=== PATIENT | male | born 1945 | race Caucasian/White ===

== ENCOUNTER 2020-08-28 08:06 | Outpatient (REF) | payer MEDICARE, OTHER, SELFPAY ==
[2020-08-28 09:30] LABS: Prostate Specific Antigen 0.89 ng/mL (<0.05-4.0)
== END 2020-08-28 08:07 | disposition home or self-care (01) ==
LOC: HO.LAB 08:06
PROVIDERS: PCP Family Medicine; Visit Provider Urology
DX: C61 Malignant neoplasm of prostate (principal)
CPT/HCPCS: 36415; 84153

== ENCOUNTER 2021-03-26 08:06 | Outpatient (REF) | payer MEDICARE, OTHER, SELFPAY | END 2021-03-26 08:07 | disposition home or self-care (01) | LOC: HO.LAB 08:06 | PROVIDERS: PCP Family Medicine; Visit Provider Urology | DX: Z12.5 Encounter for screening for malignant neoplasm of prostate (principal); R97.20 Elevated prostate specific antigen [PSA] | CPT/HCPCS: 36415; 84153 ==

== ENCOUNTER → 2021-04-02 14:33 | Outpatient (BNVA) | payer MEDICARE, OTHER, SELFPAY | PROVIDERS: PCP Family Medicine; Visit Provider Urology | DX: C61 Malignant neoplasm of prostate (principal); N40.1 Benign prostatic hyperplasia with lower urinary tract symptoms; N13.8 Other obstructive and reflux uropathy | CPT/HCPCS: 99212 ==

== ENCOUNTER 2022-03-25 09:02 | Outpatient (REF) | payer MEDICARE, OTHER, SELFPAY ==
[2022-03-25 10:40] LABS: Prostate Specific Antigen 0.66 ng/mL (<0.05-4.0)
== END 2022-03-25 09:03 | disposition home or self-care (01) ==
LOC: HO.LAB 09:02
PROVIDERS: PCP Family Medicine; Visit Provider Urology
DX: Z12.5 Encounter for screening for malignant neoplasm of prostate (principal); N40.1 Benign prostatic hyperplasia with lower urinary tract symptoms; N13.8 Other obstructive and reflux uropathy
CPT/HCPCS: 36415; 84153

== ENCOUNTER → 2022-04-03 09:26 | Outpatient (BNVA) | payer MEDICARE, OTHER, SELFPAY | PROVIDERS: PCP Family Medicine; Visit Provider Urology | DX: C61 Malignant neoplasm of prostate (principal); N40.1 Benign prostatic hyperplasia with lower urinary tract symptoms; N13.8 Other obstructive and reflux uropathy | CPT/HCPCS: 99212 ==

== ENCOUNTER 2022-08-13 08:01 | Outpatient (REF) | payer MEDICARE, OTHER, SELFPAY ==
[2022-08-13 08:13] LABS: MANUAL DIFF FLAG NO
[2022-08-13 08:30] LABS: Basophils Absolute Auto 0.1 X10*3/uL (0.0-0.2); Basophils Percent Auto 1.1 % (0-2); Eosinophils Absolute Auto 0.3 X10*3/uL (0.0-0.4); Eosinophils Percent Auto 3.9 % (0-4); Hematocrit 46.4 % (42.0-52.0); Hemoglobin 15.4 g/dl (14.0-18.0); Imm Gran Abs Auto 0.01 X10*3/uL (0.00-0.03); Imm Gran Pct Auto 0.1 % (0.0-0.4); Lymphocytes Absolute Auto 1.8 X10*3/uL (1.2-4.9); Lymphocytes Percent Auto 24.7 % (20-40); Mean Corpuscular HGB Conc 33.2 g/dl (31.0-36.0); Mean Corpuscular Hemoglobin 29.6 pg (27.0-33.0); Mean Corpuscular Volume 89.1 fL (80.0-98.0); Mean Platelet Volume 9.1 fL (9.4-12.4); Monocytes Absolute Auto 0.4 X10*3/uL (0.1-1.2); Monocytes Percent Auto 6.1 % (2-11); Neutrophils Absolute Auto 4.7 x10*3/uL (2.0-8.3); Neutrophils Percent Auto 64.1 % (45-73); Platelet Count 318 X10*3/uL (160-400); Red Blood Count 5.21 X10*6/uL (4.60-5.80); White Blood Count 7.3 X10*3/uL (4.8-10.8)
[2022-08-13 08:34] LABS: Estimated Average Glucose 128 mg/dL; Hemoglobin A1c % 6.1 %
[2022-08-13 09:29] LABS: Alanine Aminotransferase 17 U/L (0-40); Albumin Level 3.9 g/dL (3.5-5.0); Alkaline Phosphatase 66 U/L (39-117); Anion Gap 12 (12-20); Aspartate Amino Transferase 21 U/L (5-37); Bilirubin Total 0.7 mg/dL (0.0-1.0); Blood Urea Nitrogen 9 mg/dL (9-16); Calcium 9.5 mg/dL (8.4-10.2); Carbon Dioxide 32 mmol/L (22-29); Chloride 98 mmol/L (96-108); Cholesterol 178 mg/dL; Estimated Glomerular Filt Rate > 60; Glucose Random 160 mg/dL (60-115); HDL Cholesterol 72 mg/dL; Iron 118 mcg/dL (45-160); LDL Cholesterol Calculated 95 mg/dl; Osmolality, Serum 293 mosm/kg (281-305); Percent Iron Saturation 37 % (15-50); Potassium 3.8 mmol/L (3.3-5.1); Sodium 138 mmol/L (135-145); TSH reflex Free T4 0.64 uIU/mL (0.32-4.0); Total Iron Binding Capacity 323 mcg/dL (228-428); Total Protein 6.9 g/dL (6.5-8.0); Triglycerides 55 mg/dL; Unsaturated Iron Binding 205 ug/dL
[2022-08-13 18:56] LABS: Creatinine Urine 273.11 mg/dL; Microalbum/Creatinine Ratio Ur 36.6 ug/mg cr
[2022-08-13 19:25] LABS: Osmolality Urine 595 mosm/kg (373-1093)
== END 2022-08-13 08:02 | disposition home or self-care (01) ==
LOC: HO.LAB 08:01
PROVIDERS: PCP Family Medicine; Visit Provider Internal Medicine
DX: C61 Malignant neoplasm of prostate (principal); E11.9 Type 2 diabetes mellitus without complications; E78.5 Hyperlipidemia, unspecified; R06.6 Hiccough; E61.1 Iron deficiency
CPT/HCPCS: 36415; 80053; 80061; 82043; 83036; 83540; 83930; 83935; 84443; 85025

== ENCOUNTER 2022-11-10 11:47 | Outpatient (REF) | payer MEDICARE, OTHER, SELFPAY ==
[2022-11-10 14:05] LABS: MANUAL DIFF FLAG NO
[2022-11-10 14:09] LABS: Basophils Absolute Auto 0.1 X10*3/uL (0.0-0.2); Basophils Percent Auto 0.5 % (0-2); Eosinophils Absolute Auto 0.1 X10*3/uL (0.0-0.4); Eosinophils Percent Auto 0.6 % (0-4); Hematocrit 45.6 % (42.0-52.0); Hemoglobin 15.4 g/dl (14.0-18.0); Imm Gran Abs Auto 0.09 X10*3/uL (0.00-0.03); Imm Gran Pct Auto 0.5 % (0.0-0.4); Lymphocytes Absolute Auto 0.9 X10*3/uL (1.2-4.9); Lymphocytes Percent Auto 4.9 % (20-40); Mean Corpuscular HGB Conc 33.8 g/dl (31.0-36.0); Mean Corpuscular Hemoglobin 30.7 pg (27.0-33.0); Monocytes Absolute Auto 0.9 X10*3/uL (0.1-1.2); Neutrophils Absolute Auto 15.8 x10*3/uL (2.0-8.3); Neutrophils Percent Auto 88.5 % (45-73); Platelet Count 273 X10*3/uL (160-400); Red Blood Count 5.01 X10*6/uL (4.60-5.80); Red Cell Distribution Width 13.4 % (11.0-16.0); White Blood Count 17.9 X10*3/uL (4.8-10.8)
[2022-11-10 14:54] LABS: Alanine Aminotransferase 11 U/L (0-40); Albumin Level 4.2 g/dL (3.5-5.0); Alkaline Phosphatase 86 U/L (39-117); Anion Gap 14 (12-20); Aspartate Amino Transferase 21 U/L (5-37); Bilirubin Total 1.2 mg/dL (0.0-1.0); Blood Urea Nitrogen 13 mg/dL (9-16); Calcium 9.4 mg/dL (8.4-10.2); Carbon Dioxide 30 mmol/L (22-29); Chloride 95 mmol/L (96-108); Estimated Glomerular Filt Rate > 60; Glucose Random 181 mg/dL (60-115); Potassium 4.4 mmol/L (3.3-5.1); Sodium 135 mmol/L (135-145); Total Protein 7.4 g/dL (6.5-8.0)
[2022-11-10 15:22] LABS: Folate 8.8 ng/mL (> or = 4.0); TSH reflex Free T4 0.54 uIU/mL (0.32-4.0); Vitamin B12 491 pg/mL (200-900); Vitamin D 25-OH Total 17.7 ng/mL (>30)
== END 2022-11-10 11:48 | disposition home or self-care (01) ==
LOC: HO.HMGCLDS 11:47
PROVIDERS: PCP Internal Medicine; Visit Provider Internal Medicine
DX: E87.1 Hypo-osmolality and hyponatremia (principal); E78.5 Hyperlipidemia, unspecified; I10 Essential (primary) hypertension; R41.3 Other amnesia; E11.9 Type 2 diabetes mellitus without complications
CPT/HCPCS: 36415; 80053; 82306; 82607; 82746; 84443; 85025

== ENCOUNTER 2022-11-24 07:57 | Outpatient (REF) | payer MEDICARE, OTHER, SELFPAY ==
[2022-11-24 08:37] LABS: Estimated Average Glucose 128 mg/dL; Hemoglobin A1c % 6.1 %
[2022-11-24 12:36] LABS: Creatinine Urine 279.34 mg/dL; Microalbum/Creatinine Ratio Ur 119.9 ug/mg cr
== END 2022-11-24 07:58 | disposition home or self-care (01) ==
LOC: HO.LAB 07:57
PROVIDERS: PCP Family Medicine; Visit Provider Internal Medicine
DX: E11.9 Type 2 diabetes mellitus without complications (principal); C61 Malignant neoplasm of prostate; R06.6 Hiccough; E78.5 Hyperlipidemia, unspecified
CPT/HCPCS: 36415; 82043; 83036

== ENCOUNTER 2023-03-23 07:22 | Outpatient (REF) | payer MEDICARE, OTHER, SELFPAY ==
[2023-03-23 08:58] LABS: Prostate Specific Antigen 0.53 ng/mL (<0.05-4.0)
== END 2023-03-23 07:23 | disposition home or self-care (01) ==
LOC: HO.LAB 07:22
PROVIDERS: PCP Internal Medicine; Visit Provider Urology
DX: N40.1 Benign prostatic hyperplasia with lower urinary tract symptoms (principal); N13.8 Other obstructive and reflux uropathy; C61 Malignant neoplasm of prostate; Z12.5 Encounter for screening for malignant neoplasm of prostate
CPT/HCPCS: 36415; 84153

== ENCOUNTER 2023-04-02 09:14 | Outpatient (AMB) | payer MEDICARE, OTHER, SELFPAY ==
--- NOTE | 2023-04-02 09:28 | A.OFFVIS_ITS ---
Intake Intake Visit Reasons: 1Y PSA(set) Intake Note: Patient is present for Follow Up PSA Urology Med: None Antibiotic Allergy: None Blood Thinner: None Pharmacy: [facility] Allergies No Known Allergies [No Known Allergies*] Allergy (Verified 04/02/23 09:29) HPI HPI Comments History of Present Illness Details Aditya is very pleasant male. He is seen for the following urologic issues - prostate cancer - radiation cystitis PSA remains in range 0.53 Continue yearly evaluation Large right inguinal hernia with persistent groin fungal infection Referral general surgery Two month follow-up tele visit solifenacin trial Radiation cystitis Nocturia times 3-4 Does drink more than 6 glasses of water per day. 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 Urgency frequency during the day Trial of solifenacin Prostate cancer intermediate risk, radiation therapy July 2014 Minimal symptoms Effective bladder emptying No hematuria PSA historically ranges 0.4 to 0.9 PSA - 04/13 0.5, 04/14 0.66, 04/15 0.53 Reassurance provided Prior history of renal stones with ESWL Ultrasound 03/11 negative with renal cyst PFSH Medical History Diabetes mellitus, type II High cholesterol Prostate cancer Surgical History History of surgery Family History Mother Diabetes Hypertension Father Smoker Social History Housing: House Patient Tobacco Use Status: Former Tobacco user e-Cigarette/Vaping Use: Never Used Current occupational status: retired Cognitive needs: No Hearing needs: No Vision needs: No Review of Systems Const Denies chills and Denies fever(s) Card Reports no additional complaints and Denies syncope Resp Denies cough GI Denies abdominal pain and Denies heartburn Reports as per HPI and Denies change in libido Neuro Denies syncope Psych Denies change in libido Endo Denies change in libido Physical Exam Const General: cooperative, healthy appearing, comfortable and no acute distress Orientation/consciousness: patient oriented x3 HEENT Face and sinus: Yes normal facial exam Mouth: moist mucous membranes Neck Neck: Yes normal visual inspection, Yes full ROM and Yes trachea midline Chest Chest palpation & inspection: normal inspection of the chest Resp Effort & Inspection: normal respiratory effort, able to speak in complete sentences and no respiratory distress GI Inspection: Yes normal to inspection Back/Spine/Pelvis Cervical Spine: normal cervical lordosis Thoracic/Lumbar Spine: thoracic and lumbar spine normal to inspection Skin General skin exam: no rashes or lesions noted Neuro General: patient oriented x3, gait normal, tone normal and moves all extremities Extrem General: Yes normal to inspection and Yes capillary refill normal Assessment & Plan Assessment & Plan (1) Radiation cystitis: Code(s): N30.40 - Irradiation cystitis without hematuria (2) Urinary urgency: Code(s): R39.15 - Urgency of urination (3) Inguinal hernia: Code(s): K40.90 - Unilateral inguinal hernia, without obstruction or gangrene, not specified as recurrent Plan Two month follow-up tele visit solifenacin trial Orders: Referrals General Surgery Referral K40.90 - Unilateral inguinal hernia, without obstruction or gangrene, not specified as recurrent Medications: New solifenacin 5 mg PO DAILY 30 days 30 tabs 1RF N30.40 - Irradiation cystitis without hematuria Patient Instructions: Imaging studies, laboratory and physical exam results were discussed and reviewed in detail. No major barriers to patient understanding were identified. An opportunity to ask questions regarding the treatment plan was provided. All questions were answered. The patient expressed understanding and agreement with the above treatment plan. The patient is aware they should contact our office by phone for worsening of their current condition or the appearance of new urologic symptoms. Compliance is encouraged with any medications and followup testing that is ordered. It is a privilege to participate in the urologic care of your patient. If you have any questions or concerns regarding treatment for the above conditions, or other urologic issues, please do not hesitate to contact me. The office telephone contact is [phone]. This note is constructed using voice recognition software. While every effort has been made to ensure accuracy dictaphone technician errors may have been included. Yours sincerely, Dr Eddie Frank MD, [facility] - Urology Providers of Expert, Compassionate Care for the Genitourinary System Coding Level of Care Code Est Pt Level 4 (03446) Diagnoses Radiation cystitis N30.40 Urinary urgency R39.15 Inguinal hernia K40.90
== END 2023-04-02 10:06 | disposition home or self-care (01) ==
PROVIDERS: Visit Provider Urology
DX: N30.40 Irradiation cystitis without hematuria (principal); R39.15 Urgency of urination; K40.90 Unilateral inguinal hernia, without obstruction or gangrene, not specified as recurrent
CPT/HCPCS: 99214

== ENCOUNTER → 2023-04-02 09:14 | Outpatient (BNVA) | payer MEDICARE, OTHER, SELFPAY | PROVIDERS: Visit Provider Urology | DX: N30.40 Irradiation cystitis without hematuria (principal); R39.15 Urgency of urination; K40.90 Unilateral inguinal hernia, without obstruction or gangrene, not specified as recurrent | CPT/HCPCS: 99212 ==

== ENCOUNTER 2023-04-15 10:08 | Outpatient (AMB) | payer MEDICARE, OTHER, SELFPAY ==
[2023-04-15 10:12] VITALS: BP 140/70; PULSE 85; BMI 22.2
--- NOTE | 2023-04-15 10:12 | MHC.OFFVIS ---
Intake Vital Signs 04/15/23 10:12 Height 5 ft 9 in Weight 150 lb 8 oz BMI 22.2 BP 140/70 H Blood Pressure Location Lt brachial Position Sitting Pulse 85 Intake Visit Reasons: large left inguinal hernia Intake Note: Patient is seen in office for evaluation and treatment of a large right inguinal hernia. Patient c/o: admits to lump on the right groin for 2 to 3 yrs, discomfort, denies nausea, vomit, diarrhea, constipation, pt states he also has a hiatal hernia Wet Inspector Optical Glass Required: Yes Wet Inspector Optical Glass Language: [place]an Accompanied by: Spouse Allergies No Known Allergies [No Known Allergies*] Allergy (Verified 04/15/23 10:26) Medication List - Last Reconciled 04/15/23 by Roel Tanner MD albuterol sulfate 90 mcg/actuation 0 mcg inhalation amlodipine-benazepril 10-40 mg 1 cap PO DAILY famotidine 40 mg PO QPM ferrous sulfate 325 mg PO DAILY PRN glipizide 5 mg PO BID memantine 5 mg PO BID mirtazapine 15 mg PO BEDTIME omeprazole 40 mg PO QAM pravastatin 10 mg PO BEDTIME sodium chloride 1,000 mg PO DAILY solifenacin 5 mg PO DAILY 30 days thiamine HCl (vitamin B1) (Vitamin B-1) 100 mg PO DAILY HPI HPI Comments History of Present Illness Details 77-year-old male patient presenting for evaluation of a large right inguinal hernia. He is uncertain how long the hernia has been present but feels it has been many years. The hernias gradually increased in size and is now become quite large. He reports chronic hiccups for the past 2 years. He denies nausea, vomiting, fever, chills, diarrhea, or constipation. He does have anorexia with weight loss. Recent colonoscopy was negative. He presents for evaluation of repair of this right inguinal hernia. He denies a previous history of hernia repairs. [facility] Medical History Diabetes mellitus, type II High cholesterol Prostate cancer Surgical History History of surgery Family History Mother Diabetes Hypertension Father Smoker Social History Housing: House Patient Tobacco Use Status: Former Tobacco user e-Cigarette/Vaping Use: Never Used Current occupational status: retired Cognitive needs: No Hearing needs: No Vision needs: No Review of Systems Const All systems reviewed & are unremarkable except as noted in HPI and below Denies chills, Denies fever(s), Denies headache(s), Reports malaise, Reports poor appetite and Denies weakness ENT Denies headache(s) Card Denies chest pain, Denies irregular heart rhythm, Denies palpitations and Denies dyspnea Resp Details: Hiccups Denies cough, Denies excessive phlegm production and Denies dyspnea GI Denies abdominal pain, Denies bloating, Denies change in bowel habits, Denies constipation, Denies heartburn, Denies diarrhea, Denies nausea and Denies vomiting Denies difficulty urinating and Denies urinary frequency Musc Denies back pain, Denies muscle weakness and Denies numbness Skin/Breast Denies changing lesions and Denies unusual bruising Neuro Denies headache(s), Denies numbness, Denies paresthesias and Denies weakness Psych Denies anxiety and Denies depression Endo Denies palpitations Audie/Lymph Denies lymphadenopathy Physical Exam Vital Signs: Last Vital Signs Pulse 85 04/15/23 10:12 BP 140/70 H 04/15/23 10:12 BMI result Body Mass Index 22.2 Const General: cooperative and no acute distress Nutritional Appearance: well nourished Orientation/consciousness: patient oriented x3 Limitations: no limitations HEENT Head: Yes normocephalic and Yes atraumatic Ears: hearing grossly normal bilaterally Resp Effort & Inspection: normal respiratory effort, no audible wheezes, no cough and no respiratory distress Cardio Jugular venous distension: no JVD GI Other: Large right inguinal hernia extending into the scrotal sac. Hernia is not reducible but does increase in size with Valsalva. No hernia noted on the left side. Inspection: Yes normal to inspection Skin Other: Warm, dry, no rash Neuro General: patient oriented x3 Extrem General: Yes no clubbing, cyanosis or edema Assessment & Plan Assessment & Plan (1) Inguinal hernia: Comment: Right Code(s): K40.90 - Unilateral inguinal hernia, without obstruction or gangrene, not specified as recurrent Plan 77-year-old male patient presenting with an incarcerated right inguinal hernia without evidence of obstruction or gangrene. I recommended repair of the right inguinal hernia with mesh we performed as an outpatient surgery. After discussion of the procedure, risks, and alternatives, he consents to the repair of right inguinal hernia with mesh. Coding Level of Care Code New Pt Level 4 (24281) Diagnoses Inguinal hernia K40.90
== END 2023-04-15 10:33 | disposition home or self-care (01) ==
PROVIDERS: PCP Internal Medicine; Visit Provider Surgery
DX: K40.90 Unilateral inguinal hernia, without obstruction or gangrene, not specified as recurrent (principal)
CPT/HCPCS: 99204

== ENCOUNTER → 2023-04-15 10:08 | Outpatient (BNVA) | payer MEDICARE, OTHER, SELFPAY | PROVIDERS: PCP Internal Medicine; Visit Provider Surgery | DX: K40.90 Unilateral inguinal hernia, without obstruction or gangrene, not specified as recurrent (principal) | CPT/HCPCS: 99202 ==

== ENCOUNTER 2023-04-29 07:13 | Day surgery (SDC) | payer MEDICARE, OTHER, SELFPAY ==
[2023-04-24 13:44] VITALS: BMI 22.1
--- NOTE | 2023-04-28 08:46 | HO.ANESPROP2 ---
Documented by User: Barbara Adhikari NP 04/28/23 08:48 HPI - Anesthesia Eval Consult details Narrative: 77yo M for Open Hernia Repair Inguinal w/mesh PMFSH Active Problems Active Problems: All Active Problems (Updated 04/24/23 @ 13:36 by Amy Duncan RN) Hyperlipidemia (Acute) Hiccups (Acute) Iron deficiency (Acute) Hyponatremia (Acute) Memory deficit (Acute) HTN (hypertension) (Acute) Inguinal hernia (Acute) Urinary urgency (Acute) Radiation cystitis (Acute) Diabetes mellitus, type II (Acute) Prostate cancer (Acute) Past Medical History Medical History Dementia Diabetes mellitus, type II Elevated cholesterol GERD (gastroesophageal reflux disease) High cholesterol HTN (hypertension) Memory deficit Prostate cancer Radiation cystitis Family History Family History Mother Diabetes Hypertension Father Smoker Surgical History Surgical History H/O lithotripsy History of surgery Social History Social History Housing: House Patient Tobacco Use Status: Former Tobacco user Quit Date: >20 yrs ago e-Cigarette/Vaping Use: Never Used Use of substances other than those prescribed or required for medical reasons: No Are you DNR?: No Advance Directives: No Advance Directives Information Provided: Yes Current occupational status: retired Cognitive needs: No Hearing needs: No Vision needs: No Meds Allergies Allergy/AdvReac Type Severity Reaction Status Date / Time No Known Allergies Allergy Verified 04/29/23 07:38 [No Known Allergies*] Home Medications Medication Instructions Recorded Confirmed Last Taken Type glipizide 5 mg tablet 5 mg PO BID 04/02/21 04/29/23 Unknown History albuterol sulfate 90 mcg/actuation 0 mcg inhalation 04/02/22 04/15/23 Unknown History aerosol inhaler mirtazapine 15 mg tablet 15 mg PO BEDTIME 04/02/22 04/29/23 Unknown History pravastatin 10 mg tablet 10 mg PO BEDTIME 04/02/22 04/29/23 Unknown History thiamine HCl (vitamin B1) 100 mg 100 mg PO DAILY 04/02/22 04/29/23 Unknown History tablet (Vitamin B-1) amlodipine 10 mg-benazepril 40 mg 1 cap PO DAILY 08/12/22 04/29/23 Unknown History capsule sodium chloride 1,000 mg soluble 1,000 mg PO DAILY 08/12/22 04/29/23 Unknown History tablet famotidine 40 mg tablet 40 mg PO QPM 11/10/22 04/29/23 Unknown History ferrous sulfate 325 mg (65 mg 325 mg PO DAILY 11/10/22 04/29/23 Unknown History iron) tablet omeprazole 40 mg capsule,delayed 40 mg PO QAM 11/10/22 04/29/23 Unknown History release memantine 5 mg tablet 5 mg PO BID 04/02/23 04/29/23 Unknown History Exam Exam Date and Time: April 28, 2023 0846 Height,Weight and Vital Signs: Height 5 ft 9 in Weight 68.039 kg Pertinent Lab Results Pertinent Lab Results: Laboratory Tests 11/10/22 11/10/22 11:56 11:56 WBC 17.9 H Hgb 15.4 Hct 45.6 Plt Count 273 Sodium 135 Potassium 4.4 Chloride 95 L Carbon Dioxide 30 H BUN 13 Creatinine 1.04 Assessment and Plan Assessment Anesthesia Assessment: Chart Reviewed Documented by User: Veronica Villalpando MD 04/29/23 08:29 [facility] Past Medical History Medical History Dementia Diabetes mellitus, type II Elevated cholesterol GERD (gastroesophageal reflux disease) High cholesterol HTN (hypertension) Memory deficit Prostate cancer Radiation cystitis Family History Family History Mother Diabetes Hypertension Father Smoker Surgical History Surgical History H/O lithotripsy History of surgery History of Problems with Anesthesia: No Social History Social History Housing: House Patient Tobacco Use Status: Former Tobacco user Quit Date: >20 yrs ago e-Cigarette/Vaping Use: Never Used Use of substances other than those prescribed or required for medical reasons: No Are you DNR?: No Advance Directives: No Advance Directives Information Provided: Yes Current occupational status: retired Cognitive needs: No Hearing needs: No Vision needs: No Meds Allergies Allergy/AdvReac Type Severity Reaction Status Date / Time No Known Allergies Allergy Verified 04/29/23 07:38 [No Known Allergies*] Home Medications Medication Instructions Recorded Confirmed Last Taken Type glipizide 5 mg tablet 5 mg PO BID 04/02/21 04/29/23 Unknown History albuterol sulfate 90 mcg/actuation 0 mcg inhalation 04/02/22 04/15/23 Unknown History aerosol inhaler mirtazapine 15 mg tablet 15 mg PO BEDTIME 04/02/22 04/29/23 Unknown History pravastatin 10 mg tablet 10 mg PO BEDTIME 04/02/22 04/29/23 Unknown History thiamine HCl (vitamin B1) 100 mg 100 mg PO DAILY 04/02/22 04/29/23 Unknown History tablet (Vitamin B-1) amlodipine 10 mg-benazepril 40 mg 1 cap PO DAILY 08/12/22 04/29/23 Unknown History capsule sodium chloride 1,000 mg soluble 1,000 mg PO DAILY 08/12/22 04/29/23 Unknown History tablet famotidine 40 mg tablet 40 mg PO QPM 11/10/22 04/29/23 Unknown History ferrous sulfate 325 mg (65 mg 325 mg PO DAILY 11/10/22 04/29/23 Unknown History iron) tablet omeprazole 40 mg capsule,delayed 40 mg PO QAM 11/10/22 04/29/23 Unknown History release memantine 5 mg tablet 5 mg PO BID 04/02/23 04/29/23 Unknown History Exam Airway Mallampati Class: II (edentulous) TM Dist: >3cm Neck ROM: Full Loose/Missing/Broken Teeth: Yes Heart: RRR Lungs: CTA Assessment and Plan Assessment Anesthesia Assessment: Anesthesia Plan Discussed Final Anesthetic Review History of Problems with Anesthesia: No NPO: Yes ASA Class: II Final Preanesthetic Review: Meds/Allgs Chart Reviewed, Consent Obtained/Reviewed and Anes Risks/Benef Reviewed Patient Risk: Low Procedure Risk: Low Anesthetic Plan Anesthetic Plan: MAC: Disposition: Standard PACU
[2023-04-29] VITALS (9 sets, daily range): BP systolic 117–170; BP diastolic 60–80; PULSE 55–73; RESP 10–18; TEMP 36.3–36.6; O2SAT 96–100
--- NOTE | 2023-04-29 | ECG_ITS ---
Test Reason : htn, dm, preop Blood Pressure : / mmHG Vent. Rate : 059 BPM Atrial Rate : 059 BPM P-R Int : 182 ms QRS Dur : 096 ms QT Int : 422 ms P-R-T Axes : 071 045 049 degrees QTc Int : 417 ms Sinus bradycardia Minimal voltage criteria for LVH, may be normal variant ( Sokolow-Galvan ) Borderline ECG No previous ECGs available Referred By: Barbara Adhikari Electronically Signed By:LATONIA GARCÍA
[2023-04-29] MEDS: Lactated Ringers 1,000 ML 100 ML IVCONT (08:23)
[2023-04-29 08:24] LABS: Glucose, Whole Blood 152 mg/dL (60-115)
--- NOTE | 2023-04-29 08:46 | MHC.SHP ---
Pre-Procedural Eval Section A Date of Service: 04/29/23 The patient is an INPATIENT: No Changes since office visit: Yes Patient answered all questions; No Cold of Flu in the past 2 weeks, No New Medical Problems and No Changes in Medication The History & Physical has been completed within 30 days and I have reviewed it.: Yes Section B Chief Complaint: Unilateral inguinal hernia, without obstruction Allergies: Allergies Allergy/AdvReac Type Severity Reaction Status Date / Time No Known Allergies Allergy Verified 04/29/23 07:38 [No Known Allergies*] Plan Diagnosis/Plan: Unchanged I have reviewed the history and physical and performed a pertinent physical examination on my patient. No changes have occurred unless specified. Time Spent With Patient Time: Total time managing care of this patient today ____ minutes.
--- NOTE | 2023-04-29 11:12 | P.OP_ITS ---
Operative Note Operative Note Date of Service: 04/29/23 Narrative: Preoperative diagnosis: Right inguinal hernia incarcerated Postoperative diagnosis: Same Procedure: Bassini repair right inguinal hernia Surgeon: Roel Tanner MD Trucking Supervisor: KAYLEN Matamoros; KAYLEN Frias Anesthesia: General LMA Indications for procedure: 77-year-old male patient presenting with a large right inguinal hernia non reducible which is increasing in size and causing discomfort. Operative findings: Large incarcerated right inguinal hernia direct with small perforation in cecum. Specimen: None Estimated blood loss: 10 mL Complications: None Procedure details: Patient was brought to the OR placed in a supine position. After administering general anesthesia patient's abdomen was prepped with ChloraPrep and draped in a sterile fashion. A surgical time-out was called the consent confirmed. Patient received preoperative antibiotics and Venodyne boots were in place. Local anesthesia consisting of 0.5% Sensorcaine with epinephrine was infiltrated over the right inguinal ligament. Incision was then made with a scalpel carried out through subcutaneous tissue, past Yvonne's fascia and up to the external oblique aponeurosis. Local was infiltrated below the aponeurosis and the aponeurosis incised using the scalpel. The spermatic cord was then dissected from the surrounding inguinal canal and retracted using a Severiano drain. Fibers of the cremaster muscle were then opened. Patient was found to have a large direct inguinal hernia extending into the scrotum with incarceration. Patient was found to have is cecum, appendix, and terminal ileum within the hernia sac. Upon mobilization an area of perforation was identified in the proximal lateral cecum. No fecal soilage was identified within the hernia sac. This was repaired using a running 3-0 Polysorb suture followed by interrupted Lembert 3-0 Surgilon sutures. Once the incarcerated segment was fully mobilized this was reduced into the abdominal cavity. Because of the evidence of perforation decision was made to avoid using mesh for the repair. The direct space was reapproximated using interrupted 0 Polysorb sutures to close the posterior sheath. A Bassini repair was then performed using 0 Tycron sutures to approximate conjoined tendon to the shelving edge of the inguinal ligament. The internal ring was fashioned to allow the tip of the index finger to pass through. A relaxing incision was made on the conjoined tendon to allow less tension at the repair. Wounds were then irrigated with saline solution and suctioned dry. External oblique aponeurosis was then closed using a running 2-0 Polysorb suture. Yvonne's fascia was reapproximated using interrupted 3-0 Polysorb sutures as was dermis. Skin was then closed using a running subcuticular 4-0 Polysorb suture. Steri-Strips, 2 x 2 gauze and Tegaderm were then applied. The patient tolerated the procedure well. Sponge, instrument, and needle counts reported as correct. The patient was transferred to PACU in stable condition.
[2023-04-29] MEDS: fentaNYL citrate/PF 100 MCG/2 ML VIAL 25 MCG IVPUSH ×2 (11:34→11:39)
== END 2023-04-29 12:41 | disposition home or self-care (01) ==
PROVIDERS: PCP Internal Medicine; Visit Provider Surgery
PROC: (CPT 49507; principal; 2023-04-29 09:10)
DX: K40.30 Unilateral inguinal hernia, with obstruction, without gangrene, not specified as recurrent (principal); K63.1 Perforation of intestine (nontraumatic); E11.9 Type 2 diabetes mellitus without complications; E78.00 Pure hypercholesterolemia, unspecified; I10 Essential (primary) hypertension; F03.90 Unspecified dementia, unspecified severity, without behavioral disturbance, psychotic disturbance, mood disturbance, and anxiety; N30.40 Irradiation cystitis without hematuria; Z87.442 Personal history of urinary calculi; Z85.46 Personal history of malignant neoplasm of prostate; Z92.3 Personal history of irradiation; Z79.84 Long term (current) use of oral hypoglycemic drugs; Z79.899 Other long term (current) drug therapy; Z87.891 Personal history of nicotine dependence
CPT/HCPCS: 49507; 82947; 93005; J0131; J0690; J1100; J1170; J2405; J3010

== ENCOUNTER → 2023-04-29 07:13 | Outpatient (BNV) | payer MEDICARE, OTHER, SELFPAY | PROVIDERS: PCP Internal Medicine; Visit Provider Surgery | DX: K40.30 Unilateral inguinal hernia, with obstruction, without gangrene, not specified as recurrent (principal) | CPT/HCPCS: 49507 ==

== ENCOUNTER 2023-05-08 10:27 | Outpatient (AMB) | payer MEDICARE, OTHER, SELFPAY ==
--- NOTE | 2023-05-08 10:32 | A.OFFVIS_ITS ---
Intake Vital Signs 05/08/23 10:45 Height 5 ft 9 in Weight 149 lb 14.629 oz BMI 22.1 BP 130/80 Blood Pressure Location Lt brachial Position Sitting Intake Visit Reasons: S/P RIH w/mesh Intake Note: Patient is seen in office for post op assessment post right inguinal hernia repair. Patient c/o: admits to some abdominal pain, denies any other concerns Category Development Analyst Required: No Accompanied by: Family/Other Allergies No Known Allergies [No Known Allergies*] Allergy (Verified 05/08/23 10:45) Medication List - Last Reconciled 05/08/23 by Roel Tanner MD albuterol sulfate 90 mcg/actuation 0 mcg inhalation amlodipine-benazepril 10-40 mg 1 cap PO DAILY famotidine 40 mg PO QPM ferrous sulfate 325 mg PO DAILY glipizide 5 mg PO BID memantine 5 mg PO BID mirtazapine 15 mg PO BEDTIME omeprazole 40 mg PO QAM oxycodone 5 mg PO Q6H PRN pravastatin 10 mg PO BEDTIME sodium chloride 1,000 mg PO DAILY solifenacin 5 mg PO DAILY 30 days thiamine HCl (vitamin B1) (Vitamin B-1) 100 mg PO DAILY HPI HPI Comments History of Present Illness Details 77-year-old male patient status post rep air of and an incarcerated right inguinal hernia without mesh. He returns today for a one-week follow-up examination. He reports minor discomfort and swelling in the incision but generally feels well. He is eating without nausea or vomiting. COUNT INCLUDES THE [facility] Medical History (Updated 05/08/23 @ 10:52 by Roel Tanner MD) Dementia Radiation cystitis Memory deficit GERD (gastroesophageal reflux disease) Elevated cholesterol HTN (hypertension) Prostate cancer High cholesterol Diabetes mellitus, type II Surgical History (Updated 05/07/23 @ 14:36 by MARJORIE Donald) History of right inguinal hernia repair (04/29/23) H/O lithotripsy History of surgery Family History Mother Diabetes Hypertension Father Smoker Social History Housing: House Patient Tobacco Use Status: Former Tobacco user Quit Date: >20 yrs ago e-Cigarette/Vaping Use: Never Used Current occupational status: retired Cognitive needs: No Hearing needs: No Vision needs: No Physical Exam Const General: cooperative Nutritional Appearance: average body habitus Limitations: no limitations Resp Effort & Inspection: normal respiratory effort GI Other: Right inguinal incision is clean, dry and intact. There is healing ridge noted. No scrotal swelling or hematoma is appreciated. Skin Other: Warm, dry, no rash Assessment & Plan Assessment & Plan (1) Inguinal hernia: Comment: Right Code(s): K40.90 - Unilateral inguinal hernia, without obstruction or gangrene, not specified as recurrent Qualifiers: Obstruction and gangrene presence: without obstruction or gangrene Laterality: unilateral Recurrence: non-recurrent Qualified Code(s): K40.90 - Unilateral inguinal hernia, without obstruction or gangrene, not specified as recurrent Plan Patient returns following repair of an incarcerated right inguinal hernia without mesh. He tolerated the procedure well the wounds are healing nicely. He should continue to avoid lifting greater than 10 lb and should return 1 month for follow-up examination. Coding Level of Care Code Global (95426) Diagnoses Non-recurrent unilateral inguinal hernia without obstruction or gangrene K40.90 Obstruction and gangrene presence: without obstruction or gangrene Laterality: unilateral Recurrence: non-recurrent
[2023-05-08 10:45] VITALS: BP 130/80; BMI 22.1
== END 2023-05-08 10:55 | disposition home or self-care (01) ==
PROVIDERS: PCP Internal Medicine; Visit Provider Surgery
DX: K40.90 Unilateral inguinal hernia, without obstruction or gangrene, not specified as recurrent (principal)
CPT/HCPCS: 99024

== ENCOUNTER → 2023-05-08 10:27 | Outpatient (BNVA) | payer MEDICARE, OTHER, SELFPAY | PROVIDERS: PCP Internal Medicine; Visit Provider Surgery ==

== ENCOUNTER 2023-06-11 08:20 | Outpatient (AMB) | payer MEDICARE, OTHER, SELFPAY ==
--- NOTE | 2023-06-11 11:29 | MHC.OFFVIS ---
Intake Intake Visit Reasons: 2m follow up Intake Note: Patient is Present for Telephone Follow Up Urology Med: [facility] Antibiotic Allergy: None Blood Thinner: None Pharamcy: [facility] Allergies No Known Allergies [No Known Allergies*] Allergy (Verified 05/08/23 10:45) HPI HPI Comments History of Present Illness Details Aditya is very pleasant male. He is seen for the following urologic issues - prostate cancer - radiation cystitis Telemedicine Evaluation 15 min Consultation Unsocial Cha Video attempted Two month follow-up for solifenacin trial. Had improvement with 5 mg Will increase to 10 mg Follow-up in 6 months Did have lateral right inguinal hernia repaired Dr. Tanner PSA remains in range 0.53 Continue yearly evaluation Radiation cystitis Nocturia times 3-4 Does drink more than 6 glasses of water per day. 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 Urgency frequency during the day Good response to solifenacin Prostate cancer intermediate risk, radiation therapy July 2014 Minimal symptoms Effective bladder emptying No hematuria PSA historically ranges 0.4 to 0.9 PSA - 04/13 0.5, 04/14 0.66, 04/15 0.53 Reassurance provided Prior history of renal stones with ESWL Ultrasound 03/[address] [facility] Medical History (Updated 05/08/23 @ 10:52 by Roel Tanner MD) Dementia Radiation cystitis Memory deficit GERD (gastroesophageal reflux disease) Elevated cholesterol HTN (hypertension) Prostate cancer High cholesterol Diabetes mellitus, type II Surgical History History of right inguinal hernia repair (04/29/23) H/O lithotripsy History of surgery Family History Mother Diabetes Hypertension Father Smoker Social History Housing: House Patient Tobacco Use Status: Former Tobacco user Quit Date: >20 yrs ago e-Cigarette/Vaping Use: Never Used Current occupational status: retired Cognitive needs: No Hearing needs: No Vision needs: No Review of Systems Const All systems reviewed & are unremarkable except as noted in HPI and below Reports no additional complaints Resp Reports no additional complaints GI Reports no additional complaints Reports as per HPI Musc Reports no additional complaints Physical Exam Telemedicine evaluation Appropriate responses Regular breathing rate and rhythm HEENT Head: Yes normal to inspection Ears: hearing grossly normal bilaterally Eyes General: appearance normal, both eyes and all related structures Neck Neck: Yes normal visual inspection Chest Chest palpation & inspection: normal inspection of the chest Resp Effort & Inspection: normal respiratory effort and able to speak in complete sentences Assessment & Plan Assessment & Plan (1) Radiation cystitis: Code(s): N30.40 - Irradiation cystitis without hematuria (2) Urinary urgency: Code(s): R39.15 - Urgency of urination Plan Six month follow-up Medications: Changed From solifenacin 5 mg PO DAILY 30 days 30 tabs 1RF N30.40 - Irradiation cystitis without hematuria To solifenacin 10 mg PO DAILY 90 days 90 tabs 1RF N30.40 - Irradiation cystitis without hematuria Patient Instructions: Imaging studies, laboratory and physical exam results were discussed and reviewed in detail. No major barriers to patient understanding were identified. An opportunity to ask questions regarding the treatment plan was provided. All questions were answered. The patient expressed understanding and agreement with the above treatment plan. The patient is aware they should contact our office by phone for worsening of their current condition or the appearance of new urologic symptoms. Compliance is encouraged with any medications and followup testing that is ordered. It is a privilege to participate in the urologic care of your patient. If you have any questions or concerns regarding treatment for the above conditions, or other urologic issues, please do not hesitate to contact me. The office telephone contact is [phone]. This note is constructed using voice recognition software. While every effort has been made to ensure accuracy explosive operator bomb errors may have been included. Yours sincerely, Dr Eddie Frank MD, [facility] - Urology Providers of Expert, Compassionate Care for the Genitourinary System Telehealth Telehealth Location of provider rendering services: practice address Location of patient: address on file Patient Identification confirmed using: Name, : Yes Telehealth method: video Patient verbally consented to treatment: Yes Patient verbally consented to billing insurance company: Yes Patient informed of any privacy concerns related to visit: Yes Coding Level of Care Code Tele Est Pt Level 3 (48755) Diagnoses Radiation cystitis N30.40 Urinary urgency R39.15
== END 2023-06-11 12:09 | disposition home or self-care (01) ==
LOC: HO.HUSH 08:20
PROVIDERS: PCP Family Medicine; Visit Provider Urology
DX: N30.40 Irradiation cystitis without hematuria (principal); R39.15 Urgency of urination
CPT/HCPCS: 99213

== ENCOUNTER → 2023-06-11 08:20 | Outpatient (BNVA) | payer MEDICARE, OTHER, SELFPAY | PROVIDERS: PCP Family Medicine; Visit Provider Urology ==

== ENCOUNTER 2023-06-23 14:27 | Outpatient (AMB) | payer MEDICARE, OTHER, SELFPAY ==
--- NOTE | 2023-06-23 14:28 | A.OFFVIS_ITS ---
Intake Vital Signs 06/23/23 14:35 Height 5 ft 9 in Weight 152 lb BMI 22.4 BP 140/80 H Blood Pressure Location Lt brachial Position Sitting Intake Visit Reasons: 1m f/u RIH w/mesh Intake Note: Patient is seen in office for one month follow up visit, post RIH repair. Patient c/o:denies any concern at the time of visit Securities Compliance Examiner Required: No Accompanied by: Family/Other Allergies No Known Allergies [No Known Allergies*] Allergy (Verified 06/23/23 14:36) Medication List - Last Reconciled 06/23/23 by Roel Tanner MD albuterol sulfate 90 mcg/actuation 0 mcg inhalation amlodipine-benazepril 10-40 mg 1 cap PO DAILY famotidine 40 mg PO QPM ferrous sulfate 325 mg PO DAILY glipizide 5 mg PO BID memantine 5 mg PO BID mirtazapine 15 mg PO BEDTIME omeprazole 40 mg PO QAM oxycodone 5 mg PO Q6H PRN pravastatin 10 mg PO BEDTIME sodium chloride 1,000 mg PO DAILY solifenacin 10 mg PO DAILY 90 days thiamine HCl (vitamin B1) (Vitamin B-1) 100 mg PO DAILY HPI HPI Comments History of Present Illness Details 77-year-old male patient status post rep air of and an incarcerated right inguinal hernia without mesh. He returns today for a one-month follow-up examination. He reports minor discomfort and swelling in the incision but generally feels well. He is eating without nausea or vomiting. [facility] Medical History (Updated 05/08/23 @ 10:52 by Roel Tanner MD) Dementia Radiation cystitis Memory deficit GERD (gastroesophageal reflux disease) Elevated cholesterol HTN (hypertension) Prostate cancer High cholesterol Diabetes mellitus, type II Surgical History History of right inguinal hernia repair (04/29/23) H/O lithotripsy History of surgery Family History Mother Diabetes Hypertension Father Smoker Social History Housing: House Patient Tobacco Use Status: Former Tobacco user Quit Date: >20 yrs ago e-Cigarette/Vaping Use: Never Used Current occupational status: retired Cognitive needs: No Hearing needs: No Vision needs: No Physical Exam Const General: cooperative Nutritional Appearance: average body habitus Limitations: no limitations Resp Effort & Inspection: normal respiratory effort GI Other: Right inguinal incision is clean, dry and intact. There is healing ridge noted. No scrotal swelling or hematoma is appreciated. No hernia noted with Valsalva maneuvers. Skin Other: Warm, dry, no rash Assessment & Plan Assessment & Plan (1) Inguinal hernia: Comment: Right Code(s): K40.90 - Unilateral inguinal hernia, without obstruction or gangrene, not specified as recurrent Qualifiers: Obstruction and gangrene presence: without obstruction or gangrene Laterality: unilateral Recurrence: non-recurrent Qualified Code(s): K40.90 - Unilateral inguinal hernia, without obstruction or gangrene, not specified as recurrent Plan Patient returns following repair of an incarcerated right inguinal hernia without mesh. He tolerated the procedure well the wounds are healing nicely. There is no evidence of hernia recurrence at this time. He may resume normal activity without restriction and should follow up as needed. Coding Level of Care Code Global (52148) Diagnoses Non-recurrent unilateral inguinal hernia without obstruction or gangrene K40.90 Obstruction and gangrene presence: without obstruction or gangrene Laterality: unilateral Recurrence: non-recurrent
[2023-06-23 14:35] VITALS: BP 140/80; BMI 22.4
== END 2023-06-23 14:54 | disposition home or self-care (01) ==
PROVIDERS: PCP Family Medicine; Visit Provider Surgery
DX: K40.90 Unilateral inguinal hernia, without obstruction or gangrene, not specified as recurrent (principal)
CPT/HCPCS: 99024

== ENCOUNTER → 2023-06-23 14:27 | Outpatient (BNVA) | payer MEDICARE, OTHER, SELFPAY | PROVIDERS: PCP Family Medicine; Visit Provider Surgery ==

== ENCOUNTER 2023-12-15 10:25 | Outpatient (AMB) | payer MEDICARE, OTHER, SELFPAY ==
--- NOTE | 2023-12-15 10:35 | A.OFFVIS_ITS ---
Intake Visit Reasons: 6M Med Review(Solifenacin) Intake Note: Patient is Present for Follow Up Urology Medication: Solifenacin Antibiotic Allergies: None Blood Thinners: None Patient states that he is doing very well on the Solifenacin Allergies No Known Allergies [No Known Allergies*] Allergy (Verified 12/15/23 10:39) HPI Comments Details: Aditya is very pleasant male. He is seen for the following urologic issues - prostate cancer - radiation cystitis Continue good improvement with 10 mg daily solifenacin Discussed with who is translating Six-month follow-up PVR Radiation cystitis Nocturia times 3-4 Does drink more than 6 glasses of water per day. 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 Urgency frequency during the day Good response to solifenacin 10 mg Prostate cancer intermediate risk, radiation therapy July 2014 Minimal symptoms Effective bladder emptying No hematuria PSA historically ranges 0.4 to 0.9 PSA - 04/13 0.5, 04/14 0.66, 04/15 0.53 Reassurance provided Prior history of renal stones with ESWL Ultrasound 03/11 negative with renal cyst PFSH Medical History Dementia Radiation cystitis Memory deficit GERD (gastroesophageal reflux disease) Elevated cholesterol HTN (hypertension) Prostate cancer High cholesterol Diabetes mellitus, type II Surgical History History of right inguinal hernia repair (04/29/23) H/O lithotripsy History of surgery Family History Mother Diabetes Hypertension Father Smoker Social History Housing: House Patient Tobacco Use Status: Former Tobacco user Quit Date: >20 yrs ago e-Cigarette/Vaping Use: Never Used Current occupational status: retired Cognitive needs: No Hearing needs: No Vision needs: No Review of Systems Const Denies chills and Denies fever(s) Card Reports no additional complaints and Denies syncope Resp Denies cough GI Denies abdominal pain and Denies heartburn Reports as per HPI and Denies change in libido Neuro Denies syncope Psych Denies change in libido Endo Denies change in libido Physical Exam Const General: cooperative, healthy appearing, comfortable and no acute distress Orientation/consciousness: patient oriented x3 HEENT Face and sinus: Yes normal facial exam Mouth: moist mucous membranes Neck Neck: Yes normal visual inspection, Yes full ROM and Yes trachea midline Chest Chest palpation & inspection: normal inspection of the chest Resp Effort & Inspection: normal respiratory effort, able to speak in complete sentences and no respiratory distress GI Inspection: Yes normal to inspection Back/Spine/Pelvis Cervical Spine: normal cervical lordosis Thoracic/Lumbar Spine: thoracic and lumbar spine normal to inspection Skin General skin exam: no rashes or lesions noted Neuro General: patient oriented x3, gait normal, tone normal and moves all extremities Extrem General: Yes normal to inspection and Yes capillary refill normal Assessment & Plan Assessment & Plan (1) Radiation cystitis: Code(s): N30.40 - Irradiation cystitis without hematuria Category: Medical (2) Urinary urgency: Code(s): R39.15 - Urgency of urination Category: Medical (3) Prostate cancer: Comment: s/p RTx 2013, f/u urology Dr. Frank 04/14 annual Code(s): C61 - Malignant neoplasm of prostate Category: Medical Plan Six month follow-up PVR Patient Instructions: Imaging studies, laboratory and physical exam results were discussed and review ed in detail. No major barriers to patient understanding were identified. An opportunity to ask questions regarding the treatment plan was provided. All questions were answered. The patient expressed understanding and agreement with the above treatment plan. The patient is aware they should contact our office by phone for worsening of their current condition or the appearance of new urologic symptoms. Compliance is encouraged with any medications and followup testing that is ordered. It is a privilege to participate in the urologic care of your patient. If you have any questions or concerns regarding treatment for the above conditions, or other urologic issues, please do not hesitate to contact me. The office telephone contact is [phone]. This note is constructed using voice recognition software. While every effort has been made to ensure accuracy sewing supervisor errors may have been included. Yours sincerely, Dr Eddie Frank MD, [facility] - Urology Providers of Expert, Compassionate Care for the Genitourinary System
== END 2023-12-15 11:01 | disposition home or self-care (01) ==
PROVIDERS: PCP Family Medicine; Visit Provider Urology
DX: N30.40 Irradiation cystitis without hematuria (principal); R39.15 Urgency of urination; C61 Malignant neoplasm of prostate
CPT/HCPCS: 99213

== ENCOUNTER → 2023-12-15 10:25 | Outpatient (BNVA) | payer MEDICARE, OTHER, SELFPAY | PROVIDERS: PCP Family Medicine; Visit Provider Urology | DX: N30.40 Irradiation cystitis without hematuria (principal); R39.15 Urgency of urination; C61 Malignant neoplasm of prostate | CPT/HCPCS: 99212 ==

== ENCOUNTER 2024-06-15 10:19 | Outpatient (AMB) | payer OTHER, SELFPAY ==
--- NOTE | 2024-06-15 10:30 | A.OFFVIS_ITS ---
Intake Visit Reasons: 6m/PVR Intake Note: Patient is present for PVR Follow Up Urology Med: Solifenacin Antibiotic Allergy: None Blood Thinner: None Last PSA: 02/2023 0.53 PVR:20ml [employer] Librarian Required: No Granite Cutter Apprentice: Granite Cutter Apprentice Present Accompanied by: Spouse Allergies No Known Allergies [No Known Allergies*] Allergy (Verified 06/15/24 10:40) HPI Comments Details: Aditya is very pleasant male. He is seen for the following urologic issues - prostate cancer - radiation cystitis Six-month follow-up PVR 20 cc Will get PSA at next visit Recent diagnosed with dementia Will switch from solifenacin to trospium Radiation cystitis Nocturia times 3-4 Does drink more than 6 glasses of water per day. 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 Urgency frequency during the day Prior medications include solifenacin Prostate cancer intermediate risk, radiation therapy July 2014 Minimal symptoms Effective bladder emptying No hematuria PSA historically ranges 0.4 to 0.9 PSA - 04/13 0.5, 04/14 0.66, 04/15 0.53 Reassurance provided Prior history of renal stones with ESWL Ultrasound 03/11 negative with renal cyst PFSH Medical History Dementia Radiation cystitis Memory deficit GERD (gastroesophageal reflux disease) Elevated cholesterol HTN (hypertension) Prostate cancer High cholesterol Diabetes mellitus, type II Surgical History History of right inguinal hernia repair (04/29/23) H/O lithotripsy History of surgery Family History Mother Diabetes Hypertension Father Smoker Social History Housing: House Patient Tobacco Use Status: Former Tobacco user e-Cigarette/Vaping Use: Never Used Current occupational status: retired Cognitive needs: No Hearing needs: No Vision needs: No Review of Systems Const Denies chills and Denies fever(s) Card Reports no additional complaints and Denies syncope Resp Denies cough GI Denies abdominal pain and Denies heartburn Reports as per HPI and Denies change in libido Neuro Denies syncope Psych Denies change in libido Endo Denies change in libido Physical Exam Const General: cooperative, healthy appearing, comfortable and no acute distress Orientation/consciousness: patient oriented x3 HEENT Face and sinus: Yes normal facial exam Mouth: moist mucous membranes Neck Neck: Yes normal visual inspection, Yes full ROM and Yes trachea midline Chest Chest palpation & inspection: normal inspection of the chest Resp Effort & Inspection: normal respiratory effort, able to speak in complete sentences and no respiratory distress GI Inspection: Yes normal to inspection Back/Spine/Pelvis Cervical Spine: normal cervical lordosis Thoracic/Lumbar Spine: thoracic and lumbar spine normal to inspection Skin General skin exam: no rashes or lesions noted Neuro General: patient oriented x3, gait normal, tone normal and moves all extremities Extrem General: Yes normal to inspection and Yes capillary refill normal Office Procedures Post Void Residual Post Residual Void Post Void Residual (PVR): 20 02641-Lito Void Residual by ultrasound Assessment & Plan Assessment & Plan (1) Radiation cystitis: Code(s): N30.40 - Irradiation cystitis without hematuria Category: Medical (2) Urinary urgency: Code(s): R39.15 - Urgency of urination Category: Medical Plan Six-month follow-up PSA tele Initiate trospium Orders: Orders AMB Post Void Residual by ultrasound Today R39.15 - Urgency of urination Prostate Specific Antigen 6 Months C61 - Malignant neoplasm of prostate Medications: New trospium ER must be taken on empty stomach at least 1 hour before a meal/food with water only 60 mg PO DAILY 90 days 90 caps 1RF N30.40 - Irradiation cystitis without hematuria Discontinued solifenacin Discontinued Reason: Doctor's Order 10 mg PO DAILY 90 days 90 tabs 1RF N30.40 - Irradiation cystitis without hematuria Patient Instructions: Imaging studies, laboratory and physical exam results were discussed and reviewed in detail. No major barriers to patient understanding were identified. An opportunity to ask questions regarding the treatment plan was provided. All questions were answered. The patient expressed understanding and agreement with the above treatment plan. The patient is aware they should contact our office by phone for worsening of their current condition or the appearance of new urologic symptoms. Compliance is encouraged with any medications and followup testing that is ordered. It is a privilege to participate in the urologic care of your patient. If you have any questions or concerns regarding treatment for the above conditions, or other urologic issues, please do not hesitate to contact me. The office telephone contact is [phone]. This note is constructed using voice recognition software. While every effort has been made to ensure accuracy obstetrics gynecology md errors may have been included. Yours sincerely, Dr Eddie Frank MD, [facility] - Urology Providers of Expert, Compassionate Care for the Genitourinary System Coding Level of Care Code Est Pt Level 4 (64303) Diagnoses Radiation cystitis N30.40 Urinary urgency R39.15 CPT Codes Post Residual Void - PVR CPT Code: 00820-Nsze Void Residual by ultrasound ([id number])
== END 2024-06-15 10:49 | disposition home or self-care (01) ==
PROVIDERS: PCP Family Medicine; Visit Provider Urology
DX: N30.40 Irradiation cystitis without hematuria (principal); R39.15 Urgency of urination
CPT/HCPCS: 99214

== ENCOUNTER → 2024-06-15 10:19 | Outpatient (BNVA) | payer MEDICARE, OTHER, SELFPAY | PROVIDERS: PCP Family Medicine; Visit Provider Urology | DX: N30.40 Irradiation cystitis without hematuria (principal); R39.15 Urgency of urination | CPT/HCPCS: 51798; 99212 ==

== ENCOUNTER 2024-12-06 08:24 | Outpatient (REF) | payer OTHER, SELFPAY ==
--- OUTSIDE RECORDS SUMMARY | 2024-12-06 08:34 | XMS_ITS | Clinical Summary ---
Author Organization [facility], Address [address] [address] Phone Care Team Providers Care Production Quality Manager Name Role Phone Enrico Monzon MD Primary Care Prov ider Allergies No known active allergies Medications amLODIPine-bev zepril (LOTREL) 10-40 MG per capsule Take 1 capsule by mouth daily 04/16/2020 Active escitalopram (LEXAPRO) 5 MG tablet Take 5 mg by mouth daily 07/17/2020 Active glipiZIDE (GLUCOTROL) 5 MG tablet Take 5 mg by mouth twice a day 05/21/2020 Active pantoprazole (PROTONIX) 40 MG EC tablet Take 40 mg by mouth daily 06/29/2020 Active pravastatin (PRAVACHOL) 10 MG tablet Take 10 mg by mouth daily Active QUEtiapine (SEROquel) 25 MG tablet Take 1 tablet in the morning and 2 tablets before bedtime. 08/07/2020 Active gabapentin (NEURONTIN) 100 MG capsule Take 100 mg by mouth 10/16/2020 Active Active Problems Problem Noted Date Diagnosed Date Essential (primary) hypertension 09/05/2020 Type 2 diabetes mellitus without complication Overview (08/28/2020): Last Assessment & Plan: Patient taking glipizide 5 mg twice daily and documented to be taking metformin prior to admission. The dose of Metformin was not identified Hemoglobin A1c of 6.4% on admission Blood sugars improved to 130s today Continue with Lantus 5 units nightly and sliding scale insulin, continue glipizide Hyponatremia 07/30/2020 Overview (08/28/2020): Last Assessment & Plan: Sodium has improved only slightly today to 130, we will continue with the 1 L fluid restriction. Trend BMP We will also continue the patient on recommended urea packet twice daily We will send the area to the pharmacy for processing to determine if it is covered by insurance Social History Tobacco Use Types Packs/Day Years Used Date Smoking Tobacco: Former Smokeless Tobacco: Never Alcohol Use Standard Drinks/Week Comments Never 0 (1 standard drink = 0.6 oz pur e alcohol) AUDIT-C Answer Date Recorded Q1: How often do you have a drink containing alc ohol? Never 08/28/2020 Average Number of Drinks Not on file 021 Frequency of Binge Drinking Not on file 12/2020 Sex and Gender Information Value Date Recorded Sex Assigned at Not on file Legal Sex Male 3:10 PM EST Gender Identity Not on file Sexual Orientation Not on file Plan of Treatment Health Maintenance Due Date Last Done Comments Pneumococcal Vaccine: 50+ Ye ars (1 of 1 - PCV) 1996 Diabetes: Hemoglobin A1C 08/09/2020 Diabetes: Ophthalmology Exam 08/09/2020 Diabetes: Pedal Pulse Checked 08/09/2020 Diabetes: Sensory Foot Exam 08/09/2020 Diabetes: Visual Foot Exam 08/09/2020 Influenza Vaccine (Season Ended) 2025 Hepatitis B Vaccine Aged Out No longe r eligible based on patient's age to complete this topic Insurance Medicare [facility] Medicaid [place] Care Teams Production Quality Manager Relationship Specialty Start Date End Date Enrico Monzon MD [address] [place] [id number] PCP - General Family Medicine 08/28/20
--- OUTSIDE RECORDS SUMMARY | 2024-12-06 08:34 | XMS_ITS ---
Author Organization [address] [facility] Address [address] [place] [address] Phone Care Team Providers Care Home Visitor Name Role Phone Wandy Rivera AIR CONDITIONING MECHANIC Primary Care Provider [phone] [facility] Status:Enrolled (Active) Start date:10/22/2024 Related program episode:Program of All-Inclusive Care for the Elderly (Active) Case Team Name Relationship Phone Wandy Rivera AIR CONDITIONING MECHANIC Nurse Practitioner(Responsibl e Staff) [phone] Continued Care and Services Coordination
--- OUTSIDE RECORDS SUMMARY | 2024-12-06 08:34 | XMS_ITS | Clinical Summary ---
Author Organization 175 [facility] Address [address] [place] [address] Phone Care Team Providers Care Supervising Law Enforcement Analyst Name Role Phone Wandy Rivera SECTION CREWS ACTIVITIES CLERK Primary Care Provider [phone] Allergies No known active allergies Medications acetaminophen (TYLENOL) 325 mg tablet Take 2 Tablets by mouth every 6 hours as needed. Active albuterol HFA (PROAIR HFA ; PROVENTIL HFA ; VENTOLIN HFA) 90 mcg/actuation inhaler Inhale 2 Puffs into the lungs every 4 hours as needed. Active amLODIPine-atorva statin (CADUET) 10-40 mg per tablet Take 1 Tablet by mouth daily. Active famotidine (PEPCID) 40 mg tablet Take 1 Tablet by mouth daily. Active ferrous sulfate 325 mg (65 mg elemental iron) tablet 1 tab by mouth every other day Active glipiZIDE (GLUCOTROL) 5 mg tablet Take 1 Tablet by mouth 2 times daily (before meals). Active glucose blood test strip 1 Strip by In Vitro route as needed. Active memantine (NAMENDA) 5 mg tablet Take 1 Tablet by mouth 2 times daily. Active mirtazapine (REMERON) 15 mg tablet Take 1 Tablet by mouth at bedtime. Active multivit-min/iron /folic acid/K (ADULTS MULTIVITAMIN ORAL) Take 1 Tablet by mouth daily. Active lactose-reduced food (ENSURE ACTIVE HEART HEALTH ORAL) Take 1 Bottle by mouth 3 times daily. Active omeprazole (PriLOSEC) [address] capsule Take 1 Capsule by mouth daily. Active pravastatin (PRAVACHOL) 40 mg tablet Take 1 Tablet by mouth daily. Active sodium chloride 1 gram tablet 1 tab by mouth 1 to 2 times per day prn electrolyte replenishment Active solifenacin (VESICARE) 5 mg tablet Take 2 tablets (10 mg total) by mouth 1 (one) time each day. Active cyanocobalamin (VITAMIN B-12) 100 mcg tablet Take 0.5 Tablets by mouth daily. Active OLANZapine (ZyPREXA ZYDIS) 5 mg disintegrating tablet Dissolve 1 tablet (5 mg total) on top of the tongue at bedtime. Active baclofen (LIORESAL) 10 mg tablet Take by mouth 3 (three) times a day. Active thiamine 100 mg tablet 1 tab by mouth daily 10/06/19 24 Active solifenacin (VESICARE) 10 mg tablet 1 tablet DAILY (route: oral) 06/24/20 23 Active memantine (NAMENDA) 10 mg tablet Take 1 tablet (10 mg total) by mouth 2 (two) times a day. Active umeclidinium-anai nteroL (Anoro Ellipta) 62.5-25 mcg/actuation inhalerIndication s:Chronic obstructive pulmonary disease, unspecified COPD type (CMS/HCC V24, CMS/HCC V28) Inhale 1 puff by mouth 1 (one) time each day. 1 each 11/19/19 25 025 Active umeclidinium-anai nteroL (Anoro Ellipta) 62.5-25 mcg/actuation inhaler Inhale 1 Puff into the lungs daily for 90 days. 3 inhalers and 3 refills 05/05/20 24 025 Discontin ued(Reord er) Active Problems Problem Noted Date Diagnosed Date Anemia, iron deficiency 09/02/2024 Anorexia 09/02/2024 Thoracic aorta atherosclerosis (CMS/HCC V24) 05/2025 Tortuous aorta ([facility]/HCC V24) 09/02/2024 Overview (09/02/2024): Thoracic Aorta Tortuous Squamous cell carcinoma in situ 09/02/2024 Lung disease, interstitial ([facility] V24, [facility] V28) 09/02/2024 Overview (09/02/2024): Right Upper Lung Constipation 09/02/2024 COPD (chronic obstructive pu lmonary disease) ([facility] V24, [facility] V28) 09/02/2024 Centrilobular emphysema ([facility] V24, [facility] V2 8) 09/02/2024 Coronary artery disease 09/02/2024 Dementia ([facility] V24, [facility] V28) 09/02/2024 Overview (09/02/2024): Dementia, Moderate without Behavior Changes DM (diabetes mellitus), type 2 ([facility] V24, [facility] V28) 09/02/2024 GERD with esophagitis 09/02/2024 Hiatal hernia 09/02/2024 Dysphagia 09/02/2024 Incontinence of urine 09/02/2024 Nocturia 09/02/2024 Hiccoughs 09/02/2024 Overview (09/02/2024): Hiccoughs, Recurrent Hyperlipidemia 09/02/2024 Hypertension 09/02/2024 Left thyroid nodule 09/02/2024 Onychauxis 09/02/2024 Callus 09/02/2024 Hammer toes of both feet 09/02/2024 Overview (09/02/2024): 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 09/02/2024 Other specified disorders of bone density and structure, multiple sites 09/02/2024 Overview (09/02/2024): DEXA: Z13.820, M85.89 Encounters Date Type Department Care Team Description 12/05/2024 12:00 PM EDT PACE Home Care / PACE Home Visit [facility] [address] [place] [phone] NurseCollette 12/01/2024 10:30 AM EDT [facility] [address] [place] [phone] Azul Cohen MD Chronic obstructive pulmonary disease, unspecified COPD type (CMS/HCC V24, CMS/HCC V28) (Primary Dx); Smoking history; Hx of solitary pulmonary nodule; Malignant neoplasm of right lung, unspecified part of lung (CMS/HCC V24, CMS/HCC V28); Primary hypertension 11/28/2024 12:00 PM EDT PACE Home Care / PACE Home [place] [facility] [place] [facility] [address] [place] [phone] Nurse, Collette 11/24/2024 12:00 PM EDT PACE Home Care / [facility] Home [place] [facility] [place] [facility] [address] [place] [phone] Nurse, Collette 11/14/2024 12:00 PM EDT PACE Home Care / PACE Home Visit [facility] [place] [facility] [address] [place] [phone] Nurse, Collette 11/10/2024 12:00 PM EDT PACE Home Care / PACE Home Visit [facility] [place] [facility] [address] [place] [phone] Nurse, Collette 11/07/2024 12:00 PM EDT PACE Home Care / P[facility] Home Visit [facility] [place] [facility] [address] [place] [phone] Nurse, Collette 11/03/2024 12:00 PM EDT PACE Home Care / [facility] Home Visit [facility] [place] [facility] [address] [place] [phone] Nurse, Collette 10/31/2024 12:00 PM EDT PACE Home Care / PACE Home Visit [facility] [place] [facility] [address] [place] [phone] Nurse, Collette 10/27/2024 12:00 PM EST PACE Home Care / PACE Home [place] [facility] [place] [facility] [address] [place] [address] NurseCollette 10/10/2024 [place] [facility] [place] [facility] [address] [place] [address] Wandy Rivera, SECTION CREWS ACTIVITIES CLERK Hammer toe, unspecified laterality from Last 3 Months Immunizations Name Administration Dates Next Due Influenza, Unspecified 07/29/2024 Moderna SARS-CoV-2 COVID-19, mRNA, LNP-S, preservative free 07/29/2024 Pneumococcal conjugate 13 va lent (Prevnar 13, PCV13) 2mo and older 01/29/2016 Pneumococcal polysaccharide 23 valent (Pneumovax 23) 2yo and older 11/04/2011 Surgical History Surgery Date Site/Laterality Comments KIDNEY STONE SURGERY Medical History Medical History Date Comments Diabetes mellitus ([facility] V24, [facility] V28) Hypertension Anemia Dementia ([facility] V24, [facility] V28) H/O recurrent pneumonia H/O prostate cancer Hyponatremia History of smoking Wears dentures Social History Tobacco Use Types Packs/Day Years Used Date Smoking Tobacco: Former Cigarettes Smokeless Tobacco: Never Tobacco Cessation:Counseling Given: Not Answered Comments:Stopped smoking in 1999. Used alcohol socially until Jun Alcohol Use Standard Drinks/Week Comments Not Currently 0 (1 standard drink = 0.6 oz pur e alcohol) Sex and Gender Information Value Date Recorded Sex Assigned at Male 07/05/2024 8:54 AM EST Legal Sex Male 3:41 PM EDT Gender Identity Male 07/05/2024 8:54 AM EST Sexual Orientation Straight 07/05/2024 8: 54 AM EST Obstetrics History Last Filed Vital Signs Vital Sign Reading Time Taken Comments Blood Pressure 165/73 12/01/2024 10:38 AM EDT Pulse 70 12/01/2024 10:38 AM EDT Temperature 36.1 ??C (97 ??F) 12/01/2024 10:38 AM EDT Respiratory Rate 16 12/01/2024 10:38 AM EDT Oxygen Saturation 97% 12/01/2024 10:38 AM EDT Inhaled Oxygen Concentration - - Weight 75.8 kg (167 lb 3.4 oz) 12/01/2024 10:38 AM EDT Height 170.2 cm (5' 7 ) 12/01/2024 10:38 AM EDT Body Mass Index 26.19 12/01/2024 10:38 AM EDT Plan of Treatment Upcoming Encounters Date Type Department Care Team (Latest Contact Info) Description 12/07/2024 9:00 AM EDT [facility] [place] [facility] [place] [facility] [address] [place] [address] 12/08/2024 12:00 PM EDT PACE Home Care / [place] [facility] [place] [facility] [address] [place] [phone] Nurse, Collette 12/09/2024 9:00 AM EDT [facility] [place] [facility] [place] [facility] [address] [place] [phone] 12/12/2024 12:00 PM EDT PACE Home Care / [facility] Home [place] [facility] [place] [facility] [address] [place] [phone] Nurse, Collette 12/14/2024 9:00 AM EDT [place] [facility] [place] [facility] [address] [place] [phone] 12/15/2024 12:00 PM EDT PACE Home Care / PACE Home Visit [facility] [place] [facility] [address] [place] [phone] Nurse, Collette 12/16/2024 9:00 AM EDT PACE Attendance/Day Center [facility] [address] [place] [phone] 12/16/2024 10:30 AM EDT Appointment [facility] Scan [address] [place] [address] 12/19/2024 12:00 PM EDT PACE Home Care / PACE Home Visit [facility] [address] [place] [phone] Nurse, Collette 12/21/2024 9:00 AM EDT [place] [facility] [place] [facility] [address] [place] [address] 12/22/2024 12:00 PM EDT PACE Home Care / P[facility] Home [place] [facility] [place] [facility] [address] [place] [phone] Nurse, Collette 12/23/2024 9:00 AM EDT [place] [facility] [place] [facility] [address] [place] [phone] 12/26/2024 12:00 PM EDT PACE Home Care / [place] Home [place] [facility] [place] [facility] [address] [place] [phone] Nurse, Collette 12/28/2024 9:00 AM EDT [place] [facility] [place] [facility] [address] [place] [phone] 12/29/2024 12:00 PM EDT PACE Home Care / [place] [facility] [place] [facility] [address] [place] [phone] Nurse, Collette 12/30/2024 [place] [facility] [place] [facility] [address] [place] [phone] Wandy Rivera, OTIS [address] [address] Hammer toe, unspecified laterality 12/30/2024 9:00 AM EDT [facility] [place] [facility] [place] [facility] [address] [place] [phone] 01/02/2025 12:00 PM EDT PACE Home Care / [facility] Home [place] [facility] [place] [facility] [address] [place] [phone] Nurse, Collette 01/04/2025 9:00 AM EDT [facility] [place] [facility] [place] [facility] [address] [place] [address] 01/05/2025 12:00 PM EDT PACE Home Care / [facility] Home [place] [facility] [place] [facility] [address] [place] [phone] Nurse, Collette 01/06/2025 9:00 AM EDT [facility] [place] [facility] [place] [facility] [address] [place] [address] 01/09/2025 12:00 PM EDT PACE Home Care / [facility] Home [place] [facility] [place] [facility] [address] [place] [phone] Nurse, Collette 01/11/2025 9:00 AM EDT [place] [facility] [place] [facility] [address] [place] [phone] 01/12/2025 12:00 PM EDT PACE Home Care / [place] Home [place] [facility] [place] [facility] [address] [place] [phone] Nurse, Collette 01/13/2025 9:00 AM EDT [place] [facility] [place] [facility] [address] [place] [phone] 01/16/2025 12:00 PM EDT PACE Home Care / [facility] Home [place] [facility] [place] [facility] [address] [place] [phone] Nurse, Collette 01/18/2025 9:00 AM EDT [place] [facility] [place] [facility] [address] [place] [phone] 01/19/2025 12:00 PM EDT PACE Home Care / [facility] Home Visit [facility] [place] [facility] [address] [place] [phone] Nurse, Collette 01/20/2025 9:00 AM EDT [facility] [facility] [place] [facility] [address] [place] [address] 01/23/2025 12:00 PM EDT PACE Home Care / [facility] Home [place] [facility] [place] [facility] [address] [place] [address] Nurse, Collette 01/23/2025 1:15 PM EDT Office Visit [facility] Hematology Oncology [address] [place] [address] Rene Kurtz MD [address] [place] [address] 01/25/2025 9:00 AM EDT [facility] Att[facility] [facility] [place] [facility] [address] [place] [address] 01/26/2025 12:00 PM EDT PACE Home Care / [facility] Home Visit [facility] [place] [facility] [address] [place] [address] Nurse, Collette 01/27/2025 9:00 AM EDT [facility] [place] [facility] [place] [facility] [address] [place] [phone] 02/01/2025 9:00 AM EDT [facility] Att[facility] [facility] [place] [facility] [address] [place] [address] 02/03/2025 9:00 AM EDT [place] [facility] [place] [facility] [address] [place] [phone] 02/08/2025 9:00 AM EDT [facility] [facility] [place] [facility] [address] [place] [address] 02/10/2025 9:00 AM EDT [facility] [facility] [place] [facility] [address] [place] [phone] 02/15/2025 9:00 AM EDT [facility] [facility] [place] [facility] [address] [place] [address] 02/17/2025 9:00 AM EDT [place] [facility] [place] [facility] [address] [place] [address] 02/22/2025 9:00 AM EDT [place] [facility] [place] [facility] [address] [place] [address] 02/24/2025 9:00 AM EDT [place] [facility] [place] [facility] [address] [place] [phone] 03/01/2025 9:00 AM EDT [place] [facility] [place] [facility] [address] [place] [phone] 03/03/2025 9:00 AM EDT [facility] [facility] [place] [facility] [address] [place] [phone] 03/08/2025 9:00 AM EDT [facility] [facility] [place] [facility] [address] [place] [phone] 03/10/2025 9:00 AM EDT [facility] [facility] [place] [facility] [address] [place] [phone] 03/15/2025 9:00 AM EDT [facility] [facility] [place] [facility] [address] [place] [address] 03/17/2025 9:00 AM EDT [facility] [facility] [place] [facility] [address] [place] [address] 03/22/2025 9:00 AM EDT [facility] [facility] [place] [facility] [address] [place] [phone] 03/24/2025 9:00 AM EDT [facility] [facility] [place] [facility] [address] [place] [address] 03/29/2025 9:00 AM EDT [facility] [facility] [place] [facility] [address] [place] [address] 03/31/2025 9:00 AM EDT [facility] [facility] [place] [facility] [address] [place] [address] 04/05/2025 9:00 AM EDT [facility] [facility] [place] [facility] [address] [place] [phone] 04/07/2025 9:00 AM EDT [facility] [facility] [place] [facility] [address] [place] [phone] 04/12/2025 9:00 AM EDT [facility] [facility] [place] [facility] [address] [place] [phone] 04/14/2025 9:00 AM EDT [facility] [facility] [place] [facility] [address] [place] [phone] 04/19/2025 9:00 AM EDT [facility] [place] [facility] [address] [place] [phone] 04/21/2025 9:00 AM EDT [facility] [place] [facility] [address] [place] [address] 04/26/2025 9:00 AM EDT [facility] [place] [facility] [address] [place] [address] 04/28/2025 9:00 AM EDT [facility] [facility] [place] [facility] [address] [place] [phone] 05/03/2025 9:00 AM EDT [facility] [place] [facility] [place] [facility] [address] [place] [address] 05/05/2025 9:00 AM EDT [facility] [facility] [place] [facility] [address] [place] [address] 05/10/2025 9:00 AM EDT [facility] [facility] [place] [facility] [address] [place] [address] 2025 9:00 AM EDT [facility] [facility] [place] [facility] [address] [place] [phone] 05/17/2025 9:00 AM EDT [facility] [facility] [place] [facility] [address] [place] [phone] 05/19/2025 9:00 AM EDT [facility] [facility] [place] [facility] [address] [place] [phone] 05/24/2025 9:00 AM EDT [facility] [facility] [place] [facility] [address] [place] [phone] 05/26/2025 9:00 AM EDT [facility] [facility] [place] [facility] [address] [place] [phone] 05/31/2025 9:00 AM EDT [facility] [facility] [place] [facility] [address] [place] [address] 06/02/2025 9:00 AM EDT [facility] [facility] [place] [facility] [address] [place] [address] 06/07/2025 9:00 AM EDT [facility] [facility] [place] [facility] [address] [place] [phone] 06/09/2025 9:00 AM EDT [facility] [facility] [place] [facility] [address] [place] [address] 06/14/2025 9:00 AM EDT P[facility] [place] [facility] [address] [place] [phone] 06/16/2025 9:00 AM EDT P[facility] [place] [facility] [address] [place] [phone] 06/21/2025 9:00 AM EDT PACE Att[facility] [place] [facility] [address] [place] [phone] 06/23/2025 9:00 AM EDT PACE Attendance[facility] [place] [facility] [address] [address] 06/27/2025 10:30 AM EST Office Visit [facility] [address] [facility] [address] [place] [phone] Azul Cohen MD [address] [address] 06/28/2025 9:00 AM EST P[facility] [facility] [address] [phone] 06/30/2025 9:00 AM EST [facility] [place] [facility] [address] [place] [phone] 07/05/2025 9:00 AM EST [facility] [place] [facility] [address] [place] [phone] 07/07/2025 9:00 AM EST [facility] [place] [facility] [address] [place] [phone] 07/12/2025 9:00 AM EST P[facility] [place] [facility] [address] [place] [phone] 07/14/2025 9:00 AM EST [facility] [place] [facility] [address] [place] [phone] 07/19/2025 9:00 AM EST [facility] [place] [facility] [address] [place] [phone] 07/21/2025 9:00 AM EST [facility] [place] [facility] [address] [place] [phone] 07/26/2025 9:00 AM EST [facility] [place] [facility] [address] [place] [phone] 07/28/2025 9:00 AM EST [facility] [place] [facility] [address] [place] [phone] 08/02/2025 9:00 AM EST [facility] [place] [facility] [address] [place] [phone] 08/04/2025 9:00 AM EST [facility] [place] [facility] [address] [place] [phone] 08/09/2025 9:00 AM EST [facility] [place] [facility] [address] [place] [phone] 08/11/2025 9:00 AM EST [facility] [facility] [place] [facility] [address] [place] [phone] 08/16/2025 9:00 AM EST [facility] [facility] [place] [facility] [address] [place] [phone] 08/18/2025 9:00 AM EST [facility] [facility] [place] [facility] [address] [place] [phone] 08/23/2025 9:00 AM EST [facility] [place] [facility] [address] [place] [address] 08/25/2025 9:00 AM EST [facility] [place] [facility] [address] [place] [address] 08/30/2025 9:00 AM EST [facility] [facility] [place] [facility] [address] [place] [address] 09/01/2025 9:00 AM EST [facility] [facility] [place] [facility] [address] [place] [phone] 09/06/2025 9:00 AM EST [facility] [place] [facility] [address] [place] [phone] 09/08/2025 9:00 AM EST [facility] [place] [facility] [address] [place] [phone] 09/13/2025 9:00 AM EST [facility] [facility] [place] [facility] [address] [place] [phone] 09/15/2025 9:00 AM EST [facility] [facility] [place] [facility] [address] [place] [phone] 09/20/2025 9:00 AM EST [facility] [place] [facility] [address] [place] [phone] 09/22/2025 9:00 AM EST [facility] [facility] [place] [facility] [address] [place] [phone] 09/27/2025 9:00 AM EST [facility] [facility] [place] [facility] [address] [place] [phone] 09/29/2025 9:00 AM EST PACE Attendance/Day Center [facility] [address] [place] [address] 10/04/2025 9:00 AM EST [facility] [place] [facility] [place] [address] [place] [address] Health Maintenance Due Date Last Done Comments Diabetes: Annual Foot Exam 1956 Diabetes: Annual Retina Eye Exam 1956 Zoster Vaccines (1 of 2) 1965 RSV Immunization Adult Patients (1 - 1-dose 75+ series) 2021 Depression Screening 06/01/2024 Falls Risk Assessment 06/01/2024 Hepatitis C Screening 06/01/2024 Social Influencers of Health Screening 06/01/2024 Diabetes: Annual Urine Albumin-Creatinine Ratio (uACR) 06/27/2024 Diabetes: Blood Sugar Control Test (HGBA1C) 07/30/2024 01/29/2024 COVID-19 Vaccine ( season) 2024 07/29/2024, 07/02/2022, 08/02/2021, Additional history exists Diabetes: Annual GFR (Glomerular Filtration Rate) 05/18/2025 05/18/2024, 05/05/2024, 05/05/2024, Additional history exists Hypertension/CHF/CAD Annual BMP Blood Test 05/18/2025 05/18/2024, 05/05/2024, 05/05/2024, Additional history exists Cholesterol Screening (Lipid Panel) 01/28/2029 01/29/2024 DTaP,Tdap,and Td Vaccines (3 - Td or Tdap) 09/26/2031 09/26/2021, 11/04/2011 Pneumococcal Vaccine: 50+ Years Completed 01/29/2016, 11/04/2011 Influenza Vaccine Completed 07/29/2024, , 08/27/2023 HIB Vaccines Aged Out No longer eligi ble based on patient's age to complete this topic HPV Vaccines Aged Out No longer eligi ble based on patient's age to complete this topic Hepatitis A Vaccines Aged Out No long er eligible based on patient's age to complete this topic Hepatitis B Vaccines Aged Out No long er eligible based on patient's age to complete this topic IPV Vaccines Aged Out No longer eligi ble based on patient's age to complete this topic MMR Vaccines Aged Out No longer eligi ble based on patient's age to complete this topic Meningococcal ACWY Vaccine Aged Out N o longer eligible based on patient's age to complete this topic Meningococcal B Vaccine Aged Out No l onger eligible based on patient's age to complete this topic RSV Immunization Patients Under 20 months Aged Out No longer eligible based on patient's age to complete this topic Varicella Vaccines Aged Out No longer eligible based on patient's age to complete this topic Procedures Procedure Name Priority Date/Time Associated Diagnosis Comments ANNUAL BMP BLOOD TEST Routine 05/18/2024 HEMOGLOBIN A1C Routine 01/29/2024 LIPID PANEL Routine 01/29/2024 from Last 3 Months or Most Recently Relevant to Health Maintenance Results * Annual BMP Blood Test (05/18/2024) Pathologist [facility] Annual BMP Blood Test Abstracted Result [facility] Provider HEALTH MAINTENANCE Final Result * (ABNORMAL) Hemoglobin A1c (01/29/2024) Pathologist [facility] Hemoglobin A1C 7.1(A) <=5.7 % Blood Venous blood specimen / Unknown Result [facility] Provider LAB BLOOD ORDERABLES Ana l Result * Lipid panel (01/29/2024) Pathologist [facility] LDL/HDL Ratio 3 <=5 Triglycerides 86 <=150 mg/dL Cholesterol 157 <=200 mg/dL HDL 55 >=40 mg/dL LDL Cholesterol 84 <=100 mg/dL Blood Venous blood specimen / Unknown Result [facility] Provider LAB BLOOD ORDERABLES Ana l Result from Last 3 Months or Most Recently Relevant to Health Maintenance Insurance [employer] * Guarantor: [employer] Account Type Relation to Patient Date of Phone Billing Address YENNIFER DE OLIVEIRA [phone] [place] [address] [employer] Advance Directives Documents on File Type Date Recorded 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 Do not modify or discontinue any currently active code status orders. Care Teams Supervising Law Enforcement Analyst Relationship Specialty Start Date End Date Wandy Rivera NP [address] [place] [id number] PCP - General Family Medicine 06/14/24
--- OUTSIDE RECORDS SUMMARY | 2024-12-06 08:34 | XMS_ITS | Encounter Summary ---
Author Organization [facility] Address [address] [place] [address] Care Team Providers Care Lamps Tester And Inspector Name Role Phone Wandy Rivera NP Primary Care Provider [phone] Reason for Referral * Consultation (Routine) - Pending Review Specialty Diagnoses / Procedures Referred By Graciela song Referred To Contact Internal Medicine Diagnoses Primary hypertension Azul Cohen MD [address] [address] Phone: tel: fax: Referral ID Status Reason Start Date Expiration Date Visits Requested Visits Authorized [id number] Pending Review Specialty Services Required 12/01/2024 12/01/2025 1 1 Reason for Visit * Reason Comments Follow-up * Consultation (Routine) - Closed Specialty Diagnoses / Procedures Referred By Graciela song Referred To Contact Pulmonary Disease Diagnoses Smoking history Hx of solitary pulmonary nodule Wandy Rivera NP [address] [address] Phone: tel: fax: [facility] - Pulmonology [address] Phone: tel: Referral ID Status Reason Start Date Expiration Date V isits Requested Visits Authorized [id number] Closed Consult and Treat 10/07/2024 10/07/2025 1 1 Encounter Details Date Type Department Care Team ([facility] st Contact Info) Description 12/01/2024 10:30 AM EDT Office Visit Pulmonolgy - [place] 175 [facility] 200 [place] [phone] Azul Cohen MD [address] [address] Chronic obstructive pulmonary disease, unspecified COPD type (CMS/HCC V24, CMS/HCC V28) (Primary Dx); Smoking history; Hx of solitary pulmonary nodule; Malignant neoplasm of right lung, unspecified part of lung (CMS/HCC V24, CMS/HCC V28); Primary hypertension Social History Tobacco Use Types Packs/Day Years [...] Orientation Straight 07/05/2024 8: 54 AM EST documented as of this encounter Last Filed Vital Signs Vital Sign Reading [...] Mass Index 26.19 12/01/2024 10:38 AM EDT documented in this encounter Progress Notes * Azul Cohen MD - 12/01/2024 10:30 AM EDT ADULT PULMONARY Followup CHIEF COMPLAINT or REASON FOR CONSULTATION: Follow-up Last seen 07/14/2024 HISTORY OF PRESENT ILLNESS: Accompanied by & niece Mckenna Marroquin is a 79 y.o. old, ex smoker @ 56 ppy, Male h/o mild dementia, COPD, latent TB (w/o treatment-details unknown), recurrent pneumonias, lung nodule, CT chest abnormality, hyponatremia HTN(off med now diet control), HLD, diabetes mellitus, GERD, anemia, prostate cancer. In the past patient was followed by Dr. Eliud Sloan, major donor coordinator at [facility]. No available record from [facility]. Per family, June 2023, hospitalized at [facility] due to syncope related to pneumonia. Patient was d/c to SNF after 1 to 2 weeksafter return to hospital in acute respiratory failure and shock due to pneumonia and gastroenteritits, requiring pressor and intubation. At discharge was told chest Abnormality need followup chest CTand possible bronchoscopy. Patient went to urgent care recently, CXR and told abnormality persisted. Family does not know the details, but due to change in insurance and unilateral shelter, patient had not seen by major donor coordinator for over a year. Currently care been transfer to [facility]. Record from previous provider is still not available. His Dementia requiring certified dental assistant w/ ADLs. Patient has been noticing increasing shortness of breath and dyspnea on exertion. Chest CT, 06/06/2024 [facility], show RUL irregular solid nodule 1.5 cm, emphysema, calcified periphery/plaque, and no pleural effusion or infiltrate or pneumothorax. Mediastinal area show left thyroid 3.8 x 2.1 thyroid nodule. QuantiFERON TB serology positive on 05/05/2024 COVID vaccinations: Pfizer & Moderna Ex Smoker: age teens to 54, 1.5 pack a day, @ 56 ppy. 2nd hand smoke exposure. 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 Moderate chemical and fume exposure. No TB exposure or abestosis exposure. Born [place] age 33. Pets: None. FH: No known FH of lung disease or cancer Since last seen: -PET scan 07/26/2024 RUL SUV max 7.3, RLL SUV max 7, right hilar SUV max 3, right perihilar 1.9 SUV max, left paratracheal 1.8 SUV max, and paraesophageal 2.6 SUV max. -Patient was seen by oncologist Dr. Kurtz 08/09/2024, per dictated note, it appears that family and patient decided to continue with observation and no aggressive diagnostic intervention while away from December 2024 CT chest. - Not been hospitalized: REVIEW OF SYSTEMS: Review of Systems Constitutional: Negative for chills, decreased appetite, diaphoresis, fever, malaise/fatigue and night sweats. HENT: Negative for congestion. Cardiovascular: Negative for chest pain, dyspnea on exertion, irregular heartbeat and leg swelling. Respiratory: Negative for cough, hemoptysis, shortness of breath, snoring, sputum production and wheezing. Endocrine: Negative for cold intolerance and heat intolerance. Skin: Negative for rash. Gastrointestinal: Negative for abdominal pain, constipation, diarrhea and dysphagia. Genitourinary: Negative for dysuria. ALLERGIES: No Known Allergies ACTIVE MEDICATIONS: Outpatient Medications Marked as Taking for the 12/01/24 encounter (Office Visit) with Azul Cohen MD Medication Sig Dispense Refill acetaminophen (TYLENOL) 325 mg tablet Take 2 Tablets by mouth every 6 hours as needed. albuterol HFA (PROAIR HFA ; PROVENTIL HFA ; VENTOLIN HFA) 90 mcg/actuation inhaler Inhale 2 Puffs into the lungs every 4 hours as needed. amLODIPine-atorvastatin (CADUET) 10-40 mg per tablet Take 1 Tablet by mouth daily. baclofen (LIORESAL) 10 mg tablet Take by mouth 3 (three) times a day. cyanocobalamin (VITAMIN B-12) 100 mcg tablet Take 0.5 Tablets by mouth daily. famotidine (PEPCID) 40 mg tablet Take 1 Tablet by mouth daily. ferrous sulfate 325 mg (65 mg elemental iron) tablet 1 tab by mouth every other day glipiZIDE (GLUCOTROL) 5 mg tablet Take 1 Tablet by mouth 2 times daily (before meals). glucose blood test strip 1 Strip by In Vitro route as needed. lactose-reduced food (ENSURE [employer] ORAL) Take 1 Bottle by mouth 3 times daily. memantine (NAMENDA) 10 mg tablet Take 1 tablet (10 mg total) by mouth 2 (two) times a day. memantine (NAMENDA) 5 mg tablet Take 1 Tablet by mouth 2 times daily. multivit-min/iron/folic acid/K (ADULTS MULTIVITAMIN ORAL) Take 1 Tablet by mouth daily. omeprazole (PriLOSEC) [address] capsule Take 1 Capsule by mouth daily. sodium chloride 1 gram tablet 1 tab by mouth 1 to 2 times per day prn electrolyte replenishment solifenacin (VESICARE) 5 mg tablet Take 2 tablets (10 mg total) by mouth 1 (one) time each day. umeclidinium-vilanteroL (Anoro Ellipta) 62.5-25 mcg/actuation inhaler Inhale 1 puff by mouth 1 (one) time each day. 1 each 11 PROVIDER ATTESTS THAT THE MEDICATION LIST WAS OBTAINED, REVIEWED AND UPDATED. PAST MEDICAL HISTORY: Patient Active Problem List Diagnosis Date Noted Anemia, iron deficiency 09/02/2024 Anorexia 09/02/2024 Thoracic aorta atherosclerosis ([facility] V24) 09/02/2024 Tortuous aorta ([facility] V24) 09/02/2024 Squamous cell carcinoma in situ 09/02/2024 Lung disease, interstitial ([facility] V24, [facility] V28) 09/02/2024 Constipation 09/02/2024 COPD (chronic obstructive pulmonary disease) ([facility] V24, [facility] V28) 09/02/2024 Centrilobular emphysema ([facility] V24, [facility] V28) 09/02/2024 Coronary artery disease 09/02/2024 Dementia ([facility] V24, [facility] V28) 09/02/2024 DM (diabetes mellitus), type 2 ([facility] V24, [facility] V28) 09/02/2024 GERD with esophagitis 09/02/2024 Hiatal hernia 09/02/2024 Dysphagia 09/02/2024 Incontinence of urine 09/02/2024 Nocturia 09/02/2024 Hiccoughs 09/02/2024 Hyperlipidemia 09/02/2024 Hypertension 09/02/2024 Left thyroid nodule 09/02/2024 Onychauxis 09/02/2024 Callus 09/02/2024 Hammer toes of both feet 09/02/2024 Positive QuantiFERON-TB Gold test 09/02/2024 Other specified disorders of bone density and structure, multiple sites 09/02/2024 Past Surgical History: Procedure Laterality Date KIDNEY STONE SURGERY Past Surgical History: Procedure Laterality Date KIDNEY STONE SURGERY FAMILY HISTORY: No family history on file. SOCIAL HISTORY Social History Socioeconomic History Marital status: Spouse name: Not on file Number of children: Not on file Years of education: Not on file Highest education level: Not on file Occupational History Not on file Tobacco Use Smoking status: Former Types: Cigarettes Smokeless tobacco: Never Tobacco comments: Stopped smoking in 1999. Used alcohol socially until Jun Substance and Sexual Activity Alcohol use: Not Currently Drug use: Not on file Sexual activity: Not on file Other Topics Concern Not on file Social History Narrative Not on file IMMUNIZATION: Immunization History Administered Date(s) Administered Influenza, Unspecified 07/29/2024 Moderna (age 6mo & older) Bivalent, COVID-19, 0.5 mL or 0.25 mL dosage 07/02/2022 Moderna SARS-CoV-2 COVID-19, mRNA, LNP-S, preservative free 08/02/2021, 07/29/2024 Pfizer SARS-CoV-2 COVID-19, mRNA, LNP-S, preservative free 11/08/2020, 12/01/2020 Pneumococcal conjugate 13 valent (Prevnar 13, PCV13) 2mo and older 01/29/2016 Pneumococcal polysaccharide 23 valent (Pneumovax 23) 2yo and older 11/04/2011 PHYSICAL EXAM: Visit Vitals BP (!) 165/73 Pulse 70 Temp 36.1 ??C (97 ??F) (Temporal) Resp 16 Ht 1.702 m (67 ) Wt 75.8 kg (167 lb 3.4 oz) SpO2 97% BMI 26.19 kg/m?? Smoking Status Former BSA 1.87 m?? Physical Exam Constitutional: Comments: Frail, attentive but does not engage HENT: Head: Normocephalic and atraumatic. Nose: No congestion. Eyes: Pupils: Pupils are equal, round, and reactive to light. Cardiovascular: Rate and Rhythm: Normal rate and regular rhythm. Heart sounds: No murmur heard. Pulmonary: Effort: No respiratory distress. Breath sounds: No stridor. No wheezing, rhonchi or rales. Comments: Diminished BS Abdominal: General: Bowel sounds are normal. There is no distension. Palpations: Abdomen is soft. Tenderness: There is no abdominal tenderness. Musculoskeletal: Right lower leg: No edema. Left lower leg: No edema. Neurological: Mental Status: He is alert. Diagnostic: CURRENTS ICD-10 PULMONARY DIAGNOSIS 1. Chronic obstructive pulmonary disease, unspecified COPD type (CMS/HCC V24, CMS/HCC V28) 2. Smoking history 3. Hx of solitary pulmonary nodule 4. Malignant neoplasm of right lung, unspecified part of lung (CMS/HCC V24, CMS/HCC V28) 5. Primary hypertension ASSESSMENT/PLAN: 1. Chest CT abnormality, - Patient has been seen by oncology. Patient, , and niece accompanying patient does not wish toproceed with aggressive intervention nondiagnostic. Await for CT chest in December 2024. 2. H/o latent TB, confirmed by recent blood work of positive QuantiFERON-TB serology on 05/05/2024. 3. Incidental mediastinal thyroid abnormality found. - Awaiting for thyroid ultrasound biopsy. 4. COPD & ILD. -As above chest CT images were discussed with patient, , and niece. -Pathophysiology of COPD and ILD discussed. Treatment options of the various inhalers, along with techniques of use, and side effects were discussed. Maintenace of care of obstructive lung disease health such as various vaccinations, smoking cessation & avoidance of chemicals/fumes/inhalants were discussed. All questions were answered. -Continue current Anoro, 1 puff daily. -Continue current albuterol MDI every 6 as needed as needed. 5. Elevated BP. - Referral back to PCP. -Follow up with Wandy Rivera NP for the other co-morbilities. RETURN TO THE NEXT VISIT: Based on physical exam, symptomatology, tests requested and baseline pulmonary evaluation/disease, I instructed the patient to come back to see me in 6 months for reevaluation after the test has beendone or earlier if the patient needed. Thanks Wandy Rivera NP for allowing me to have the opportunity to assist in the care of this patient. This chart was generated by the [employer] system and [employer] speech recognition software and may contain inherent errors or omissions not intended by the user. Grammatical errors, random word insertions, deletions, pronoun errors and incomplete sentences are occasional consequences of this technologydue to software limitations. Not all errors are caught or corrected. If there are questions or concerns about the content of this note or information contained within the body of this dictation they should be addressed directly with the author for clarification. @ELECSIG@ documented in this encounter Plan of Treatment Upcoming Encounters Date Type Department Care Team (Latest Contact Info) Description 12/07/2024 9:00 AM EDT PACE Attendance/Day Center [facility] [place] [facility] [address] [place] [phone] 12/08/2024 12:00 PM EDT PACE Home Care / [facility] [place] [facility] [place] [facility] [address] [place] [phone] Nurse, [place] 12/09/2024 9:00 AM EDT [facility] [place] [facility] [address] [address] 12/12/2024 12:00 PM EDT PACE Home Care / PACE Home Visit [facility] [employer] [employer] [place] [facility] [address] [place] [phone] Nurse, Collette 12/14/2024 9:00 AM EDT [facility] [place] [employer] [facility] [address] [address] 12/15/2024 12:00 PM EDT PACE Home Care / PACE Home Visit [facility] [employer] [place] [facility] [address] [place] [phone] Nurse, Collette 12/16/2024 9:00 AM EDT PACE Attendance/Day Center [facility] [place] [facility] Day [address] [address] 12/16/2024 10:30 AM EDT Appointment [facility] CT Scan [address] [place] [address] 12/19/2024 12:00 PM EDT PACE Home Care / [place] [facility] [place] [facility] [address] [place] [address] Nurse, Collette 12/21/2024 9:00 AM EDT [facility] Attendance/[place] [facility] [place] [facility] [address] [place] [address] 12/22/2024 12:00 PM EDT PACE Home Care / [facility] Home [place] [facility] [place] [facility] [address] [place] [phone] Nurse, Collette 12/23/2024 9:00 AM EDT [facility] Attendance[facility] [facility] [place] [facility] [facility] [address] [place] [phone] 12/26/2024 12:00 PM EDT PACE Home Care / [place] [facility] [place] [facility] [address] [place] [phone] Nurse, Collette 12/28/2024 9:00 AM EDT [facility] Attendance[facility] [facility] [place] [facility] [address] [place] [phone] 12/29/2024 12:00 PM EDT PACE Home Care / [facility] [facility] [place] [facility] [address] [place] [phone] Nurse, Col[place] 12/30/2024 Lab [facility] [place] [facility] [address] [place] [address] Wandy Rivera NP [address] [address] [place], unspecified laterality 12/30/2024 9:00 AM EDT [facility] Attendance[facility] [facility] [place] [facility] [address] [place] [address] 01/02/2025 12:00 PM EDT PACE Home Care / [facility] [facility] [place] [facility] [address] [place] [address] Nurse, Collette 01/04/2025 9:00 AM EDT [facility] Attendance[facility] [facility] [place] [facility] [address] [place] [address] 01/05/2025 12:00 PM EDT PACE Home Care / [facility] [facility] [place] [facility] [address] [place] [address] Nurse, Col[place] 01/06/2025 9:00 AM EDT [place] Att[place] [facility] [place] [facility] [address] [place] [address] 01/09/2025 12:00 PM EDT PACE Home Care / [place] [facility] [place] [facility] [address] [place] [phone] Nurse, Collette 01/11/2025 9:00 AM EDT [facility] Attendance[facility] [facility] [place] [facility] [address] [place] [address] 01/12/2025 12:00 PM EDT PACE Home Care / [place] [facility] [place] [facility] [address] [place] [address] Nurse, Collette 01/13/2025 9:00 AM EDT [place] Att[place]ance[facility] [facility] [place] [facility] [address] [place] [address] 01/16/2025 12:00 PM EDT PACE Home Care / [place] [facility] [place] [facility] [address] [place] [phone] Nurse, Collette 01/18/2025 9:00 AM EDT [place] Attendance[facility] [facility] [place] [facility] [address] [place] [address] 01/19/2025 12:00 PM EDT PACE Home Care / PACE Home Visit [facility] [place] [facility] [address] [place] [address] Nurse, Collette 01/20/2025 9:00 AM EDT [place] Att[place] [facility] [place] [facility] [address] [place] [address] 01/23/2025 12:00 PM EDT PACE Home Care / [place] [facility] [place] [facility] [address] [place] [address] Nurse, Collette 01/23/2025 1:15 PM EDT Office Visit [facility] Hematology Oncology [address] [place] [address] Rene Kurtz MD [address] [place] [address] 01/25/2025 9:00 AM EDT [facility] Attendance[facility] [facility] [place] [facility] [address] [place] [phone] 01/26/2025 12:00 PM EDT PACE Home Care / [place] [facility] [place] [facility] [address] [place] [phone] Nurse, Collette 01/27/2025 9:00 AM EDT [facility] Att[place]ance[facility] [facility] [place] [facility] [address] [place] [phone] 02/01/2025 9:00 AM EDT [place] Att[place]ance[facility] [facility] [place] [facility] [address] [place] [phone] 02/03/2025 9:00 AM EDT [place] Att[place]ance[place] [facility] [place] [facility] [facility] [address] [place] [phone] 02/08/2025 9:00 AM EDT [place] Attendance[facility] [facility] [place] [facility] [facility] [address] [place] [phone] 02/10/2025 9:00 AM EDT [facility] [facility] [place] [facility] [address] [place] [address] 02/15/2025 9:00 AM EDT [facility] Attendance[facility] [facility] [place] [facility] [address] [place] [address] 02/17/2025 9:00 AM EDT [facility] [facility] [place] [facility] [address] [place] [address] 02/22/2025 9:00 AM EDT [facility] [facility] [place] [facility] [address] [place] [phone] 02/24/2025 9:00 AM EDT [facility] Attendance[facility] [facility] [place] [facility] [address] [place] [address] 03/01/2025 9:00 AM EDT [facility] [facility] [place] [facility] [address] [place] [phone] 03/03/2025 9:00 AM EDT [facility] [facility] [place] [facility] [address] [place] [phone] 03/08/2025 9:00 AM EDT [facility] [facility] [place] [facility] [address] [place] [phone] 03/10/2025 9:00 AM EDT [facility] [facility] [place] [facility] [address] [place] [phone] 03/15/2025 9:00 AM EDT [facility] [facility] [place] [facility] [address] [place] [phone] 03/17/2025 9:00 AM EDT [facility] [facility] [place] [facility] [address] [place] [phone] 03/22/2025 9:00 AM EDT [facility] [facility] [place] [facility] [address] [place] [address] 03/24/2025 9:00 AM EDT [facility] Att[facility] [facility] [place] [facility] [address] [place] [address] 03/29/2025 9:00 AM EDT [facility] Att[facility] [facility] [place] [facility] [address] [place] [address] 03/31/2025 9:00 AM EDT [facility] Attend[facility] [facility] [place] [facility] [address] [place] [address] 04/05/2025 9:00 AM EDT [facility] Att[facility] [facility] [place] [facility] [address] [place] [address] 04/07/2025 9:00 AM EDT [facility] Att[facility] [facility] [place] [facility] [address] [place] [phone] 04/12/2025 9:00 AM EDT [facility] [facility] [place] [facility] [address] [place] [phone] 04/14/2025 9:00 AM EDT [facility] [facility] [place] [facility] [address] [place] [phone] 04/19/2025 9:00 AM EDT [facility] [facility] [place] [facility] [address] [place] [address] 04/21/2025 9:00 AM EDT [facility] [facility] [place] [facility] [address] [place] [address] 04/26/2025 9:00 AM EDT [facility] [facility] [place] [facility] [address] [place] [address] 04/28/2025 9:00 AM EDT [facility] [facility] [place] [facility] [address] [place] [address] 05/03/2025 9:00 AM EDT P[facility] Attendance[facility] [facility] [place] [facility] [address] [place] [address] 05/05/2025 9:00 AM EDT [facility] Attendance[facility] [facility] [place] [facility] [address] [place] [address] 05/10/2025 9:00 AM EDT P[facility] Attendance/[place] [facility] [place] [facility] [address] [place] [address] 2025 9:00 AM EDT [facility] Attendance[facility] [facility] [place] [facility] [address] [place] [address] 05/17/2025 9:00 AM EDT P[facility] Attendance[facility] [facility] [place] [facility] [address] [place] [phone] 05/19/2025 9:00 AM EDT P[facility] Attendance[facility] [facility] [place] [facility] [address] [place] [phone] 05/24/2025 9:00 AM EDT P[facility] Attendance[facility] [facility] [place] [facility] [address] [place] [phone] 05/26/2025 9:00 AM EDT [facility] Attendance[facility] [facility] [place] [facility] [address] [place] [address] 05/31/2025 9:00 AM EDT [facility] [place] [facility] [address] [place] [address] 06/02/2025 9:00 AM EDT [facility] [facility] [place] [facility] [address] [place] [address] 06/07/2025 9:00 AM EDT [facility] [facility] [place] [facility] [address] [place] [phone] 06/09/2025 9:00 AM EDT [facility] [place] [facility] [address] [place] [phone] 06/14/2025 9:00 AM EDT [facility] [place] [facility] [address] [place] [phone] 06/16/2025 9:00 AM EDT [facility] [place] [facility] [address] [place] [phone] 06/21/2025 9:00 AM EDT [facility] [place] [facility] [address] [place] [phone] 06/23/2025 9:00 AM EDT [facility] [place] [address] [address] 06/27/2025 10:30 AM EST Office Visit [facility] [address] [phone] Azul Cohen MD [address] [address] 06/28/2025 9:00 AM EST [facility] [place] [facility] [address] [address] 06/30/2025 9:00 AM EST [facility] [place] [facility] [address] [place] [phone] 07/05/2025 9:00 AM EST [facility] Attend[facility] [place] [facility] [address] [place] [phone] 07/07/2025 9:00 AM EST P[facility] Attendance[facility] [place] [facility] [address] [place] [phone] 07/12/2025 9:00 AM EST PACE Attendance/[place] [facility] [place] [facility] [address] [place] [address] 07/14/2025 9:00 AM EST P[facility] Attendance/[place] [facility] [place] [facility] [address] [place] [address] 07/19/2025 9:00 AM EST P[facility] Attendance[facility] [facility] [place] [facility] [address] [place] [address] 07/21/2025 9:00 AM EST P[facility] Attendance[facility] [facility] [place] [facility] [address] [place] [phone] 07/26/2025 9:00 AM EST P[facility] Attend[facility] [place] [facility] [address] [place] [phone] 07/28/2025 9:00 AM EST P[facility] Attendance[facility] [facility] [place] [facility] [address] [place] [phone] 08/02/2025 9:00 AM EST P[facility] Attendance[place] [facility] [place] [facility] [address] [place] [phone] 08/04/2025 9:00 AM EST P[facility] Attendance[facility] [facility] [place] [facility] [address] [place] [phone] 08/09/2025 9:00 AM EST P[facility] Attend[facility] [facility] [place] [facility] [address] [place] [phone] 08/11/2025 9:00 AM EST P[facility] Attend[facility] [facility] [place] [facility] [address] [place] [phone] 08/16/2025 9:00 AM EST [facility] Att[facility] [facility] [place] [facility] [address] [place] [phone] 08/18/2025 9:00 AM EST [facility] [place] [facility] [address] [place] [address] 08/23/2025 9:00 AM EST P[facility] Attendance[facility] [facility] [place] [facility] [address] [place] [address] 08/25/2025 9:00 AM EST [facility] Attendance[facility] [facility] [place] [facility] [address] [place] [address] 08/30/2025 9:00 AM EST [facility] Attend[facility] [facility] [place] [facility] [address] [place] [phone] 09/01/2025 9:00 AM EST [facility] Attend[facility] [facility] [place] [facility] [address] [place] [phone] 09/06/2025 9:00 AM EST [facility] Attend[facility] [facility] [place] [facility] [address] [place] [phone] 09/08/2025 9:00 AM EST P[facility] Attendance[facility] [place] [facility] [place] [facility] [address] [place] [phone] 09/13/2025 9:00 AM EST P[facility] Attend[facility] [facility] [place] [facility] [address] [place] [phone] 09/15/2025 9:00 AM EST P[facility] Attend[facility] [facility] [place] [facility] [address] [place] [phone] 09/20/2025 9:00 AM EST P[facility] Attend[facility] [facility] [place] [facility] [address] [place] [phone] 09/22/2025 9:00 AM EST [facility] Att[facility] [facility] [place] [facility] [address] [place] [address] 09/27/2025 9:00 AM EST P[facility] Attendance[facility] [facility] [place] [facility] [address] [place] [address] 09/29/2025 9:00 AM EST PACE Attendance/Day Center [facility] [facility] [address] [place] [address] 10/04/2025 9:00 AM EST [facility] Att[facility] [facility] [address] [place] [phone] Scheduled Referrals Name Type Priority Associated Diagnoses Orde r Schedule Ambulatory referral to Internal Medicine Outpatient Referral Routine Primary hypertension 1 Occurrences starting 12/01/2024 until 12/01/2025 documented as of this encounter Visit Diagnoses Diagnosis Chronic obstructive pulmonary disease, unspecified COPD type (CMS/FORMERLY [facility] V24, CMS/HCC V28)- Primary Smoking history Hx of solitary pulmonary nodule Malignant neoplasm of right lung, unspecified part of lung (CMS/HCC V24, CMS/FORMERLY [facility] V28) Primary hypertension Unspecified essential hypertension Hammer toe, unspecified laterality documented in this encounter Orders Outpatient Referral Count Last Ordered Date Fir st Ordered Date AMB REFERRAL TO PULMONOLOGY 1 12/01/2024 documented in this encounter Care Teams Lamps Tester And Inspector Relationship Specialty Start Date End Date Wandy Rivera NP [address] [place] [id number] PCP - General Family Medicine 06/14/24 documented as of this encounter
--- OUTSIDE RECORDS SUMMARY | 2024-12-06 08:34 | XMS_ITS ---
Author Organization [facility] on Care Team Providers Care Data Processing Equipment Repairer Name Role Phone Ebony, November Unavailable Unavailabl Kadie Camacho Unavailable Unavailable Forest Fuentes Unavailable Unavailable Hernan Moss Unavailable Unavailable Michelle Estrella Unavailable Unavailable Allergies and adverse reactions No Known Allergies Care Team Name Role Address Phone Organization Dates Hernan Moss PCP [address] [place] [address] [address], [address], [place] (Office): : [facility] 08/11/2023 - 08/28/2023November Ebony Attending Physician [address] [place] [address], [address], [place] (Office): : [facility] 08/11/2023 - 08/28/2023 Kadie Prakash Attending Physician [address] [place] [address], [id number], [place] (Office): [facility] 08/11/2023 - 08/28/2023 Forest Fuentes Attending Physician [address] [place] [address], [address], [place] (Office): [facility] 08/11/2023 - 08/28/2023 Michelle Estrella Attending Physician [address] [facility] [address], [place], [address], [place] (Office): : [facility] 08/11/2023 - 08/28/2023 Immunizations Immunization Status Vaccine Details Vaccine Code CodeSystem Date Notes Influenza completed Influenza, split virus, trivalent, injectable, contains preservative lotNumber: [id number] expiry: 02/21/2024 Mfg: seqinus Given 0.1 ml Left Deltoid intramuscularly 141 CVX created date: 3 consent date: 4 administe red date: 4 Educated by Rosie Chow RN on 08/26/2023 Tetanus completed tetanus and diphtheria toxoids, adsorbed, preservative free, for adult use, Lf unspecified 196 CVX created date: 3 administe red date: 2 Verified in MIIS. Pneumococcal Conjugate Vaccine (PCV13) completed pneumococcal conjugate vaccine, 13 valent 133 CVX created date: 3 administe red date: 6 Verified in MIIS. Pneumococcal Polysaccharide Vaccine (PPSV23) completed pneumococcal polysaccharide vaccine, 23 valent 33 CVX created date: 3 administe red date: 2 Verified in MIIS. SARS-COV-2 (COVID-19) completed SARS-COV-2 (COVID-19) vaccine, mRNA, spike protein, LNP, preservative free, 30 mcg/0.3mL dose Mfg: pfizer Step 2 of Multi-step with next step required 208 CVX created date: 3 administe red date: 1 Verified in MIIS. SARS-COV-2 (COVID-19) completed SARS-COV-2 (COVID-19) vaccine, mRNA, spike protein, LNP, preservative free, 30 mcg/0.3mL dose Mfg: pfizer Step 1 of Multi-step with next step required 208 CVX created date: 3 administe red date: 1 Verified in MIIS. Prevnar 20 Pneumococcal conjugate (PCV20) cancelled Pneumococcal conjugate vaccine 20-valent (PCV20), polysaccharide [id number] conjugate, adjuvant, preservative free 216 CVX created date: 3 consent date: 3 SARS-COV-2 (COVID-19 BOOSTER) cancelled SARS-COV-2 (COVID-19) vaccine, mRNA, spike protein, LNP, preservative free, 50 mcg/0.5 mL dose 312 CVX created date: 3 consent date: 3 Educated by Rosie Chow RN on 08/14/2023 SARS-COV-2 (COVID-19 BOOSTER) completed SARS-COV-2 (COVID-19) vaccine, mRNA, spike protein, LNP, bivalent, preservative free, 50 mcg/0.5 mL or 25 mcg/0.25 mL dose Mfg: Moderna Bivalent Booster 229 CVX created date: 3 administe red date: 2 Verified in MIIS. SARS-COV-2 (COVID-19 BOOSTER) completed SARS-COV-2 (COVID-19) vaccine, mRNA, spike protein, LNP, preservative free, 100 mcg/0.5mL dose or 50 mcg/0.25mL dose Mfg: Moderna Booster #2 207 CVX created date: 3 administe red date: 1 Verified in MIIS. SARS-COV-2 (COVID-19 BOOSTER) completed SARS-COV-2 (COVID-19) vaccine, mRNA, spike protein, LNP, preservative free, 100 mcg/0.5mL dose or 50 mcg/0.25mL dose Mfg: Moderna Booster # 1 207 CVX created date: 3 administe red date: 1 Verified in MIIS. 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 BIMS 01 severe cognitiv e impairment CAM 2 Delirium indica sandra Problems Problem # Description Date of onset Resolved Date Code CodeSystem Concern Status 1 ENTEROCOLITIS DUE TO CLOSTRIDIUM DIFFICILE, NOT SPECIFIED RECURRENT 08/11/[address] active 2 RHABDOMYOLYSIS 08/11/[address] ac tive 3 SEVERE SEPSIS WITH SEPTIC SHOCK 08/11/[address] active 4 DELIRIUM DUE TO KNOWN PHYSIOLOGICAL CONDITION 07/24/[address] active 5 DYSPHAGIA, UNSPECIFIED 07/24/[address] active 6 ESOPHAGITIS, UNSPECIFIED WITHOUT BLEEDING 07/24/[address] active 7 ESSENTIAL (PRIMARY) HYPERTENSION 07/24/[address] active 8 HYPERLIPIDEMIA, UNSPECIFIED 07/24/[address] active 9 HYPO-OSMOLALITY AND HYPONATREMIA 07/24/[address] active 10 INTERSTITIAL PULMONARY DISEASE, UNSPECIFIED 07/24/[address] active 11 PERSONAL HISTORY OF MALIGNANT NEOPLASM OF PROSTATE 07/24/[address] active 12 PNEUMONIA, UNSPECIFIED ORGANISM 07/24/2023 08/11/[address] completed 13 RHABDOMYOLYSIS 07/24/2023 08/11/[address] completed 14 TYPE 2 DIABETES MELLITUS WITHOUT COMPLICATIONS 07/24/[address] active 15 UNSPECIFIED DEMENTIA, UNSPECIFIED SEVERITY, WITHOUT BEHAVIORAL DISTURBANCE, PSYCHOTIC DISTURBANCE, MOOD DISTURBANCE, AND ANXIETY 07/24/[address] active Reason for Referral No Reasons for Referral Entered Social History Social History Observation Description Start Date End Date Code Code System Current Smoking Status Tobacco smoking consumption unknown 024189977 SNOMED CT Sex Assigned At Male 1945 47686-6 [facility] Vital Signs Code Code System Vitals Name Values and Units Timing Information 2339-0 [facility] Blood Sugar Cfcxe=025.0 Units=mg/dL 08/28/2023 9279-1 [facility] Respiratory Rate Value=17.0 Units=/m in 08/28/2023 8462-4 [facility] Blood Pressure-Diastolic Value=53 Un its=mmHg 08/28/2023 8480-6 [facility] Blood Pressure-Systolic Eoacq=312 Un its=mmHg 08/28/2023 8310-5 [facility] Body Temperature Value=97.7 Units=?? F 08/28/2023 8867-4 [facility] Heart rate Value=72.0 Units=/min 12/2023 41985-4 [facility] O2 % BldC Oximetry Value=97.0 Units= % 08/28/2023 46224-3 [facility] Pain Level Value=0.0 08/28/2023 84680-6 [facility] Weight Qmkam=378.0 Units=Lbs 10/2023 8302-2 [facility] Height Value=72.0 Units=Inches 07/25/2023
--- OUTSIDE RECORDS SUMMARY | 2024-12-06 08:34 | XMS_ITS ---
Author Organization [address] [facility] Address [address] [place] [address] Phone Care Team Providers Care Software Quality Assurance Analyst Name Role Phone Wandy Rivera HEDGE FUND TRADER Primary Care Provider [phone] Program [facility] Status:Enrolled (Active) Start date:01/23/2024 Enrollment date:01/23/2024 Related social drivers of health:Housing Instability, Financial Risk, Transportation, Social Isolation, Food Risk Related service episodes:[facility] (Active) Overview This episode will track PACE documentation. Case Team Name Relationship Phone Wandy Rivera HEDGE FUND TRADER Nurse Practitioner [phone] Matilde Miranda Recreational Therapist Marybeth El RN Fisheries Biologist Huong Hammonds TRACTOR MECHANIC Body Technician/Painter Andres Muniz RD Dietitian Fang Salgado PT Physical Therapist Vineet Harding [facility] Storm Anaya LCSW Acute Care Clinical Nurse Specialist Nila Craig Acute Care Clinical Nurse Specialist Shyam Dorman Spiritual Care Cadence Moore OT Occupational Therapist Estephania Coleman RN Registered Nurse Tonya Ratliff MD Primary Care Provider [phone] Continued Care and Services Coordination
--- OUTSIDE RECORDS SUMMARY | 2024-12-06 08:34 | XMS_ITS | Encounter Summary ---
Author Organization [facility] Address [address] [place] [address] Care Team Providers Care Lens Generator Name Role Phone Wandy Rivera SHIELD INSTALLER Primary Care Provider [phone] Encounter Details Date Type Department Care Team (Late st Contact Info) Description 12/05/2024 12:00 PM EDT PACE Home Care / PACE Home Visit Kenyetta GUIDRY [place] [facility] [address] [place] [address] NurseCollette Social History Tobacco Use Types Packs/Day Years Used Date Smoking Tobacco: Former Cigarettes Smokeless Tobacco: Never Comments:Stopped smoking in 1999. Used alcohol socially [...] AM EST documented as of this encounter Plan of Treatment Upcoming Encounters Date Type Department Care Team (Latest Contact Info) Description 12/07/2024 9:00 AM EDT P[facility] Attendance[facility] [facility] [place] [facility] [address] [place] [address] 12/08/2024 12:00 PM EDT PACE Home Care / PACE Home Visit Kenyetta GUIDRY [place] [facility] [address] [place] [phone] Nurse, Collette 12/09/2024 9:00 AM EDT P[facility] Attendance[facility] [facility] [place] [facility] [address] [place] [phone] 12/12/2024 12:00 PM EDT PACE Home Care / PACE Home Visit Kenyetta GUIDRY [place] [facility] [address] [place] [phone] Nurse, Collette 12/14/2024 9:00 AM EDT [facility] Attendance[facility] [facility] [place] [facility] [address] [place] [phone] 12/15/2024 12:00 PM EDT PACE Home Care / PACE Home Visit Kenyetta GUIDRY [place] [facility] [address] [place] [phone] Nurse, Collette 12/16/2024 9:00 AM EDT P[facility] Attendance[facility] [facility] [place] [facility] [facility] [address] [place] [phone] 12/16/2024 10:30 AM EDT Appointment [facility] Scan [address] [place] [address] 12/19/2024 12:00 PM EDT PACE Home Care / PACE Home Visit Kenyetta GUIDRY [place] [facility] [address] [place] [phone] Nurse, Collette 12/21/2024 9:00 AM EDT PACE Attendance[facility] [facility] [place] [facility] [address] [place] [phone] 12/22/2024 12:00 PM EDT PACE Home Care / PACE Home Visit Kenyetta GUIDRY [place] [facility] [address] [place] [phone] Nurse, Collette 12/23/2024 9:00 AM EDT P[facility] Attendance[facility] [facility] [place] [facility] [address] [place] [address] 12/26/2024 12:00 PM EDT PACE Home Care / PACE Home Visit Kenyetta GUIDRY [place] [facility] [address] [place] [phone] Nurse, Collette 12/28/2024 9:00 AM EDT PACE Attendance[facility] [facility] [place] [facility] [address] [place] [phone] 12/29/2024 12:00 PM EDT PACE Home Care / PACE Home Visit Kenyetta GUIDRY [place] [facility] [address] [place] [phone] Nurse, Collette 12/30/2024 Lab [facility]UID[facility] [place] [facility] [address] [place] [phone] Wandy Rivera, OTIS [address] [place] [address] Liliaer toe, unspecified laterality 12/30/2024 9:00 AM EDT PACE Attendance[facility] [facility] [place] [facility] [address] [place] [phone] 01/02/2025 12:00 PM EDT PACE Home Care / PACE Home Visit Kenyetta GUIDRY [place] [facility] [address] [place] [phone] Nurse, Collette 01/04/2025 9:00 AM EDT PACE Attendance[facility] [facility] [place] [facility] [address] [place] [phone] 01/05/2025 12:00 PM EDT PACE Home Care / PACE Home Visit Kenyetta GUIDRY [place] [facility] [address] [place] [phone] Nurse, Collette 01/06/2025 9:00 AM EDT P[facility] Attendance[facility] [facility] [place] [facility] [facility] [address] [place] [address] 01/09/2025 12:00 PM EDT PACE Home Care / PACE Home Visit Kenyetta GUIDRY [place] [facility] [address] [place] [address] Nurse, Collette 01/11/2025 9:00 AM EDT P[facility] Attendance[facility] [facility] [place] [facility] [address] [place] [phone] 01/12/2025 12:00 PM EDT PACE Home Care / PACE Home Visit Kenyetta GUIDRY [place] [facility] [address] [place] [phone] Nurse, Collette 01/13/2025 9:00 AM EDT PACE Attendance/[place] [facility]UID[facility] [place] [facility] [address] [place] [phone] 01/16/2025 12:00 PM EDT PACE Home Care / PACE Home Visit Kenyetta GUIDRY [place] [facility] [address] [place] [phone] Nurse, Collette 01/18/2025 9:00 AM EDT PACE Attendance/Day [place] [facility] [place] [facility] [address] [place] [phone] 01/19/2025 12:00 PM EDT PACE Home Care / PACE Home Visit Kenyetta GUIDRY [place] [facility] [address] [place] [phone] Nurse, Collette 01/20/2025 9:00 AM EDT PACE Attendance[facility] [facility] [place] [facility] [address] [place] [phone] 01/23/2025 12:00 PM EDT PACE Home Care / PACE Home Visit Kenyetta GUIDRY [place] [facility] [address] [place] [phone] Nurse, Collette 01/23/2025 1:15 PM EDT Office Visit [facility] Hematology Oncology [address] [place] [address] Rene Kurtz MD [address] [place] [address] 01/25/2025 9:00 AM EDT [facility] [place] [facility] [address] [place] [address] 01/26/2025 12:00 PM EDT [facility] and A[facility] [address] [place] [address] NurseCollette 01/27/2025 9:00 AM EDT [facility] [place] [facility] [address] [place] [address] 02/01/2025 9:00 AM EDT [facility] [place] [facility] [address] [place] [phone] 02/03/2025 9:00 AM EDT [facility] [place] [facility] [address] [place] [phone] 02/08/2025 9:00 AM EDT [facility] [place] [facility] [address] [place] [address] 02/10/2025 9:00 AM EDT [facility] [place] [facility] [address] [place] [address] 02/15/2025 9:00 AM EDT [facility] [place] [facility] [address] [place] [address] 02/17/2025 9:00 AM EDT P[facility] Attendance/Day [place] [facility] [place] [facility] [facility] [address] [place] [address] 02/22/2025 9:00 AM EDT [facility] Attendance[facility] [place] [facility] [address] [place] [address] 02/24/2025 9:00 AM EDT PACE Attendance/[place] [facility] [place] [address] [place] [address] 03/01/2025 9:00 AM EDT P[facility] Attendance[facility] [facility] [place] [facility] [facility] [address] [place] [address] 03/03/2025 9:00 AM EDT P[facility] Attendance[facility] [facility] [place] [facility] [facility] [address] [place] [address] 03/08/2025 9:00 AM EDT P[facility] Attendance[facility] [facility] [place] [facility] [facility] [address] [place] [address] 03/10/2025 9:00 AM EDT P[facility] Attendance[facility] [facility] [place] [facility] [facility] [address] [place] [address] 03/15/2025 9:00 AM EDT P[facility] Attendance[facility] [facility] [place] [facility] [address] [place] [phone] 03/17/2025 9:00 AM EDT PACE Attendance[facility] [facility] [place] [facility] [address] [place] [phone] 03/22/2025 9:00 AM EDT P[facility] Attendance[facility] [facility] [place] [facility] [facility] [address] [place] [address] 03/24/2025 9:00 AM EDT [facility] [place] [facility] [address] [place] [address] 03/29/2025 9:00 AM EDT [facility] [place] [facility] [address] [place] [address] 03/31/2025 9:00 AM EDT [facility] Att[facility] [place] [facility] [address] [place] [address] 04/05/2025 9:00 AM EDT P[facility] Attendance[facility] [facility] [place] [facility] [facility] [address] [place] [address] 04/07/2025 9:00 AM EDT P[facility] Attendance[facility] [facility] [place] [facility] [facility] [address] [place] [address] 04/12/2025 9:00 AM EDT PACE Attendance[facility] [facility] [place] [facility] [address] [place] [phone] 04/14/2025 9:00 AM EDT P[facility] Attendance[facility] [facility] [place] [facility] [address] [place] [phone] 04/19/2025 9:00 AM EDT P[facility] Attendance[facility] [facility] [place] [facility] [address] [place] [address] 04/21/2025 9:00 AM EDT P[facility] Attendance[facility] [facility] [place] [facility] [address] [place] [phone] 04/26/2025 9:00 AM EDT P[facility] Attendance[facility] [facility] [place] [facility] [address] [place] [phone] 04/28/2025 9:00 AM EDT P[facility] Attendance/[place] [facility] [place] [facility] [address] [place] [phone] 05/03/2025 9:00 AM EDT PACE Attendance[facility] [facility] [place] [facility] [address] [place] [phone] 05/05/2025 9:00 AM EDT PACE Attendance/[place] [facility] [place] [facility] [address] [place] [phone] 05/10/2025 9:00 AM EDT [facility] Attendance[facility] [facility] [place] [facility] [address] [place] [address] 2025 9:00 AM EDT P[facility] Attendance[facility] [facility] [place] [facility] [address] [place] [phone] 05/17/2025 9:00 AM EDT P[facility] Attendance[facility] [facility] [place] [facility] [address] [place] [address] 05/19/2025 9:00 AM EDT P[facility] Attendance[facility] [place] [facility] [address] [place] [phone] 05/24/2025 9:00 AM EDT P[facility] Attendance[facility] [place] [facility] [address] [place] [phone] 05/26/2025 9:00 AM EDT PACE Attendance/[place] [facility] [place] [facility] [address] [place] [phone] 05/31/2025 9:00 AM EDT PACE Attendance/[place] [facility] [place] [facility] [address] [place] [address] 06/02/2025 9:00 AM EDT PACE Attendance[facility] [place] [facility] [address] [place] [phone] 06/07/2025 9:00 AM EDT PACE Attendance/Day [facility] [place] [facility] [address] [place] [phone] 06/09/2025 9:00 AM EDT [facility] [place] [facility] [address] [place] [phone] 06/14/2025 9:00 AM EDT [facility] [place] [facility] [address] [place] [phone] 06/16/2025 9:00 AM EDT [facility] [place] [facility] [address] [place] [address] 06/21/2025 9:00 AM EDT [facility] [place] [facility] [address] [place] [phone] 06/23/2025 9:00 AM EDT [facility] [place] [facility] [address] [place] [phone] 06/27/2025 10:30 AM EST Office Visit [facility] [address] [facility] [address] [place] [phone] Azul Cohen MD [address] [address] 06/28/2025 9:00 AM EST [facility] [place] [facility] [address] [place] [phone] 06/30/2025 9:00 AM EST [facility] [place] [facility] [address] [place] [address] 07/05/2025 9:00 AM EST [facility] [place] [facility] [address] [place] [phone] 07/07/2025 9:00 AM EST [facility] [place] [facility] [address] [place] [phone] 07/12/2025 9:00 AM EST [facility] [place] [facility] [address] [place] [address] 07/14/2025 9:00 AM EST [facility] [place] [facility] [address] [place] [phone] 07/19/2025 9:00 AM EST [facility] [place] [facility] [address] [place] [phone] 07/21/2025 9:00 AM EST [facility] Attend[facility] [place] [facility] [address] [place] [address] 07/26/2025 9:00 AM EST [facility] Att[facility] [place] [facility] [address] [place] [address] 07/28/2025 9:00 AM EST [facility] Att[facility] [place] [facility] [address] [place] [address] 08/02/2025 9:00 AM EST [facility] [place] [facility] [address] [place] [address] 08/04/2025 9:00 AM EST [facility] [place] [facility] [address] [place] [address] 08/09/2025 9:00 AM EST [facility] [place] [facility] [address] [place] [address] 08/11/2025 9:00 AM EST [facility] [place] [facility] [address] [place] [phone] 08/16/2025 9:00 AM EST [facility] [place] [facility] [address] [place] [phone] 08/18/2025 9:00 AM EST [facility] [place] [facility] [address] [place] [address] 08/23/2025 9:00 AM EST [facility] [place] [facility] [address] [place] [address] 08/25/2025 9:00 AM EST [facility] [place] [facility] [address] [place] [address] 08/30/2025 9:00 AM EST [facility] [place] [facility] [address] [place] [address] 09/01/2025 9:00 AM EST [facility] [place] [facility] [address] [place] [address] 09/06/2025 9:00 AM EST [facility] [place] [facility] [address] [place] [address] 09/08/2025 9:00 AM EST [facility] [place] [facility] [address] [place] [address] 09/13/2025 9:00 AM EST [facility] [place] [facility] [address] [place] [phone] 09/15/2025 9:00 AM EST [facility] [place] [facility] [address] [place] [phone] 09/20/2025 9:00 AM EST [facility] [place] [facility] [address] [place] [phone] 09/22/2025 9:00 AM EST [facility] [place] [facility] [address] [place] [phone] 09/27/2025 9:00 AM EST [facility] [place] [facility] [address] [place] [phone] 09/29/2025 9:00 AM EST [facility] [place] [facility] [address] [place] [phone] 10/04/2025 9:00 AM EST [facility] [place] [facility] [address] [place] [phone] documented as of this encounter Visit Diagnoses Not on filedocumented in this encounter Care Teams Lens Generator Relationship Specialty Start Date End Date Wandy Rivera NP [address] [address] PCP - General Family Medicine 06/14/24 documented as of this encounter
[2024-12-06 10:42] LABS: Prostate Specific Antigen 0.29 ng/mL (<0.05-4.0)
== END 2024-12-06 08:25 | disposition home or self-care (01) ==
LOC: HO.LAB 08:24
PROVIDERS: PCP Family Medicine; Visit Provider Urology
DX: C61 Malignant neoplasm of prostate (principal); Z12.5 Encounter for screening for malignant neoplasm of prostate
CPT/HCPCS: 36415; 84153

== ENCOUNTER 2024-12-15 09:49 | Outpatient (AMB) | payer OTHER, SELFPAY ==
--- NOTE | 2024-12-15 10:00 | MHC.OFFVIS ---
Intake Visit Reasons: 6m/PSA Intake Note: Patient is present for a 6month follow up/PSA Urology Med: Solifenacin Antibiotic Allergy: None Blood Thinner: None Project Engineering Manager Required: No Primary Mill Roller: Primary Mill Roller Present Accompanied by: Spouse Allergies No Known Allergies [No Known Allergies*] Allergy (Verified 12/15/24 10:11) HPI Comments Details: Aditya is very pleasant male. He is seen for the following urologic issues - prostate cancer - radiation cystitis Six-month follow-up PVR 20 cc PSA 0.29 Has dementia diagnosis accompanied by his On tropsium for bladder stability Discussion regarding results Continue current medication Radiation cystitis with urgency and frequency and background of diabetes Nocturia times 3-4 Does drink more than 6 glasses of water per day. 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 Urgency frequency during the day Prior medications include solifenacin Prostate cancer intermediate risk, radiation therapy July 2014 Minimal symptoms Effective bladder emptying No hematuria PSA historically ranges 0.4 to 0.9 PSA - 04/13 0.5, 04/14 0.66, 04/15 0.53 Reassurance provided Prior history of renal stones with ESWL Ultrasound 03/11 negative with renal cyst PFSH Medical History Dementia Radiation cystitis Memory deficit GERD (gastroesophageal reflux disease) Elevated cholesterol HTN (hypertension) Prostate cancer High cholesterol Diabetes mellitus, type II Surgical History History of right inguinal hernia repair (04/29/23) H/O lithotripsy History of surgery Family History Mother Diabetes Hypertension Father Smoker Social History Housing: House Patient Tobacco Use Status: Former Tobacco user e-Cigarette/Vaping Use: Never Used Current occupational status: retired Cognitive needs: No Hearing needs: No Vision needs: No Review of Systems Const Denies chills and Denies fever(s) Card Reports no additional complaints and Denies syncope Resp Denies cough GI Denies abdominal pain and Denies heartburn Reports as per HPI and Denies change in libido Neuro Denies syncope Psych Denies change in libido Endo Denies change in libido Physical Exam Const General: cooperative, healthy appearing, comfortable and no acute distress Orientation/consciousness: patient oriented x3 HEENT Face and sinus: Yes normal facial exam Mouth: moist mucous membranes Neck Neck: Yes normal visual inspection, Yes full ROM and Yes trachea midline Chest Chest palpation & inspection: normal inspection of the chest Resp Effort & Inspection: normal respiratory effort, able to speak in complete sentences and no respiratory distress GI Inspection: Yes normal to inspection Back/Spine/Pelvis Cervical Spine: normal cervical lordosis Thoracic/Lumbar Spine: thoracic and lumbar spine normal to inspection Skin General skin exam: no rashes or lesions noted Neuro General: patient oriented x3, gait normal, tone normal and moves all extremities Extrem General: Yes normal to inspection and Yes capillary refill normal Assessment & Plan Assessment & Plan (1) Radiation cystitis: Code(s): N30.40 - Irradiation cystitis without hematuria Category: Medical (2) Prostate cancer: Comment: s/p RTx 2013, f/u urology Dr. Frank 04/14 annual Code(s): C61 - Malignant neoplasm of prostate Category: Medical Plan Six-month follow-up tele Patient Instructions: This note is constructed using voice recognition software. While every effort has been made to ensure accuracy aircraft instrument tester errors may have been included. Imaging studies, laboratory and physical exam results were discussed and reviewed in detail. No major barriers to patient understanding were identified. An opportunity to ask questions regarding the treatment plan was provided. All questions were answered. The patient expressed understanding and agreement with the above treatment plan. The patient is aware they should contact our office by phone for worsening of their current condition or the appearance of new urologic symptoms. Compliance is encouraged with any medications and followup testing that is ordered. It is a privilege to participate in the urologic care of your patient. If you have any questions or concerns regarding treatment for the above conditions, or other urologic issues, please do not hesitate to contact me. The office telephone contact is [phone]. Sincerely, Dr Eddie Frank MD, [facility] - Urology Compassionate Specialist Care for the Genitourinary System Coding Level of Care Code Est Pt Level 3 (83616) Complex EM visit Add On G2211 Diagnoses Radiation cystitis N30.40 Prostate cancer C61
--- OUTSIDE RECORDS SUMMARY | 2024-12-15 10:59 | XMS_ITS ---
Author Organization 175 [facility] Address [address] [place] [address] Phone Care Team Providers Care Sales Appointment Coordinator Name Role Phone Wandy Rivera SUPERVISOR [address] Primary Care Provider [phone] Program of [facility]-In[facility] Care [facility] the Elderly Status:Enrolled (Active) Start date:01/23/2024 Enrollment date:01/23/2024 Related social drivers of health:Housing Instability, Financial Risk, Transportation, Social Isolation, Food Risk Related service episodes:[facility] Home Health Aide Services (Active) Overview This episode will track PACE documentation. Case Team Name Relationship Phone Wandy Rivera SUPERVIS[address] Nurse Practitioner [phone] Matilde Miranda Recreational Therapist Marybeth El RN Headline Writer Huong Hammonds [employer] PROFESSOR Baster Hand Andres Muniz RD Dietitian Fang Salgado PT Physical Therapist [facility] Ad Taker Storm Anaya LCSW Duck Bill Operator Nila Craig Duck Bill Operator Shyam Dorman Spiritual Care Cadence Moore OT Occupational Therapist Estephania Coleman RN Registered Nurse Tonya Ratliff MD Primary Care Provider [phone] Continued Care and Services Coordination
--- OUTSIDE RECORDS SUMMARY | 2024-12-15 10:59 | XMS_ITS ---
Author Organization 175 [facility] Address [address] [place] [address] Phone Care Team Providers Care Printed Circuit Board Assembler Name Role Phone Wandy Rivera SENIOR ANDROID SOFTWARE ENGINEER Primary Care Provider [phone] [facility] Status:Enrolled (Active) Start date:10/22/2024 Related program episode:Program of [facility]-Inclusive Care for the Elderly (Active) Case Team Name Relationship Phone Wandy Rivera SENIOR ANDROID SOFTWARE ENGINEER Nurse Practitioner(Responsibl e Staff) [phone] Continued Care and Services Coordination
--- OUTSIDE RECORDS SUMMARY | 2024-12-15 10:59 | XMS_ITS | Clinical Summary ---
Author Organization [facility], Address [address], [place] [address] Phone Care Team Providers Care Clipper Machine Operator Name Role Phone Enrico Monzon MD Primary [...] age to complete this topic Insurance Medicare [facility] Medicaid [place] Care Teams Clipper Machine Operator Relationship Specialty Start Date End Date Enrico Monzon MD [address] [place] [phone] PCP - General Family Medicine 08/28/20
--- OUTSIDE RECORDS SUMMARY | 2024-12-15 10:59 | XMS_ITS | Encounter Summary ---
Author Organization [facility] [place] [address] Care Team Providers Care Machine Wood Sander Name Role Phone Wandy Rivera DATA PROGRAMMER Primary Care Provider [phone] Encounter Details Date Type Department Care Team (Late st Contact Info) Description 12/12/2024 12:15 PM EDT PACE Home Care / PACE Home Visit [facility] [address] [place] [address] [phone] NurseCollette Social History Tobacco Use Types Packs/Day [...] Department Care Team (Latest Contact Info) Description 12/15/2024 12:00 PM EDT PACE Home Care / PACE Home Visit [facility] [address] [place] [address] Nurse, Collette 12/16/2024 9:00 AM EDT [facility] Attend[facility] [facility] [place] [facility] [address] [place] [address] 12/16/2024 10:30 AM EDT Appointment [facility] CT Scan [address] [place] [address] 12/19/2024 12:00 PM EDT PACE Home Care / PACE Home Visit [facility] [address] [place] [phone] Nurse, Collette 12/21/2024 9:00 AM EDT [facility] Attend[facility] [facility] [place] [facility] [address] [place] [phone] 12/22/2024 12:00 PM EDT PACE Home Care / P[facility] Home Visit [facility] [address] [place] [phone] Nurse, Collette 12/23/2024 9:00 AM EDT [facility] [facility] [place] [facility] [address] [place] [phone] 12/26/2024 12:00 PM EDT PACE Home Care / PACE Home Visit [facility] [address] [place] [phone] Nurse, Collette 12/28/2024 9:00 AM EDT [facility] [facility] [place] [facility] [address] [place] [address] 12/29/2024 12:00 PM EDT PACE Home Care / PACE Home Visit [facility] [address] [place] [phone] Nurse, Collette 12/30/2024 Lab [facility] [place] [facility] [address] [place] [address] Wandy Rivera NP [address] [address] Wilber toe, unspecified laterality 12/30/2024 9:00 AM EDT [facility] [facility] [place] [facility] [address] [place] [address] 01/02/2025 12:00 PM EDT PACE Home Care / [facility] Home Visit [facility] [address] [place] [phone] Nurse, Collette 01/04/2025 9:00 AM EDT [facility] [facility] [place] [facility] [address] [place] [phone] 01/05/2025 12:00 PM EDT PACE Home Care / [facility] Home Visit [facility] [address] [place] [phone] Nurse, Collette 01/06/2025 9:00 AM EDT [facility] Att[facility] [address] [place] [phone] 01/09/2025 12:00 PM EDT PACE Home Care / PACE Home Visit [facility] [address] [place] [phone] Nurse, Collette 01/11/2025 9:00 AM EDT [facility] Attend[facility] [address] [place] [phone] 01/12/2025 12:00 PM EDT PACE Home Care / [facility] Home [facility] [address] [place] [phone] Nurse, Collette 01/13/2025 9:00 AM EDT [facility] [facility] [place] [facility] [address] [place] [phone] 01/16/2025 12:00 PM EDT PACE Home Care / PACE Home Visit [facility] [address] [place] [address] Nurse, Collette 01/18/2025 9:00 AM EDT [facility] [facility] [place] [facility] [address] [place] [address] 01/19/2025 12:00 PM EDT PACE Home Care / [facility] Home Visit [facility] [address] [place] [phone] Nurse, Collette 01/20/2025 9:00 AM EDT [facility] [facility] [place] [facility] [address] [place] [phone] 01/23/2025 12:00 PM EDT PACE Home Care / P[facility] Home Visit [facility] [address] [place] [phone] Nurse, Collette 01/23/2025 1:15 PM EDT Office Visit [facility] Hematology Oncology [address] [place] [phone] Rene Kurtz MD [address] [place] [address] 01/25/2025 9:00 AM EDT [facility] [facility] [place] [facility] [address] [place] [phone] 01/26/2025 12:00 PM EDT PACE Home Care / PACE Home Visit [facility] [address] [place] [phone] NurseCollette 01/27/2025 9:00 AM EDT [facility] [facility] [place] [facility] [facility] [address] [place] [address] 02/01/2025 9:00 AM EDT [facility] [facility] [place] [facility] [address] [place] [phone] 02/03/2025 9:00 AM EDT [facility] [place] [facility] [address] [place] [address] 02/08/2025 9:00 AM EDT [facility] [facility] [place] [facility] [address] [place] [phone] 02/10/2025 9:00 AM EDT [facility] [place] [facility] [address] [place] [phone] 02/15/2025 9:00 AM EDT [facility] [facility] [place] [facility] [address] [place] [phone] 02/17/2025 9:00 AM EDT [facility] [place] [facility] [address] [place] [phone] 02/22/2025 9:00 AM EDT [facility] [place] [facility] [address] [place] [phone] 02/24/2025 9:00 AM EDT [facility] [place] [facility] [address] [place] [phone] 03/01/2025 9:00 AM EDT [facility] [place] [facility] [address] [place] [phone] 03/03/2025 9:00 AM EDT [facility] [place] [facility] [address] [place] [phone] 03/08/2025 9:00 AM EDT [facility] [place] [facility] [address] [place] [phone] 03/10/2025 9:00 AM EDT [facility] [place] [facility] [address] [place] [phone] 03/15/2025 9:00 AM EDT [facility] [place] [facility] [address] [place] [address] 03/17/2025 9:00 AM EDT [facility] [place] [facility] [address] [place] [address] 03/22/2025 9:00 AM EDT [facility] [place] [facility] [address] [place] [address] 03/24/2025 9:00 AM EDT [facility] [place] [facility] [address] [place] [phone] 03/29/2025 9:00 AM EDT [facility] [place] [facility] [address] [place] [phone] 03/31/2025 9:00 AM EDT [facility] [place] [facility] [address] [place] [phone] 04/05/2025 9:00 AM EDT [facility] [place] [facility] [address] [place] [phone] 04/07/2025 9:00 AM EDT [facility] [place] [facility] [address] [place] [phone] 04/12/2025 9:00 AM EDT [facility] [place] [facility] [address] [place] [address] 04/14/2025 9:00 AM EDT [facility] [place] [facility] [address] [place] [address] 04/19/2025 9:00 AM EDT [facility] [place] [facility] [address] [place] [phone] 04/21/2025 9:00 AM EDT [facility] [place] [facility] [address] [place] [address] 04/26/2025 9:00 AM EDT [facility] [place] [facility] [address] [place] [address] 04/28/2025 9:00 AM EDT [facility] [place] [facility] [address] [place] [address] 05/03/2025 9:00 AM EDT [facility] [place] [facility] [address] [place] [phone] 05/05/2025 9:00 AM EDT [facility] Att[facility] [facility] [place] [facility] [address] [place] [phone] 05/10/2025 9:00 AM EDT [facility] [place] [facility] [address] [place] [phone] 2025 9:00 AM EDT [facility] [place] [facility] [address] [place] [phone] 05/17/2025 9:00 AM EDT [facility] [place] [facility] [address] [place] [phone] 05/19/2025 9:00 AM EDT [facility] [place] [facility] [address] [place] [phone] 05/24/2025 9:00 AM EDT [facility] [place] [facility] [address] [place] [phone] 05/26/2025 9:00 AM EDT [facility] [place] [facility] [address] [place] [phone] 05/31/2025 9:00 AM EDT [facility] [place] [facility] [address] [place] [address] 06/02/2025 9:00 AM EDT [facility] [place] [facility] [address] [place] [phone] 06/07/2025 9:00 AM EDT [facility] [place] [facility] [address] [place] [phone] 06/09/2025 9:00 AM EDT [facility] [place] [facility] [address] [place] [phone] 06/14/2025 9:00 AM EDT [facility] [place] [facility] [address] [place] [phone] 06/16/2025 9:00 AM EDT [facility] [place] [facility] [address] [place] [phone] 06/21/2025 9:00 AM EDT [facility] [place] [facility] [address] [phone] 06/23/2025 9:00 AM EDT [facility] [place] [facility] [address] [phone] 06/27/2025 10:30 AM EST Office Visit [address] [phone] Azul Cohen MD [address] [address] 06/28/2025 9:00 AM EST [facility] [place] [facility] [address] [phone] 06/30/2025 9:00 AM EST [facility] [place] [facility] [address] [place] [address] 07/05/2025 9:00 AM EST [facility] [place] [facility] [address] [place] [address] 07/07/2025 9:00 AM EST [facility] [place] [facility] [address] [place] [phone] 07/12/2025 9:00 AM EST [facility] [place] [facility] [address] [place] [phone] 07/14/2025 9:00 AM EST [facility] [place] [facility] [address] [place] [phone] 07/19/2025 9:00 AM EST [facility] [place] [facility] [address] [place] [phone] 07/21/2025 9:00 AM EST [facility] Attend[facility] [place] [facility] [address] [place] [phone] 07/26/2025 9:00 AM EST [facility] [place] [facility] [address] [place] [phone] 07/28/2025 9:00 AM EST [facility] [place] [facility] [address] [place] [phone] 08/02/2025 9:00 AM EST [facility] [place] [facility] [address] [place] [phone] 08/04/2025 9:00 AM EST [facility] [place] [facility] [address] [place] [phone] 08/09/2025 9:00 AM EST [facility] [place] [facility] [address] [place] [phone] 08/11/2025 9:00 AM EST [facility] [place] [facility] [address] [place] [address] 08/16/2025 9:00 AM EST [facility] [place] [facility] [address] [place] [address] 08/18/2025 9:00 AM EST [facility] [place] [facility] [address] [place] [address] 08/23/2025 9:00 AM EST [facility] [place] [facility] [address] [place] [phone] 08/25/2025 9:00 AM EST [facility] [place] [facility] [address] [place] [phone] 08/30/2025 9:00 AM EST [facility] [place] [facility] [address] [place] [phone] 09/01/2025 9:00 AM EST [facility] [place] [facility] [address] [place] [phone] 09/06/2025 9:00 AM EST [facility] [place] [facility] [address] [place] [phone] 09/08/2025 9:00 AM EST [facility] [place] [facility] [address] [place] [address] 09/13/2025 9:00 AM EST [facility] [place] [facility] [address] [place] [address] 09/15/2025 9:00 AM EST [facility] [place] [facility] [address] [place] [address] 09/20/2025 9:00 AM EST [facility] Att[facility] [address] [place] [phone] 09/22/2025 9:00 AM EST [facility] [place] [facility] [address] [place] [phone] 09/27/2025 9:00 AM EST [facility] [place] [facility] [address] [place] [phone] 09/29/2025 9:00 AM EST [facility] [place] [facility] [address] [place] [phone] 10/04/2025 9:00 AM EST [facility] [place] [facility] [address] [place] [phone] documented as of this encounter Visit Diagnoses Not on filedocumented in this encounter Care Teams Machine Wood Sander Relationship Specialty Start Date End Date Wandy Rivera NP [address] [place] [id number] PCP - General Family Medicine 06/14/24 documented as of this encounter
--- OUTSIDE RECORDS SUMMARY | 2024-12-15 10:59 | XMS_ITS | Clinical Summary ---
Author Organization 175 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 09/02/2024 Lung disease, interstitial ([facility] V24, [facility] V28) 09/02/2024 Overview (09/02/2024): Right Upper Lung Constipation 09/02/2024 COPD (chronic obstructive pu lmonary disease) ([facility] V24, [facility] V28) 09/02/2024 Centrilobular emphysema ([facility] V24, [facility] V2 8) 09/02/2024 Coronary artery disease 09/02/2024 Dementia ([facility] V24, [facility] V28) 09/02/2024 Overview (09/02/2024): Dementia, Moderate without Behavior Changes DM (diabetes mellitus), type 2 ([facility] V24, [facility] V28) 09/02/2024 GERD with esophagitis 09/02/2024 Hiatal [...] Encounters Date Type Department Care Team Description 12/12/2024 12:15 PM EDT P[facility] Home Care / PACE Home Visit [facility] [address] [place] [phone] NurseCollette 12/08/2024 12:00 PM EDT P[facility] Home Care / [facility] Home Visit [facility] [place] [facility] [address] [place] [address] Nurse, Collette 12/05/2024 12:00 PM EDT P[facility] Home Care / [facility] Home Visit [facility] [place] [facility] [address] [place] [phone] Nurse, Collette 12/01/2024 10:30 AM EDT Office Visit Pulmonolgy - [address] [place] [phone] Azul Cohen MD Chronic obstructive pulmonary disease, unspecified COPD type (CMS/HCC V24, CMS/HCC V28) (Primary Dx); Smoking history; Hx of solitary pulmonary nodule; Malignant neoplasm of right lung, unspecified part of lung (CMS/HCC V24, CMS/HCC V28); Primary hypertension 11/28/2024 12:00 PM EDT P[facility] Home Care / [facility] Home Visit [facility] [address] [place] [phone] Nurse, Collette 11/24/2024 12:00 PM EDT P[facility] Home Care / P[facility] Home Visit [facility] [place] [facility] [address] [place] [phone] Nurse, Collette 11/14/2024 12:00 PM EDT P[facility] Home Care / P[facility] Home Visit [facility] [place] [facility] [address] [place] [phone] Nurse, Collette 11/10/2024 12:00 PM EDT P[facility] Home Care / [facility] Home Visit [facility] [address] [place] [phone] Nurse, Collette 11/07/2024 12:00 PM EDT P[facility] Home Care / [facility] Home Visit [facility] [place] [facility] [address] [place] [phone] Nurse, Collette 11/03/2024 12:00 PM EDT PACE Home Care / [facility] Home Visit [facility] [place] [facility] [address] [place] [address] Nurse, Collette 10/31/2024 12:00 PM EDT P[facility] Home Care / [facility] Home Visit [facility] [place] [facility] [address] [place] [address] Nurse, Collette 10/27/2024 12:00 PM EST P[facility] Home Care / P[facility] Home Visit [facility] [place] [facility] [address] [place] [address] Nurse, Col[place] 10/10/2024 [facility] [place] [facility] [address] [place] [address] Wandy Rivera, OUTSIDE FOOD SERVER Hammer toe, unspecified laterality from Last 3 [...] History Medical History Date Comments Diabetes mellitus ([facility] V24, [facility] V28) Hypertension Anemia Dementia ([facility] V24, [facility] V28) H/O recurrent pneumonia H/O prostate cancer [...] [facility] [address] [place] [phone] Nurse, Collette 12/16/2024 9:00 AM EDT [facility] Att[facility] [facility] [place] [facility] [address] [place] [address] 12/16/2024 10:30 AM EDT Appointment [facility] Scan [address] [place] [address] 12/19/2024 12:00 PM EDT P[facility] Home Care / PACE Home Visit [facility] [address] [place] [phone] Nurse, Collette 12/21/2024 9:00 AM EDT [facility] Attend[facility] [facility] [place] [address] [place] [address] 12/22/2024 12:00 PM EDT PACE Home Care / PACE Home Visit [facility] [address] [place] [phone] Nurse, [place] 12/23/2024 9:00 AM EDT [facility] [facility] [place] [facility] [address] [place] [address] 12/26/2024 12:00 PM EDT P[facility] Home Care / [facility] Home Visit [facility] [place] [facility] [address] [place] [phone] Nurse, Collette 12/28/2024 9:00 AM EDT [facility] [facility] [place] [facility] [address] [place] [phone] 12/29/2024 12:00 PM EDT P[facility] Home Care / [facility] Home Visit [facility] [place] [facility] [address] [place] [phone] Nurse, Collette 12/30/2024 [facility] [place] [facility] [address] [place] [phone] Wandy Rivera NP [address] [place] [address] Hammer toe, unspecified laterality 12/30/2024 9:00 AM EDT [facility] [facility] [place] [facility] [address] [place] [phone] 01/02/2025 12:00 PM EDT P[facility] Home Care / [facility] Home Visit [facility] [place] [facility] [address] [place] [phone] Nurse, Collette 01/04/2025 9:00 AM EDT [facility] [facility] [place] [facility] [address] [place] [phone] 01/05/2025 12:00 PM EDT P[facility] Home Care / [facility] Home [facility] [place] [facility] [address] [place] [phone] Nurse, Collette 01/06/2025 9:00 AM EDT [facility] [facility] [place] [facility] [address] [place] [phone] 01/09/2025 12:00 PM EDT P[facility] Home Care / [facility] Home Visit [facility] [address] [place] [phone] Nurse, Collette 01/11/2025 9:00 AM EDT [facility] [facility] [place] [facility] [address] [place] [address] 01/12/2025 12:00 PM EDT [facility] Home Care / [facility] Home [facility] [place] [facility] [address] [place] [phone] Nurse, Collette 01/13/2025 9:00 AM EDT [facility] [facility] [place] [facility] [address] [place] [phone] 01/16/2025 12:00 PM EDT P[facility] Home Care / [facility] Home Visit [facility] [place] [facility] [address] [place] [phone] Nurse, Collette 01/18/2025 9:00 AM EDT [facility] [facility] [place] [facility] [address] [place] [phone] 01/19/2025 12:00 PM EDT P[facility] Home Care / [facility] Home Visit [facility] [place] [facility] [address] [place] [phone] Nurse, Collette 01/20/2025 9:00 AM EDT [facility] [facility] [place] [facility] [address] [place] [phone] 01/23/2025 12:00 PM EDT P[facility] Home Care / [facility] Home Visit [facility] [place] [facility] [address] [place] [phone] Nurse, Collette 01/23/2025 1:15 PM EDT Office Visit [facility] Hematology Oncology [address] [place] [phone] Rene Kurtz MD [address] [place] [address] 01/25/2025 9:00 AM EDT [facility] [facility] [place] [facility] [address] [place] [phone] 01/26/2025 12:00 PM EDT P[facility] Home Care / [facility] Home Visit [facility] [place] [facility] [address] [place] [phone] Nurse, Col[place] 01/27/2025 9:00 AM EDT [facility] Att[facility] [facility] [place] [facility] [address] [place] [phone] 02/01/2025 9:00 AM EDT [facility] Att[facility] [address] [place] [phone] 02/03/2025 9:00 AM EDT [facility] [place] [facility] [address] [place] [phone] 02/08/2025 9:00 AM EDT [facility] [place] [facility] [address] [place] [phone] 02/10/2025 9:00 AM EDT [facility] [place] [facility] [address] [place] [phone] 02/15/2025 9:00 AM EDT [facility] [place] [facility] [address] [place] [phone] 02/17/2025 9:00 AM EDT [facility] [place] [facility] [address] [place] [phone] 02/22/2025 9:00 AM EDT [facility] [place] [facility] [address] [place] [phone] 02/24/2025 9:00 AM EDT [facility] [facility] [place] [facility] [address] [place] [address] 03/01/2025 9:00 AM EDT [facility] [place] [facility] [address] [place] [address] 03/03/2025 9:00 AM EDT [facility] [facility] [place] [facility] [address] [place] [address] 03/08/2025 9:00 AM EDT [facility] [place] [facility] [address] [place] [phone] 03/10/2025 9:00 AM EDT [facility] [place] [facility] [address] [place] [phone] 03/15/2025 9:00 AM EDT [facility] [place] [facility] [address] [place] [phone] 03/17/2025 9:00 AM EDT [facility] [place] [facility] [address] [place] [phone] 03/22/2025 9:00 AM EDT [facility] [place] [facility] [address] [place] [phone] 03/24/2025 9:00 AM EDT [facility] [place] [facility] [address] [place] [address] 03/29/2025 9:00 AM EDT [facility] [place] [facility] [address] [place] [address] 03/31/2025 9:00 AM EDT [facility] [place] [facility] [address] [place] [phone] 04/05/2025 9:00 AM EDT [facility] [place] [facility] [address] [place] [address] 04/07/2025 9:00 AM EDT [facility] [place] [facility] [address] [place] [address] 04/12/2025 9:00 AM EDT [facility] [place] [facility] [address] [place] [address] 04/14/2025 9:00 AM EDT [facility] [place] [facility] [address] [place] [address] 04/19/2025 9:00 AM EDT [facility] [place] [facility] [address] [place] [address] 04/21/2025 9:00 AM EDT [facility] [place] [facility] [address] [place] [phone] 04/26/2025 9:00 AM EDT [facility] [place] [facility] [address] [place] [phone] 04/28/2025 9:00 AM EDT [facility] [place] [facility] [address] [place] [phone] 05/03/2025 9:00 AM EDT [facility] [place] [facility] [address] [place] [address] 05/05/2025 9:00 AM EDT [facility] [place] [facility] [address] [place] [address] 05/10/2025 9:00 AM EDT [facility] [place] [facility] [address] [place] [phone] 2025 9:00 AM EDT [facility] [place] [facility] [address] [place] [address] 05/17/2025 9:00 AM EDT [facility] [facility] [place] [facility] [address] [place] [address] 05/19/2025 9:00 AM EDT [facility] [place] [facility] [address] [place] [address] 05/24/2025 9:00 AM EDT [facility] [place] [facility] [address] [place] [phone] 05/26/2025 9:00 AM EDT [facility] [place] [facility] [address] [place] [phone] 05/31/2025 9:00 AM EDT [facility] [place] [facility] [address] [place] [phone] 06/02/2025 9:00 AM EDT [facility] [place] [facility] [address] [place] [phone] 06/07/2025 9:00 AM EDT [facility] [place] [facility] [address] [place] [phone] 06/09/2025 9:00 AM EDT [facility] [place] [facility] [address] [place] [address] 06/14/2025 9:00 AM EDT [facility] [place] [facility] [address] [place] [address] 06/16/2025 9:00 AM EDT [facility] [place] [facility] [address] [place] [phone] 06/21/2025 9:00 AM EDT [facility] [place] [facility] [address] [place] [phone] 06/23/2025 9:00 AM EDT [facility] [place] [facility] [address] [place] [phone] 06/27/2025 10:30 AM EST Office Visit [facility] [address] [place] [phone] Azul Cohen MD [address] [address] 06/28/2025 9:00 AM EST [facility] [place] [facility] [address] [place] [phone] 06/30/2025 9:00 AM EST [facility] [place] [facility] [address] [place] [address] 07/05/2025 9:00 AM EST [facility] [place] [facility] [address] [place] [phone] 07/07/2025 9:00 AM EST [facility] [place] [facility] [address] [place] [phone] 07/12/2025 9:00 AM EST [facility] [place] [facility] [address] [place] [phone] 07/14/2025 9:00 AM EST [facility] [place] [facility] [address] [place] [phone] 07/19/2025 9:00 AM EST [facility] [place] [facility] [address] [place] [phone] 07/21/2025 9:00 AM EST [facility] [place] [facility] [address] [place] [phone] 07/26/2025 9:00 AM EST [facility] [place] [facility] [address] [place] [address] 07/28/2025 9:00 AM EST [facility] [place] [facility] [address] [place] [address] 08/02/2025 9:00 AM EST [facility] [place] [facility] [address] [place] [address] 08/04/2025 9:00 AM EST [facility] [place] [facility] [address] [place] [address] 08/09/2025 9:00 AM EST [facility] [place] [facility] [address] [place] [phone] 08/11/2025 9:00 AM EST [facility] [place] [facility] [address] [place] [phone] 08/16/2025 9:00 AM EST [facility] [place] [facility] [address] [place] [phone] 08/18/2025 9:00 AM EST [facility] [place] [facility] [address] [place] [address] 08/23/2025 9:00 AM EST [facility] [place] [facility] [address] [place] [address] 08/25/2025 9:00 AM EST [facility] [place] [facility] [address] [place] [address] 08/30/2025 9:00 AM EST [facility] [place] [facility] [address] [place] [phone] 09/01/2025 9:00 AM EST [facility] [place] [facility] [address] [place] [address] 09/06/2025 9:00 AM EST [facility] [place] [facility] [address] [place] [phone] 09/08/2025 9:00 AM EST [facility] [place] [facility] [address] [place] [address] 09/13/2025 9:00 AM EST [facility] [place] [facility] [address] [place] [address] 09/15/2025 9:00 AM EST [facility] [place] [facility] [address] [place] [address] 09/20/2025 9:00 AM EST [facility] [place] [facility] [address] [place] [address] 09/22/2025 9:00 AM EST [facility] [place] [facility] [address] [place] [address] 09/27/2025 9:00 AM EST [facility] [place] [facility] [address] [place] [phone] 09/29/2025 9:00 AM EST [facility] [place] [facility] [address] [place] [phone] 10/04/2025 9:00 AM EST [facility] [place] [facility] [address] [place] [phone] Health Maintenance Due Date Last Done Comments [...] Procedure Name Priority Date/Time Associated Diagnosis Comments HM ANNUAL BMP BLOOD TEST Routine 05/18/2024 HEMOGLOBIN A1C Routine 01/29/2024 LIPID PANEL Routine 01/29/2024 from Last 3 Months or Most Recently Relevant to Health Maintenance Results * Annual BMP Blood Test (05/18/2024) Annual BMP Blood Test Abstracted [facility] Provider MD HEALTH MAINTENANCE Final Result * (ABNORMAL) Hemoglobin A1c (01/29/2024) Pathologist [facility] Hemoglobin A1C 7.1(A) <=5.7 % Blood Venous blood specimen / Unknown [facility] Provider LAB BLOOD ORDERABLES Ana l Result * Lipid panel (01/29/2024) Pathologist [facility] LDL/HDL Ratio 3 <=5 Triglycerides 86 <=150 mg/dL Cholesterol 157 <=200 mg/dL HDL 55 >=40 mg/dL LDL Cholesterol 84 <=100 mg/dL Blood Venous blood specimen / Unknown [facility] Provider LAB BLOOD ORDERABLES Ana l Result from Last 3 Months or Most Recently Relevant to Health Maintenance Insurance [address] [address] CLAIMS ADJUDICATION [facility] [id number] * Guarantor: [facility] Account Type Relation to Patient Date of Phone Billing Address [place] [id number] [facility] Advance Directives Documents on File Type Date Recorded Patient Freight Coordinator Expl anation Advance Directives and Living Will 09/02/2024 1:10 PM ADV DIR: Power of Bottle Feeder, dual - health care and financial * [...] currently active code status orders. Care Teams Special Deputy Sheriff Relationship Specialty Start Date End Date Wandy Rivera NP [address] [place] [id number] PCP - General Family Medicine 06/14/24
== END 2024-12-15 10:21 | disposition home or self-care (01) ==
PROVIDERS: PCP Family Medicine; Visit Provider Urology
DX: N30.40 Irradiation cystitis without hematuria (principal); C61 Malignant neoplasm of prostate
CPT/HCPCS: 99213; G2211

== ENCOUNTER → 2024-12-15 09:49 | Outpatient (BNVA) | payer OTHER, SELFPAY | PROVIDERS: PCP Family Medicine; Visit Provider Urology | DX: C61 Malignant neoplasm of prostate (principal); N30.40 Irradiation cystitis without hematuria | CPT/HCPCS: 99212 ==

== ENCOUNTER 2025-07-19 10:05 | Outpatient (AMB) | payer OTHER, SELFPAY ==
--- OUTSIDE RECORDS SUMMARY | 2025-07-13 09:00 | XMS_ITS | Encounter Summary ---
Author Organization [facility] Address [address] [place] [address] Care Team Providers Care Product Management Intern Name Role Phone Wandy Rivera SAND CUTTING MACHINE OPERATOR Primary Care Provider [phone] Encounter Details Date Type Department Care Team (Late Contact Info) Description 07/13/2025 9:00 AM EST PACE Home Care / PACE Home Visit [facility] [address] [place] [address] NurseCollette Social History Tobacco Use [...] Upcoming Encounters Date Type Department Care Team (Late st Contact Info) Description 07/21/2025 9:00 AM EST PACE Attendance[place] [facility] [place] [facility] [address] [place] [address] 07/24/2025 9:00 AM EST PACE Attendance/[facility] [place] [facility] [address] [place] [address] 07/25/2025 10:30 AM EST P[facility] Clinic [address] [place] [address] Wandy Rivera NP [address] [address] 07/25/2025 1:15 PM EST Office Visit [facility] Hematology Oncology [address] [place] [address] Rene Kurtz MD [address] [place] [address] 07/26/2025 9:00 AM EST PACE Att[place] [facility] [place] [address] [place] [address] 07/27/2025 12:00 PM EST PACE Home Care / [place] [facility] [place] [facility] [address] [place] [address] Collette Villarreal 07/28/2025 9:00 AM EST PACE Att[place] [facility] [place] [address] [place] [address] 07/31/2025 9:00 AM EST P[facility] [place] [facility] [address] [place] [address] 08/01/2025 12:30 PM EST PACE Home Care / [facility] [place] [facility] [address] [place] [address] Collette Villarreal 08/02/2025 9:00 AM EST [place] Att[place] [facility] [place] [facility] [address] [place] [address] 08/03/2025 12:00 PM EST PACE Home Care / [place] [facility] [place] [facility] [address] [place] [address] NurseCollette 08/04/2025 9:00 AM EST [place] Att[place] [facility] [place] [facility] [address] [place] [address] 08/07/2025 9:00 AM EST [place] [facility] [place] [address] [place] [phone] 08/08/2025 12:30 PM EST PACE Home Care / [place] [facility] [place] [facility] [address] [place] [phone] Nurse, Collette 08/09/2025 9:00 AM EST [place] [facility] [place] [address] [place] [address] 08/10/2025 12:00 PM EST PACE Home Care / [place] [facility] [place] [facility] [address] [place] [phone] NurseCollette 08/11/2025 9:00 AM EST PACE [place] [facility] [place] [facility] [address] [place] [phone] 08/14/2025 9:00 AM EST [place] [facility] [place] [facility] [address] [place] [address] 08/15/2025 12:30 PM EST PACE Home Care / [place] [facility] [place] [facility] [address] [place] [phone] NurseCollette 08/16/2025 9:00 AM EST [place] [facility] [place] [address] [place] [phone] 08/17/2025 12:00 PM EST PACE Home Care / [place] [facility] [place] [facility] [address] [place] [address] Nurse, Collette 08/18/2025 9:00 AM EST [place] [facility] [place] [address] [place] [address] 08/21/2025 9:00 AM EST [place] [facility] [place] [address] [place] [address] 08/22/2025 12:30 PM EST PACE Home Care / [place] [facility] [place] [facility] [address] [place] [phone] Nurse, Collette 08/23/2025 9:00 AM EST P[place] [facility] [place] [address] [place] [phone] 08/24/2025 12:00 PM EST PACE Home Care / [place] [facility] [place] [facility] [address] [place] [phone] Nurse, Collette 08/25/2025 9:00 AM EST [place] [facility] [place] [address] [place] [address] 08/28/2025 9:00 AM EST [place] [facility] [place] [address] [place] [address] 08/29/2025 12:30 PM EST PACE Home Care / [place] [facility] [place] [facility] [address] [place] [phone] Nurse, Collette 08/30/2025 9:00 AM EST [place] [facility] [place] [address] [place] [address] 08/31/2025 12:00 PM EST PACE Home Care / [place] [facility] [place] [facility] [address] [place] [address] Nurse, Collette 09/01/2025 9:00 AM EST [place] [facility] [place] [address] [place] [address] 09/04/2025 9:00 AM EST [place] [facility] [place] [address] [place] [address] 09/05/2025 12:30 PM EST PACE Home Care / [place] [facility] [place] [facility] [address] [place] [address] Nurse, Collette 09/06/2025 9:00 AM EST [place] [facility] [place] [address] [place] [address] 09/07/2025 12:00 PM EST PACE Home Care / [place] [facility] [place] [facility] [address] [place] [address] Nurse, Collette 09/08/2025 9:00 AM EST [place] [facility] [place] [address] [place] [address] 09/11/2025 9:00 AM EST [place] [facility] [place] [address] [place] [address] 09/12/2025 12:30 PM EST PACE Home Care / [place] [facility] [place] [facility] [address] [place] [address] Nurse, Collette 09/13/2025 9:00 AM EST [place] [facility] [place] [address] [place] [address] 09/14/2025 12:00 PM EST PACE Home Care / [place] [facility] [place] [facility] [address] [place] [address] NurseCollette 09/15/2025 9:00 AM EST PACE Attendance/[facility] [place] [facility] [address] [place] [address] 09/18/2025 9:00 AM EST [place] Att[place] [facility] [place] [facility] [address] [place] [address] 09/20/2025 9:00 AM EST P[place] [facility] [place] [facility] [address] [place] [address] 09/22/2025 9:00 AM EST [place] [facility] [place] [address] [place] [address] 09/25/2025 9:00 AM EST [place] [facility] [place] [address] [place] [phone] 09/27/2025 9:00 AM EST [place] [facility] [place] [address] [place] [phone] 09/29/2025 9:00 AM EST [place] [facility] [place] [address] [place] [phone] 10/02/2025 9:00 AM EST PACE Att[place] [facility] [place] [facility] [address] [place] [phone] 10/04/2025 9:00 AM EST P[place] [facility] [place] [facility] [address] [place] [address] 10/09/2025 9:00 AM EST [place] [facility] [place] [facility] [address] [place] [address] 10/16/2025 9:00 AM EST [place] Att[place] [facility] [place] [facility] [address] [place] [address] 10/23/2025 9:00 AM EST P[place] [facility] [place] [facility] [place] [address] [place] [address] 10/30/2025 9:00 AM EDT PACE Attendance[place] [facility] [place] [facility] [address] [place] [address] 11/06/2025 9:00 AM EDT P[place] Attend[place] [facility] [place] [facility] [address] [place] [address] 11/13/2025 9:00 AM EDT P[place] Att[place] [facility] [place] [address] [place] [phone] 11/20/2025 9:00 AM EDT P[place] Att[place]ance[place] [facility] [place] [address] [place] [address] 11/27/2025 9:00 AM EDT P[place] Att[place] [facility] [place] [address] [place] [address] 12/04/2025 9:00 AM EDT P[place] Att[place] [facility] [place] [facility] [address] [place] [address] 12/11/2025 9:00 AM EDT P[place] Att[place] [facility] [place] [facility] [address] [place] [phone] 12/18/2025 9:00 AM EDT P[place] Att[place] [facility] [place] [facility] [address] [place] [address] 12/25/2025 9:00 AM EDT P[place] Att[place] [facility] [place] [facility] [address] [place] [address] 01/01/2026 9:00 AM EDT P[place] Att[place] [facility] [place] [facility] [address] [place] [address] 01/08/2026 9:00 AM EDT P[place] Att[place] [facility] [place] [address] [place] [address] 01/15/2026 9:00 AM EDT P[place] Att[place] [facility] [place] [address] [place] [address] 01/22/2026 9:00 AM EDT P[place] Att[place] [facility] [place] [address] [place] [address] 01/29/2026 9:00 AM EDT P[place] Att[place] [facility] [place] [address] [place] [address] 02/05/2026 9:00 AM EDT P[place] Att[place] [facility] [place] [address] [place] [address] 02/12/2026 9:00 AM EDT P[place] [facility] [place] [facility] [address] [place] [address] 02/19/2026 9:00 AM EDT P[place] Att[place] [facility] [place] [facility] [address] [place] [address] 02/26/2026 9:00 AM EDT P[place] Att[facility] [facility] [place] [address] [place] [address] 03/05/2026 9:00 AM EDT P[place] Att[place] [facility] [place] [facility] [address] [place] [address] 03/12/2026 9:00 AM EDT [place] Att[place] [facility] [place] [address] [place] [address] 03/19/2026 9:00 AM EDT P[place] Att[place] [facility] [place] [facility] [address] [place] [address] 03/26/2026 9:00 AM EDT PACE [facility] [address] [place] [phone] 04/02/2026 9:00 AM EDT PACE Attendance/[facility] P[facility] Day Center [address] [place] [phone] 04/09/2026 9:00 AM EDT PACE Attendance/[facility] P[facility] Day Center [address] [place] [phone] 04/16/2026 9:00 AM EDT PACE Attendance/Day Center [facility] Day [address] [address] 04/23/2026 9:00 AM EDT PACE Attendance/Day Center [facility] Day [address] [address] 06/26/2026 11:15 AM EST Office Visit Pulmonology - [address] [place] [phone] Azul Cohen MD [address] [place] [phone] documented as of this encounter Visit Diagnoses Not on filedocumented in this encounter Care Teams Product Management Intern Relationship Specialty Start Date End Date Wandy Rivera NP [address] [place] [phone] PCP - General Family Medicine 06/14/24 documented as of this encounter
--- NOTE | 2025-07-19 10:05 | A.OFFVIS_ITS ---
Intake Visit Reasons: 6M Med Review/Follow Up(set) Intake Note: Reason for Visit: Telehealth Med Review Urology Meds: Trospium Blood Thinners: None Labs: Last PSA: 0.29 (12/06/2024) Imaging: None Last PVR: None Machine Group Leader Required: No Breakfast Manager: Breakfast Manager Present Accompanied by: Spouse Allergies No Known Allergies (No Known Allergies*) Allergy (Verified 07/19/25 10:05) HPI Comments Details: Aditya is very pleasant male. He is seen for the following urologic issues - prostate cancer - radiation cystitis Telemedicine Evaluation 15 min Consultation [employer] Cha Video Six-month follow-up Has dementia diagnosis cared for by his Has been on tropsium for bladder stability Continue good response Follow-up 12 month PSA Radiation cystitis with urgency and frequency and background of diabetes Nocturia times 3-4 Does drink more than 6 glasses of water per day. 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 Urgency frequency during the day Prior medications include solifenacin Prostate cancer intermediate risk, radiation therapy July 2014 Minimal symptoms Effective bladder emptying No hematuria PSA historically ranges 0.4 to 0.9 PSA - 04/13 0.5, 04/14 0.66, 04/15 0.53, 12/16 0.3 Reassurance provided Prior history of renal stones with ESWL Ultrasound 03/11 negative with renal cyst PFSH Medical History Coronary artery disease Dementia Radiation cystitis Memory deficit GERD (gastroesophageal reflux disease) Elevated cholesterol HTN (hypertension) Prostate cancer High cholesterol Diabetes mellitus, type II Surgical History History of right inguinal hernia repair (04/29/23) H/O lithotripsy History of surgery Family History Mother Diabetes Hypertension Father Smoker Social History Housing: House Patient Tobacco Use Status: Former Tobacco user e-Cigarette/Vaping Use: Never Used Current occupational status: retired Cognitive needs: No Hearing needs: No Vision needs: No Review of Systems Const All systems reviewed & are unremarkable except as noted in HPI and below Reports no additional complaints Resp Reports no additional complaints GI Reports no additional complaints Reports as per HPI Musc Reports no additional complaints Physical Exam Telemedicine evaluation Appropriate responses Regular breathing rate and rhythm HEENT Head: Yes normal to inspection Ears: hearing grossly normal bilaterally Eyes General: appearance normal, both eyes and all related structures Neck Neck: Yes normal visual inspection Chest Chest palpation & inspection: normal inspection of the chest Resp Effort & Inspection: normal respiratory effort and able to speak in complete sentences Telehealth Telehealth Telehealth Platform: [employer] Location of provider rendering services: practice address Location of patient: address on file Patient Identification confirmed using: Name, : Yes Telehealth method: video Patient verbally consented to treatment: Yes Patient verbally consented to billing insurance company: Yes Patient informed of any privacy concerns related to visit: Yes Minutes spent on Phone/Video with Pt.: 15 Assessment & Plan Assessment & Plan (1) Prostate cancer: Comment: s/p RTx 2013, f/u urology Dr. Frank 04/14 annual Code(s): C61 - Malignant neoplasm of prostate Category: Medical (2) Radiation cystitis: Code(s): N30.40 - Irradiation cystitis without hematuria Category: Medical Plan Twelve month follow-up PSA office PVR Orders: Orders Prostate Specific Antigen 12 Months C61 - Malignant neoplasm of prostate Medications: Refilled trospium ER must be taken on empty stomach at least 1 hour before a meal/food with water only 60 mg PO DAILY 90 caps 3RF 90 days N30.40 - Irradiation cystitis without hematuria Patient Instructions: This note is constructed using voice recognition software. While every effort has been made to ensure accuracy adzing and boring machine operator errors may have been included. Imaging studies, laboratory and physical exam results were discussed and reviewed in detail. No major barriers to patient understanding were identified. An opportunity to ask questions regarding the treatment plan was provided. All questions were answered. The patient expressed understanding and agreement with the above treatment plan. The patient is aware they should contact our office by phone for worsening of their current condition or the appearance of new urologic symptoms. Compliance is encouraged with any medications and followup testing that is ordered. It is a privilege to participate in the urologic care of your patient. If you have any questions or concerns regarding treatment for the above conditions, or other urologic issues, please do not hesitate to contact me. The office t elephone contact is [phone]. Sincerely, Dr Eddie Frank MD, [facility] - Urology Compassionate Specialist Care for the Genitourinary System Coding Level of Care Code Tele Est Pt Level 3 (55012) Complex visit Add On G2211 Diagnoses Prostate cancer C61 Radiation cystitis N30.40
--- OUTSIDE RECORDS SUMMARY | 2025-07-19 11:45 | XMS_ITS | Clinical Summary ---
Author Organization [facility] Address [address] [place] [address] Phone Care Team Providers Care Water Resources Project Manager Name Role Phone Wandy Rivera REAL TIME OPERATOR Primary Care Provider [phone] Allergies No known active allergies Medications umeclidinium-vilan teroL (Anoro Ellipta) 62.5-25 mcg/actuation inhalerIndications :Chronic obstructive pulmonary disease, unspecified COPD type (CMS/HCC V24, CMS/HCC V28) Inhale 1 puff by mouth 1 (one) time each day. 1 each 11/19/19 25 Active thiamine 100 mg tabletIndications: Thiamine deficiency Take 1 tablet (100 mg total) by mouth 1 (one) time each day. 30 tablet 12/28/19 25 026 Active sodium chloride 1 gram tabletIndications: Hyponatremia Take 1 tablet (1 g total) by mouth 1 (one) time each day. Cycle (Next Cycle) 28 each 01/05/20 25 026 Active mirtazapine (REMERON) 15 mg tabletIndications: Primary insomnia Take 1 tablet (15 mg total) by mouth at bedtime. at bedtime. 28 each 01/05/20 Active ferrous sulfate 325 mg (65 mg iron) EC tabletIndications: Iron deficiency anemia, unspecified iron deficiency anemia type Take 1 tablet (325 mg total) by mouth every other day. Do not crush, chew, or split. 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 60 each 01/19/20 Active pravastatin (PRAVACHOL) 40 mg tabletIndications: Mixed hyperlipidemia Take 1 tablet (40 mg total) by mouth at bedtime. 28 each 01/19/20 Active OLANZapine (ZyPREXA) 7.5 mg tabletIndications: Moderate Alzheimer's dementia with agitation, unspecified timing of dementia onset (CMS/[facility] V24, CMS/[facility] V28) Take 1 tablet (7.5 mg total) by mouth 1 (one) time each day. 28 tablet 01/19/20 Active famotidine (Pepcid) 20 mg tabletIndications: Gastroesophageal reflux disease with esophagitis without hemorrhage Take 1 tablet (20 mg total) by mouth 1 (one) time each day in the evening. 28 each 01/19/20 Active vibegron (Gemtesa) 75 mg tablet tabletIndications: Overactive bladder Take 1 tablet (75 mg total) by mouth 1 (one) time each day. 28 each 01/19/20 Active cholecalciferol (Vitamin D3) 50 mcg (2,000 unit) tabletIndications: Vitamin D deficiency Take 1 tablet (2,000 Units total) by mouth 1 (one) time each day. 30 tablet 03/02/20 Active omeprazole OTC (PriLOSEC OTC) 20 mg EC tabletIndications: Gastroesophageal reflux disease with esophagitis without hemorrhage Take 1 tablet (20 mg total) by mouth 1 (one) time each day. Do not crush, chew, or split. 28 tablet 04/12/20 Active losartan (Cozaar) 50 mg tabletIndications: Primary hypertension Take 1 tablet (50 mg total) by mouth 1 (one) time each day. 30 each 04/25/20 25 Active glipiZIDE (GLUCOTROL) 5 mg tabletIndications: Type 2 diabetes mellitus with diabetic peripheral angiopathy without gangrene, without long-term current use of insulin ([facility] V24, [facility] V28) Take 1 tablet (5 mg total) by mouth 2 (two) times a day before meals. 60 each 06/09/20 Active baclofen (LIORESAL) 10 mg tabletIndications: Chronic hiccoughs Take 1 tablet (10 mg total) by mouth 3 (three) times a day if needed for muscle spasms (hicupps). 30 tablet 06/09/20 Active albuterol HFA (PROAIR HFA ; PROVENTIL HFA ; VENTOLIN HFA) 90 mcg/actuation inhalerIndications :Chronic obstructive pulmonary disease, unspecified COPD type ([facility] V24, [facility] V28) Inhale 2 puffs by mouth every 6 (six) hours if needed for shortness of breath or wheezing. 6.7 g 06/09/20 25 Active acetaminophen (TYLENOL) 325 mg tabletIndications: Squamous cell carcinoma in situ Take 2 tablets (650 mg total) by mouth every 6 (six) hours if needed for moderate pain, mild pain or fever - temperature GREATER than 38 C (100.4 F). 30 tablet 5 06/09/20 25 Active omeprazole (PriLOSEC) [address] capsule Take 1 capsule (40 mg total) by mouth daily. Active umeclidinium-vilan teroL (Anoro Ellipta) 62.5-25 mcg/actuation inhaler Inhale 1 puff by mouth 1 (one) time each day. 3 each 3 06/27/20 25 Active Active Problems Problem Noted Date Diagnosed Date Overactive bladder 01/31/2025 Assessment & Plan (01/31/2025 11:42 AM EDT): Chronic condition; will trial Gemtesa. Reevaluate. Encounter for assessment of healthcare decision-making capacity 01/25/2025 Assessment & Plan (01/25/2025 3:22 PM EDT): Unable to do this eval due to need for Medical Peruvian glove maker. Will set this up prior to f/u viist. Peruvian american sign language interpreter needed 01/25/2025 Overview (02/19/2025): This is a basic requirement for any care plan meetings, family meetings, clinic meetings, therapy sessions, [facility] appts. Assessment & Plan (02/19/2025 12:44 PM EDT): We should have Peruvian american sign language interpreter for all clinic appts. Assessment & Plan (01/25/2025 3:22 PM EDT): -Front staff: please have a Medical Peruvian american sign language interpreter available on the phone at the next appt to evaluate/assess for Capacity to make HC decisions. Anemia, iron deficiency 09/02/2024 Assessment & Plan (01/31/2025 11:37 AM EDT): Chronic condition; continue daily iron supplementation. Recheck iron levels. Anorexia 09/02/2024 Assessment & Plan (01/31/2025 11:38 AM EDT): Chronic condition. Appetite has improved per family. Weight has been stable. Continue to monitor Thoracic aorta atherosclerosis (CMS/HCC V24) 05/2025 Overview (01/25/2025): >>OVERVIEW FOR TORTUOUS AORTA (CMS/HCC V24) WRITTEN ON 09/02/2024 12:02 PM BY MARVIN MCCONNELL Thoracic Aorta Tortuous Assessment & Plan (01/31/2025 11:31 AM EDT): Chronic condition; stable continue to monitor as needed. Close continue blood pressure less than 140/90. Continue to monitor blood pressures at home. Blood pressure elevated in clinic today. Squamous cell carcinoma in situ 09/02/2024 Assessment & Plan (01/31/2025 11:38 AM EDT): Chronic condition. Being monitored by CT chest. He has a follow-up with oncology this upcoming Thursday. Decision in the past has been made just to observe patient and no active treatment at this time. Will follow. Lung disease, interstitial ([facility] V24, [facility] V28) 09/02/2024 Overview (09/02/2024): Right Upper Lung Assessment & Plan (01/31/2025 11:30 AM EDT): Condition; stable. Continue current use of Anoro daily and albuterol as needed. Follow-up with clinical admissions manager as indicated. Constipation 09/02/2024 Assessment & Plan (01/31/2025 11:33 AM EDT): Chronic condition; stable. No acute concerns. Continue to monitor. COPD (chronic obstructive pu lmonary disease) ([facility] V24, [facility] V28) 09/02/2024 Assessment & Plan (02/19/2025 12:44 PM EDT): Currently not in need of supplemental oxygen. Continue to monitor. Consider a combination of LABA-LAMA HFA with spacer, daily. Assessment & Plan (01/31/2025 11:29 AM EDT): Condition; stable. Continue current medications as prescribed. Coronary artery disease 09/02/2024 Assessment & Plan (01/31/2025 11:31 AM EDT): Chronic condition; stable. Asymptomatic. Continue to monitor for any symptoms. Severe vascular dementia wit h agitation ([facility] V24, [facility] V28) 09/02/2024 Overview (02/19/2025): MoCA 02/14/25: 4/30 + 1 (<12 yr educ), in Peruvian Assessment & Plan (02/19/2025 12:44 PM EDT): MoCA today was 30 +1 pt for less than a 12 yr education. This was done completely in Peruvian with a glove maker on the phone. He is on namenda 10mg BID. Continue and monitor. Aditya will need Peruvian glove maker on speaker phone for all clinic, therapy, and [facility] appts. attn: Neha Burgess may need more assistance at home; attn: Huong Assessment & Plan (01/25/2025 5:05 PM EDT): Patient's verbal fluency is limited, and in Peruvian. Will assess at f/u visit, with Peruvian [employer] services on the phone. DM (diabetes mellitus), type 2 (CMS/[facility] V24, CMS /[facility] V28) 09/02/2024 Assessment & Plan (01/31/2025 11:36 AM EDT): Chronic condition; stable on current medications. Family denies any episodes of hypoglycemia. Continue to monitor blood sugars at home. Recheck hemoglobin A1c. GERD with esophagitis 09/02/2024 Assessment & Plan (01/31/2025 11:47 AM EDT): Chronic condition; stable. Asymptomatic. Continue on PPI and H2 grace. Reducing doses of medications by 50%. Continue to monitor. Hiatal hernia 09/02/2024 Assessment & Plan (01/31/2025 11:33 AM EDT): Chronic condition; stable. Continue daily use of PPI and H2 grace but reducing to 20 mg daily of omeprazole and 20 mg of famotidine daily. Currently asymptomatic. Dysphagia 09/02/2024 Assessment & Plan (01/31/2025 11:34 AM EDT): Condition; stable. No acute concerns at this time. Continue to monitor. Incontinence of urine 09/02/2024 Assessment & Plan (01/31/2025 11:34 AM EDT): Chronic condition; stable. Continue supportive measures. Nocturia 09/02/2024 Assessment & Plan (01/31/2025 11:38 AM EDT): Chronic condition; stable. Continue supportive measures. Hyperlipidemia 09/02/2024 Assessment & Plan (01/31/2025 11:36 AM EDT): Chronic condition; stable. Continue daily statin therapy. Monitor lipid panel yearly. Hypertension 09/02/2024 Assessment & Plan (02/19/2025 12:44 PM EDT): Elevated BP today, but pt does have anxiety. Continue to monitor, perhaps ambulatory monitoring in the [facility], when pt may be more relaxed. Assessment & Plan (01/31/2025 11:33 AM EDT): Chronic condition; labile. Blood pressure elevated today in clinic. Spouse has been monitoring blood pressures at home and reports a systolic blood pressure less than 150. Advising spouse to monitor blood pressure twice daily and will follow-up telephonically in 2 weeks. Assessment & Plan (01/30/2025 11:41 AM EDT): Consistently elevated BP. Meds will be adjusted next appt. Assessment & Plan (01/25/2025 5:05 PM EDT): Pt's BP is very high today. Will do a trial of losartan 50mg, and reassess. Orders: losartan (Cozaar) 50 mg tablet; Take 1 tablet (50 mg total) by mouth 1 (one) time each day for 28 days. Verito, please see how we can get this to pt tomorrow (should be coming to Center tomorrow) Left thyroid nodule 09/02/2024 Assessment & Plan (01/31/2025 11:37 AM EDT): Chronic condition; evaluated by ultrasound. Decision to not perform biopsy discussed with family as patient has active lung cancer that is not being treated. Continue to monitor as needed. Follow-up with oncology. 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 Continue follow-up with corporate consultant as indicated. Callus 09/02/2024 Assessment & Plan (01/31/2025 11:35 AM EDT): Chronic condition; stable. Continue to follow with corporate consultant for debridement as needed. Hammer toes of both feet 09/02/2024 Overview (09/02/2024): Hammertoes Assessment & Plan (01/31/2025 11:35 AM EDT): Chronic condition; stable. Continue to encourage use of proper footwear. Positive QuantiFERON-TB Gold test 09/02/2024 Assessment & Plan (01/31/2025 11:39 AM EDT): Chronic condition; stable. Chest x-ray which was completed showed no active signs of TB. Other specified disorders of bone density and structure, multiple sites 09/02/2024 Overview (09/02/2024): DEXA: Z13.820, M85.89 Assessment & Plan (01/31/2025 11:35 AM EDT): Chronic condition; goal is to get maintain vitamin D3 level greater than 30. Continue to monitor vitamin D level yearly. Resolved Problems Problem Noted Date Diagnosed Date Resolved Date Fall as cause of accidental injury at home as place of occurrence 01/25/2025 01/31/2025 Assessment & Plan (01/25/2025 5:05 PM EDT): Pt has charli for lac on scalp. Need to be removed next Thursday. Date of fall was 01/22/25. F/u next week with me, for 1.5 hrs (cognitive eval, Capacity eval) and after that with PCP. Mellys 09/02/2024 02/19/2025 Overview (09/02/2024): Juan Wolf Assessment & Plan (01/31/2025 11:30 AM EDT): Chronic condition; stable. Hiccups have not returned. Using baclofen as needed. Encounters Date Type Department Care Team Description 07/13/2025 9:00 AM EST P[facility] Home [facility] / [facility] [place] [facility] [place] [facility] [address] [place] [phone] Nurse, Collette 07/11/2025 1:00 PM EST PACE Home Care / [place] Home Visit [facility] [place] [facility] [address] [place] [phone] Nurse, Collette 06/28/2025 9:15 AM EST [facility] [place] [facility] [address] [place] [phone] Gary Newman OT Severe vascular dementia with agitation ([facility] V24, [facility] V28) (Primary Dx) 06/27/2025 1:00 PM EST [facility]ACE [facility] [address] [place] [phone] Nurse, Collette 06/27/2025 10:49 AM EST - 06/27/2025 11:59 PM EST Hospital Encounter [facility] Ultrasound [address] [place] [phone] Thyroid nodule Discharge Disposition: Home or Self Care 06/27/2025 10:30 AM EST Office Visit Pulmonology - [place] [facility] [address] [place] [phone] Azul Cohen MD Chronic obstructive pulmonary disease, unspecified COPD type (CMS/HCC V24, CMS/HCC V28) (Primary Dx); Malignant neoplasm of upper lobe of right lung (CMS/HCC V24, CMS/HCC V28); TB lung, latent; Ex-smoker 06/27/2025 [facility] [address] [place] [phone] Estephania Coleman RN 06/22/2025 12:00 PM EDT [facility] Home [facility] / [place] [facility] [place] [facility] [place] [facility] [address] [place] [phone] Nurse, Collette 06/20/2025 12:30 PM EDT P[facility] Home [facility] / [place] [facility] [place] [facility] [address] [place] [phone] Nurse, Collette 06/15/2025 12:00 PM EDT PACE Home Care / [place] [facility] [place] [facility] [address] [place] [phone] Nurse, Collette 06/13/2025 1:00 PM EDT PACE Home Care / [place] [facility] [place] [facility] [address] [place] [phone] Nurse, Collette 06/08/2025 1:00 PM EDT PACE Home Care / [place] [facility] [place] [facility] [address] [place] [phone] Nurse, Collette 06/06/2025 12:30 PM EDT PACE Home Care / [place] [facility] [place] [facility] [address] [place] [phone] Nurse, Collette 06/01/2025 12:00 PM EDT PACE Home Care / [place] [facility] [place] [facility] [address] [place] [phone] Nurse, Collette 05/30/2025 1:00 PM EDT P[facility] Home Care / [place] [facility] [place] [facility] [place] [facility] [address] [place] [phone] NurseCollette 05/18/2025 12:00 PM EDT P[facility] Home Care / [place] [facility] [place] [facility] [address] [place] [phone] NurseCollette 05/16/2025 10:00 AM EDT PACE Home Care / [place] [facility] [place] [facility] [place] [facility] [address] [place] [phone] Nurse, Collette 05/09/2025 1:00 PM EDT PACE Home Care / [place] [facility] [place] [facility] [place] [facility] [address] [place] [phone] NurseCollette 05/02/2025 12:30 PM EDT PACE Home Care / [place] [facility] [place] [facility] [place] [facility] [address] [place] [phone] Nurse, Collette 04/27/2025 12:00 PM EDT PACE Home Care / [place] [facility] [place] [facility] [address] [place] [phone] NurseCollette 04/20/2025 10:15 AM EDT PACE Home Care / [place] [facility] [place] [facility] [address] [place] [phone] NurseCollette from Last 3 Months Immunizations Immunization Administration Dates Next Due Influenza, Unspecified 07/29/2024 Moderna SARS-CoV-2 COVID-19, mRNA, LNP-S, preservative free 07/29/2024 Pneumococcal conjugate 13 va lent (Prevnar 13, PCV13) 2mo and older 01/29/2016 Pneumococcal polysaccharide 23 valent (Pneumovax 23) 2yo and older 11/04/2011 Tdap Tetanus diptheria acell ular pertussis (Boostrix; Adacel) 7yo and older 01/22/2025 Surgical History Surgery Date Site/Laterality Comments KIDNEY STONE SURGERY Medical History Medical History Date Comments Diabetes mellitus ([facility]/HCC V24, CMS/[facility] V28) Hypertension Anemia Dementia (CMS/HCC V24, CMS/HCC V28) H/O recurrent pneumonia H/O prostate cancer Hyponatremia History of smoking Wears dentures Fall as cause of accidental injury at home as place of occurrence 01/25/2025 Maryann 09/02/2024 [employer] rent Social History Tobacco Use Types Packs/Day Years [...] Sign Reading Time Taken Comments Blood Pressure 157/61 06/27/2025 10:20 AM EST Pulse 72 06/27/2025 10:20 AM EST Temperature 36.1 C (97 F) 06/27/2025 10:20 AM EST Respiratory Rate 16 12/01/2024 10:38 AM EDT Oxygen Saturation 96% 06/27/2025 10:20 AM EST Inhaled Oxygen Concentration - - Weight 76.7 kg (169 lb) 06/27/2025 10:20 AM EST Height 170.2 cm (5' 7 ) 12/01/2024 10:38 AM EDT Body Mass Index 26.47 12/01/2024 10:38 AM EDT Plan of Treatment Upcoming Encounters Date Type Department Care Team (Late st Contact Info) Description 07/21/2025 9:00 AM EST PACE Attendance/Day Center [facility] [place] [address] [place] [phone] 07/24/2025 9:00 AM EST PACE Attendance/Day Center [facility] [address] [place] [phone] 07/25/2025 10:30 AM EST PACE Assessment [facility] PACE Clinic [address] [place] [phone] Wandy Rivera NP [address] [address] 07/25/2025 1:15 PM EST Office Visit [facility] Hematology Oncology [address] [place] [phone] Rene Kutrz MD [address] [place] [address] 07/26/2025 9:00 AM EST PACE Attendance/[facility] [place] [facility] [address] [place] [phone] 07/27/2025 12:00 PM EST PACE [facility] Care [facility] [address] [place] [phone] NurseCollette 07/28/2025 9:00 AM EST [facility] [place] [facility] [address] [place] [phone] 07/31/2025 9:00 AM EST PACE [facility] [place] [facility] [address] [place] [phone] 08/01/2025 12:30 PM EST PACE Home Care / [facility] [place] [facility] [address] [place] [phone] NurseCollette 08/02/2025 9:00 AM EST [facility] [place] [facility] [place] [facility] [address] [place] [phone] 08/03/2025 12:00 PM EST PACE Home Care / [facility] [place] [facility] [place] [facility] [address] [place] [phone] Nurse, Collette 08/04/2025 9:00 AM EST PACE Attendance[facility] [place] [facility] [address] [place] [phone] 08/07/2025 9:00 AM EST PACE Attendance/[facility] [place] [facility] [address] [place] [phone] 08/08/2025 12:30 PM EST PACE Home Care / [facility] [place] [facility] [place] [facility] [address] [place] [phone] Nurse, Collette 08/09/2025 9:00 AM EST [facility] [place] [facility] [place] [facility] [address] [place] [phone] 08/10/2025 12:00 PM EST PACE Home Care / [facility] [place] [facility] [place] [facility] [address] [place] [phone] NurseCollette 08/11/2025 9:00 AM EST [facility] [place] [facility] [place] [facility] [address] [place] [phone] 08/14/2025 9:00 AM EST [facility] [facility] [place] [facility] [address] [place] [address] 08/15/2025 12:30 PM EST PACE Home Care / [facility] [place] [facility] [place] [facility] [address] [place] [phone] NurseCollette 08/16/2025 9:00 AM EST [facility] [place] [facility] [place] [facility] [address] [place] [phone] 08/17/2025 12:00 PM EST PACE Home Care / [place] [place] [facility] [place] [facility] [address] [place] [phone] NurseCollette 08/18/2025 9:00 AM EST [facility] Att[facility] [facility] [place] [facility] [address] [place] [address] 08/21/2025 9:00 AM EST [facility] Attendance[facility] [place] [facility] [address] [place] [address] 08/22/2025 12:30 PM EST PACE Home Care / [facility] [facility] [place] [facility] [address] [place] [phone] Nurse, Collette 08/23/2025 9:00 AM EST [facility] [place] [facility] [address] [place] [address] 08/24/2025 12:00 PM EST PACE Home Care / [facility] [place] [facility] [address] [place] [phone] Nurse, Collette 08/25/2025 9:00 AM EST [facility] Attend[place] [facility] [place] [facility] [address] [place] [address] 08/28/2025 9:00 AM EST [facility] [place] [facility] [address] [place] [phone] 08/29/2025 12:30 PM EST PACE Home Care / [facility] [place] [facility] [place] [facility] [address] [place] [phone] Nurse, Collette 08/30/2025 9:00 AM EST [facility] [place] [facility] [place] [facility] [address] [place] [phone] 08/31/2025 12:00 PM EST PACE Home Care / [place] [facility] [place] [facility] [address] [place] [phone] Nurse, Collette 09/01/2025 9:00 AM EST [facility] Att[place] [facility] [place] [facility] [address] [place] [phone] 09/04/2025 9:00 AM EST [facility] [place] [facility] [address] [place] [phone] 09/05/2025 12:30 PM EST PACE Home Care / [facility] [place] [facility] [address] [place] [phone] Nurse, Collette 09/06/2025 9:00 AM EST [facility] [place] [facility] [address] [place] [address] 09/07/2025 12:00 PM EST PACE Home Care / [facility] [place] [facility] [place] [facility] [address] [place] [phone] Nurse, Collette 09/08/2025 9:00 AM EST [facility] [place] [facility] [place] [facility] [address] [place] [address] 09/11/2025 9:00 AM EST [facility] [place] [facility] [place] [facility] [address] [place] [address] 09/12/2025 12:30 PM EST PACE Home Care / [facility] [place] [facility] [place] [facility] [address] [place] [phone] Nurse, Collette 09/13/2025 9:00 AM EST [facility] [place] [facility] [place] [facility] [address] [place] [phone] 09/14/2025 12:00 PM EST P[facility] Home [facility] / [facility] [place] [facility] [place] [facility] [address] [place] [phone] Nurse, Collette 09/15/2025 9:00 AM EST [facility] Att[facility] [place] [facility] [address], [place] [address] 09/18/2025 9:00 AM EST [facility] [place] [facility] [address] [place] [address] 09/20/2025 9:00 AM EST [facility] [place] [facility] [address] [place] [address] 09/22/2025 9:00 AM EST [facility] [place] [facility] [address] [place] [address] 09/25/2025 9:00 AM EST [facility] [place] [facility] [place] [facility] [address] [place] [phone] 09/27/2025 9:00 AM EST [facility] [facility] [place] [facility] [address] [place] [phone] 09/29/2025 9:00 AM EST [facility] [facility] [place] [facility] [address] [place] [phone] 10/02/2025 9:00 AM EST [facility] [facility] [place] [facility] [address] [place] [phone] 10/04/2025 9:00 AM EST [facility] [place] [facility] [address] [place] [phone] 10/09/2025 9:00 AM EST [facility] [facility] [place] [facility] [address] [place] [phone] 10/16/2025 9:00 AM EST [facility] [place] [facility] [address] [place] [phone] 10/23/2025 9:00 AM EST [facility] [place] [facility] [address] [place] [phone] 10/30/2025 9:00 AM EDT [facility] [facility] [place] [facility] [address] [place] [phone] 11/06/2025 9:00 AM EDT [facility] [place] [facility] [address] [place] [phone] 11/13/2025 9:00 AM EDT [facility] [facility] [place] [facility] [address] [place] [phone] 11/20/2025 9:00 AM EDT [facility] [place] [facility] [address] [place] [phone] 11/27/2025 9:00 AM EDT [facility] [place] [facility] [address] [place] [address] 12/04/2025 9:00 AM EDT [facility] [place] [facility] [address] [place] [address] 12/11/2025 9:00 AM EDT [facility] [place] [facility] [address] [place] [phone] 12/18/2025 9:00 AM EDT [facility] [place] [facility] [address] [place] [phone] 12/25/2025 9:00 AM EDT [facility] [place] [facility] [address] [place] [phone] 01/01/2026 9:00 AM EDT [facility] [place] [facility] [address] [place] [phone] 01/08/2026 9:00 AM EDT [facility] [place] [facility] [address] [place] [phone] 01/15/2026 9:00 AM EDT [facility] [place] [facility] [address] [place] [phone] 01/22/2026 9:00 AM EDT [facility] [place] [facility] [address] [place] [phone] 01/29/2026 9:00 AM EDT [facility] [place] [facility] [address] [place] [phone] 02/05/2026 9:00 AM EDT [facility] [place] [facility] [address] [place] [address] 02/12/2026 9:00 AM EDT [facility] [place] [facility] [address] [place] [phone] 02/19/2026 9:00 AM EDT [facility] [place] [facility] [address] [place] [phone] 02/26/2026 9:00 AM EDT [facility] [place] [facility] [address] [place] [phone] 03/05/2026 9:00 AM EDT [facility] [place] [facility] [address] [place] [phone] 03/12/2026 9:00 AM EDT [facility] [place] [facility] [address] [place] [phone] 03/19/2026 9:00 AM EDT [facility] [place] [facility] [address] [place] [phone] 03/26/2026 9:00 AM EDT [facility] [place] [facility] [address] [place] [phone] 04/02/2026 9:00 AM EDT [facility] [facility] [place] [facility] [address] [place] [phone] 04/09/2026 9:00 AM EDT [facility] [facility] [place] [facility] [address] [place] [address] 04/16/2026 9:00 AM EDT [facility] [facility] [place] [facility] [address] [place] [phone] 04/23/2026 9:00 AM EDT PACE Attendance/Day Center [facility] [address] [place] [address] 06/26/2026 11:15 AM EST Office Visit Pulmonology - [place] [address] [facility] [address] [place] [address] Azul Cohen MD [facility] [place] [address] Health Maintenance Due Date Last Done Comments Diabetes: Annual Foot Exam 1956 Diabetes: Annual Retina Eye Exam 1955 Zoster Vaccines (1 of 2) 1965 RSV Immunization Adult Patients (1 - 1-dose 75+ series) 2021 Falls Risk Assessment 06/01/2024 Hepatitis C Screening 06/01/2024 Social Influencers of Health Screening 06/01/2024 Diabetes: Annual Urine Albumin-Creatinine Ratio (uACR) 06/27/2024 Depression Screening 08/24/2024 COVID-19 Vaccine ( season) 2025 07/29/2024, 07/02/2022, 08/02/2021, Additional history exists Influenza Vaccine (#1) 2025 , 08/27/2023, 08/27/2023 Diabetes: Blood Sugar Control Test (HGBA1C) 07/21/2025 01/18/2025, 01/29/2024 Diabetes: Annual GFR (Glomerular Filtration Rate) 01/18/2026 01/18/2025, 05/18/2024, 05/05/2024, Additional history exists Hypertension/CHF/CAD Annual BMP Blood Test 01/18/2026 01/18/2025, 05/18/2024, 05/05/2024, Additional history exists Cholesterol Screening (Lipid Panel) 01/18/2030 01/18/2025, 01/29/2024 DTaP,Tdap,and Td Vaccines (4 - Td or Tdap) 01/22/2035 01/22/2025, 09/26/2021, 11/04/2011 Pneumococcal Vaccine: 50+ Years Completed 01/29/2016, 11/04/2011 HIB Vaccines Aged Out No longer eligi [...] Procedure Name Priority Date/Time Associated Diagnosis Comments US HEAD NECK SOFT TISSUE Routine 06/27/2025 11:15 AM EST Thyroid nodule COMPREHENSIVE METABOLIC PANEL Routine 01/18/2025 11:51 AM EDT Type 2 diabetes mellitus with diabetic peripheral angiopathy without gangrene, without long-term current use of insulin ([facility] V24, [facility] V28) HEMOGLOBIN A1C Routine 01/18/2025 11:51 AM EDT Type 2 diabetes mellitus with diabetic peripheral angiopathy without gangrene, without long-term current use of insulin ([facility] V24, [facility] V28) LIPID PANEL WITH REFLEX TO DIRECT LDL Routine 01/18/2025 11:51 AM EDT Mixed hyperlipidemia from Last 3 Months or Most Recently Relevant to Health Maintenance Results * US Head Neck Soft Tissue (06/27/2025 11:15 AM EST) Anatomical Region Laterality Modality Head and Neck Ultrasound 06/30/2025 11:4 7 AM EST Impressions 06/30/2025 11:56 AM EST Multinodular thyroid. No significant change in the dominant left lobe nodule. By report there was metabolic activity in the left lobe of thyroid on PET/CT. If previous sampling has not been undertaken biopsy should be considered. If biopsy is not performed continued short interval follow-up ultrasound recommended Composition: cystic or spongiform: 0 pt mixed cystic and solid: 1 pt solid or almost completely solid: 2 pts Echogenicity: anechoic: 0 pt hyperechoic or isoechoic: 1 pt hypoechoic: 2 pts very hypoechoic: 3 pt Shape: wider than tall: 0 pt taller than wide: 3 pts Margin: smooth: 0 pt ill-defined: 0 pt lobulated/irregular: 2 pts extra-thyroidal extension: 3 pts Echogenic foci none or large comet tail artifact: 0 pt macro-calcification: 1 pt peripheral/rim ca++: 2 pts punctate echogenic foci: 3 pts TR1: 0 pts; benign; no follow-up TR2: 2 pts; not suspicious; no FNA TR3: 3 pts; mildly suspicious; < or = 1.5 cm f/u; > or = 2.5 cm FNA TR4: 4-6 pts; moderately suspicious; < or = 1.0 cm follow-up; 1.5 cm FNA TR5: 7 or > pts; highly suspicious; .5-.9 cm f/u; 1.0 cm or > FNA -------- FINAL REPORT -------- Dictated By: Kwabena Pena Dictated Date: 06/30/2025 11:47 ET Assigned Physician: Kwabena Pena Reviewed and Electronically Signed By: Kwabena Pena Signed Date: 06/30/2025 11:56 ET Workstation ID: [id number] Transcribed By: Self Edit Transcribed Date: 06/30/2025 11:47 ET Narrative 06/30/2025 11:56 AM EST HISTORY: Thyroid nodule TECHNIQUE: Grayscale assessment of the thyroid was performed with a high frequency linear transducer. COMPARISON: Portions of previous 08/09/24 FINDINGS: Measurements: RIGHT LOBE: Current 4.4 x 1.9 x 1.6 cm Previous measurement: 4.2 x 1.9 x 1.7 cm LEFT LOBE : Current 4.9 x 3.7 x 2.7 cm Previous measurement: 4.6 x 4.0 x 2.4 cm ISTHMUS (AP): Current 0.5 cm Previous measurement: 0.3 cm Gland contour: Smooth Background echogenicity: Homogeneous Background vascularity: Normal Masses: Right lobe: Lower pole Circumscribed homogeneous hypoechoic solid nodule. Mild posterior enhancement. No suspicious calcification. No suspicious internal color signal. No evidence of extrathyroidal extension 06/27/25-0.9 x 0.6 x 0.5 cm 08/09/24-1.0 x 0.5 x 1.1 cm TR 4 Lower pole Adjacent to the above-described nodule there is a circumscribed nodule which has multiple thin internal septations and some posterior enhancement. No suspicious calcification 06/27/25-0.8 x 0.6 x 0.6 cm This was either not present or not demonstrated on the previous study TR 3 LEFT LOBE Replacing most of the central left lobe There is a heterogeneous mostly solid nodule with circumscribed margins and some internal cystic spaces. There is some peripheral and mild internal color signal. There is no extrathyroidal extension or suspicious calcification 06/27/25-3.1 x 3.2 x 2.5 cm 08/09/24-3.6 x 2.8 x 2.1 cm (remeasured) TR 4 OTHER: Extrathyroidal extension: None Regional lymph nodes: No enlarged lymph nodes demonstrated Procedure Note Kwabena Pena MD - 06/30/2025 HISTORY: Thyroid nodule TECHNIQUE: Grayscale assessment of the thyroid was performed with a highfrequency linear transducer. COMPARISON: Portions of previous 08/09/24 FINDINGS: Measurements: RIGHT LOBE: Current 4.4 x 1.9 x 1.6 cm Previous measurement: 4.2 x 1.9 x 1.7 cm LEFT LOBE : Current 4.9 x 3.7 x 2.7 cm Previous measurement: 4.6 x 4.0 x 2.4 cm ISTHMUS (AP): Current 0.5 cm Previous measurement: 0.3 cm Gland contour: Smooth Background echogenicity: Homogeneous Background vascularity: Normal Masses: Right lobe: Lower pole Circumscribed homogeneous hypoechoic solid nodule. Mild posteriorenhancement. No suspicious calcification. No suspicious internal colorsignal. No evidence of extrathyroidal extension 06/27/25-0.9 x 0.6 x 0.5 cm 08/09/24-1.0 x 0.5 x 1.1 cm TR 4 Lower pole Adjacent to the above-described nodule there is a circumscribed nodulewhich has multiple thin internal septations and some posteriorenhancement. No suspicious calcification 06/27/25-0.8 x 0.6 x 0.6 cm This was either not present or not demonstrated on the previous study TR 3 LEFT LOBE Replacing most of the central left lobe There is a heterogeneous mostly solid nodule with circumscribed marginsand some internal cystic spaces. There is some peripheral and mildinternal color signal. There is no extrathyroidal extension or suspiciouscalcification 06/27/25-3.1 x 3.2 x 2.5 cm 08/09/24-3.6 x 2.8 x 2.1 cm (remeasured) TR 4 OTHER: Extrathyroidal extension: None Regional lymph nodes: No enlarged lymph nodes demonstrated IMPRESSION: Multinodular thyroid. No significant change in the dominant left lobenodule. By report there was metabolic activity in the left lobe of thyroid onPET/CT. If previous sampling has not been undertaken biopsy should beconsidered. If biopsy is not performed continued short interval follow-up ultrasoundrecommended Composition: cystic or spongiform: 0 pt mixed cystic and solid: 1 pt solid or almost completely solid: 2 pts Echogenicity: anechoic: 0 pt hyperechoic or isoechoic: 1 pt hypoechoic: 2 pts very hypoechoic: 3 pt Shape: wider than tall: 0 pt taller than wide: 3 pts Margin: smooth: 0 pt ill-defined: 0 pt lobulated/irregular: 2 pts extra-thyroidal extension: 3 pts Echogenic foci none or large comet tail artifact: 0 pt macro-calcification: 1 pt peripheral/rim ca++: 2 pts punctate echogenic foci: 3 pts TR1: 0 pts; benign; no follow-up TR2: 2 pts; not suspicious; no FNA TR3: 3 pts; mildly suspicious; < or = 1.5 cm f/u; > or = 2.5 cm FNA TR4: 4-6 pts; moderately suspicious; < or = 1.0 cm follow-up; 1.5 cm FNA TR5: 7 or > pts; highly suspicious; .5-.9 cm f/u; 1.0 cm or > FNA -------- FINAL REPORT -------- Dictated By: Kwabena Pena Dictated Date: 06/30/2025 11:47 ET Assigned Physician: Kwabena Pena Reviewed and Electronically Signed By: Kwabena Pena Signed Date: 06/30/2025 11:56 ET Workstation ID: [id number] Transcribed By: Self Edit Transcribed Date: 06/30/2025 11:47 ET us Wandy Rivera REAL TIME OPERATOR IMG US PROCEDURES Final Resul t * Lipid panel with reflex to direct LDL (01/18/2025 11:51 AM EDT) Cholesterol 157 0 - 200 mg/dL LAB CHEMISTRY METHOD 01/18/2025 7:12 PM EDT [facility] Triglycerides 90 0 - 150 mg/dL LAB CHEMISTRY METHOD 01/18/2025 7:12 PM EDT [facility] HDL 56 >=40 mg/dL LAB CHEMISTRY METHOD 01/18/2025 7:12 PM EDT [facility] LDL Calculated 83 0 - 100 mg/dL LAB CHEMISTRY METHOD 01/18/2025 7:12 PM EDT [facility] VLDL Cholesterol Shadi 18 mg/dL LAB CHEMISTRY METHOD 01/18/2025 7:12 PM EDT [facility] Non HDL Chol. (LDL+VLDL) 101 <145 mg/dL LAB CHEMISTRY METHOD 01/18/2025 7:12 PM EDT [facility] Chol/HDL Ratio 2.8 0.0 - 4.4 LAB CHEMISTRY METHOD 01/18/2025 7:12 PM EDT [facility] Blood Venous blood specimen / Unknown Venipuncture / Unknown 01/18/2025 11:51 AM EDT 01/18/2025 11:51 AM EDT us Wandy Rivera REAL TIME OPERATOR LAB BLOOD ORDERABLES Final Re sult [facility] [address] [place] [address], [place] [phone] * (ABNORMAL) Hemoglobin A1c (01/18/2025 11:51 AM EDT) [facility] Hemoglobin A1C 7.7(H) <6.5 % LAB CHEMISTRY METHOD 01/18/2025 10:52 PM EDT [facility] Mean Bld Glu Estim. 174 mg/dL LAB CHEMISTRY METHOD 01/18/2025 10:52 PM T [facility] Blood Venous blood specimen / Unknown Venipuncture / Unknown 01/18/2025 11:51 AM EDT 01/18/2025 11:51 AM EDT Wandy Rivera REAL TIME OPERATOR LAB BLOOD ORDERABLES Final Re sult [facility] [address] [place] [address], * (ABNORMAL) Comprehensive metabolic panel (01/18/2025 11:51 AM EDT) [facility] Sodium 132(L) 133 - 145 mmol/L LAB CHEMISTRY METHOD 01/18/2025 7:12 PM [facility] Potassium 4.2 3.5 - 5.5 mmol/L LAB CHEMISTRY METHOD 01/18/2025 7:12 PM [facility] Chloride 98 96 - 110 mmol/L LAB CHEMISTRY METHOD 01/18/2025 7:12 PM [facility] CO2 29 21 - 32 mmol/L LAB CHEMISTRY METHOD 01/18/2025 7:12 PM [facility] Anion Gap 5 3 - 11 LAB CHEMISTRY METHOD 01/18/2025 7:12 PM [facility] Glucose 253(H) 70 - 100 mg/dL LAB CHEMISTRY METHOD 01/18/2025 7:12 PM [facility] BUN 21 5 - 25 mg/dL LAB CHEMISTRY METHOD 01/18/2025 7:12 PM [facility] Creatinine 1.09 0.70 - 1.30 mg/dL LAB CHEMISTRY METHOD 01/18/2025 7:12 PM [facility] eGFR 69 >=60 mL/min/1. 73m2 LAB CHEMISTRY METHOD 01/18/2025 7:12 PM [facility] Comment:Calculation based on the Chronic Kidney Disease Epidemiology Collaboration (CKD-EPI) equation refit without adjustment for race. BUN/Creatinine Ratio 19.3 LAB CHEMISTRY METHOD 01/18/2025 7:12 PM [facility] Calcium 9.2 8.5 - 10.5 mg/dL LAB CHEMISTRY METHOD 01/18/2025 7:12 PM [facility] AST (SGOT) 16 10 - 42 unit/L LAB CHEMISTRY METHOD 01/18/2025 7:12 PM [facility] ALT (SGPT) 24 10 - 60 unit/L LAB CHEMISTRY METHOD 01/18/2025 7:12 PM [facility] Alkaline Phosphatase 68 42 - 121 unit/L LAB CHEMISTRY METHOD 01/18/2025 7:12 PM [facility] Total Protein 7.4 6.0 - 8.0 g/dL LAB CHEMISTRY METHOD 01/18/2025 7:12 PM [facility] Albumin 3.5 3.2 - 5.0 g/dL LAB CHEMISTRY METHOD 01/18/2025 7:12 PM [facility] Total Bilirubin 0.4 0.0 - 1.4 mg/dL LAB CHEMISTRY METHOD 01/18/2025 7:12 PM [facility] Blood Venous blood specimen / Unknown Venipuncture / Unknown 01/18/2025 11:51 AM EDT 01/18/2025 11:51 AM EDT Wandy Aisha REAL TIME OPERATOR LAB BLOOD ORDERABLES Final Re sult [facility] [address] [place] [address], from Last 3 Months or Most Recently Relevant to Health Maintenance Insurance [employer] * Guarantor: [facility] Account Type Relation to Patient Date of Phone Billing [place] [address] [employer] Advance Directives Documents on File Type Date 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 Do not modify or discontinue any currently active code status orders. Care Teams Water Resources Project Manager Relationship Specialty Start Date End Date Wandy Rivera NP [address] [place] [id number] PCP - General Family Medicine 06/14/24
--- OUTSIDE RECORDS SUMMARY | 2025-07-19 11:45 | XMS_ITS | Encounter Summary ---
Author Organization [facility] Address [address] [place] [address] Phone Care Team Providers Care Client Manager Name Role Phone Enrico Monzon MD Primary Care Prov ider Encounter Details Date Type Department Care Team (Late st Contact Info) Description 08/03/2023 Procedure Pass [facility], Ct Scan - [facility] [address] [place] [address] Social History Tobacco Use Types Packs/Day Years Used Date Smoking Tobacco: Former Cigarettes 0.5 15 1 985 - 2000 Smokeless Tobacco: Never Alcohol Use Standard Drinks/Week Comments Yes 0 (1 standard drink = 0.6 oz pur e alcohol) rarely Education Answer Date Recorded Are you interested in more education? Not on hai e 12/19/2022 Are you concerned about learning? Not on file 12/19/2022 No 12/19/2022 No 12/19/2022 Digital Access Answer Date Recorded No 01/16/2023 No 01/16/2023 Reliable internet access at home? Not on file 01/16/2023 Device with a working camera? Not on file Sex and Gender Information Value Date Recorded Sex Assigned at Male 12/31/2021 10:22 AM EDT Legal Sex Male 10:07 PM EDT Gender Identity Male 12/31/2021 10:22 AM EDT Sexual Orientation Not on file documented as of this encounter Functional Status * Calculated C-SSRS Risk Score (Lifetime/Recent) Answer Date of Assessment Author No Risk Indicated 08/06/2023 10:00 AM Marybeth Saez RN * [place] Suicide Severity Rating Scale (Screener/Recent Self-Report) Question Answer Date of Assessment Author 1. Wish to be (Past 1 Month) No 08/06/2023 10:00 AM Marybeth Alonzo RN 2. Non-Specific Active Suicidal Thoughts (Past 1 Month) No 08/06/2023 10:00 AM Marybeth Alonzo RN 6. Suicidal Behavior (Lifetime) No 08/06/2023 10:00 AM Marybeth Alonzo RN documented as of this encounter Plan of Treatment Not on file documented as of this encounter Visit Diagnoses Not on filedocumented in this encounter Additional Health Concerns Infection Onset Date Last Indicated Resolved Time CoV-Risk Comment:2 neg covid 08/03/2023 08/03/2023 08/04/2023 6:[address] C. diff 08/03/2023 08/03/2023 09/02/2023 1:23 AM EST documented as of this encounter Care Teams Client Manager Relationship Specialty Start Date End Date Enrico Monzon MD [address] [place] [address] [email or web address] PCP - General Family Medicine 08/03/23 documented as of this encounter Additional Source Comments The information contained in this document represents components of the legal health record. It is not the complete legal health record.[facility]
--- OUTSIDE RECORDS SUMMARY | 2025-07-19 11:45 | XMS_ITS | Encounter Summary ---
Author Organization [facility] Address [address] [place] [phone] Phone Care Team Providers Care Residential Advisor Name Role Phone Enrico Monzon MD Primary Care Prov ider Enrico Monzon MD Primary Care Prov ider Encounter Details Date Type Department Care Team (Late st Contact Info) Description 02/25/2023 Procedure Pass [facility], Ct Scan - [address] [address] Social History Tobacco Use Types Packs/Day Years [...] on file documented as of this encounter Plan of Treatment Not on file documented as of this encounter Visit Diagnoses Not on filedocumented in this encounter Additional Health Concerns Infection Onset Date Last Indicated Resolved Time CoV-Risk Comment:Neg covid 07/20/2023 07/20/2023 07/21/2023 6:[address] CoV-Risk Comment:2 neg covid 08/03/2023 08/03/2023 08/04/2023 6:[address] C. diff 08/03/2023 08/03/2023 09/02/2023 1:23 AM EST documented as of this encounter Care Teams Residential Advisor Relationship Specialty Start Date End Date Enrico Monzon MD [email or web address] PCP - General Family Medicine 05/24/19 Enrico Monzon MD [address] [place] [phone] [email or web address] PCP - General Family Medicine 08/03/23 documented as of this encounter Additional Source Comments The information contained in this document represents components of the legal health record. It is not the complete legal health record.[facility]
--- OUTSIDE RECORDS SUMMARY | 2025-07-19 11:45 | XMS_ITS ---
Author Organization [address] [facility] Address [address] [place] [address] Phone Care Team Providers Care Cosmetology Teacher Name Role Phone Wandy Rivera MANIFEST/ORDER ORGANIZER PRINT ORDERS Primary Care Provider [phone] [facility] Status:Enrolled (Active) Start date:10/22/2024 Related program episode:Program of All-Inclusive Care for the Elderly (Active) Case Team Name Relationship Phone Wandy Rivera MANIFEST/ORDER ORGANIZER PRINT ORDERS(Responsible Staff) Nurse Yaron titioner [phone] Continued Care and Services Coordination
--- OUTSIDE RECORDS SUMMARY | 2025-07-19 11:45 | XMS_ITS ---
Author Organization [facility] Address [address] [place] [address] Phone Care Team Providers Care Supervisor [employer] Name Role Phone Wandy Rivera NURSE COORDINATOR Primary Care Provider [phone] Program of All-Inclusive Care for the Elderly Status:Enrolled (Active) Start date:01/23/2024 Enrollment date:01/23/2024 Related social drivers of health:Housing Instability, Financial Risk, Transportation, Social Isolation, Food Risk Related service episodes:[facility] (Active) Overview This episode will track [facility] documentation. Case Team Name Relationship Phone Wandy Rivera NURSE COORDINATOR Nurse Practitioner Matilde Miranda Recreational Therapist Jo Ann Campbell pushcart peddlerSavings Teller Marybeth lE pushcart peddlerSavings Teller Huong Hammonds ARTIFICIAL MARBLE WORKER Director Of Publications Gary Newman OT Occupational Therapist Andres Muniz RD Dietitian Fang Salgado PT Physical Therapist Storm BEEBEW Filler Picker Maribel Cortez pushcart peddlerSavings Teller Nila Craig Filler Picker Ro POLANCOSW Filler Picker Shyam Dorman Spiritual Care Cadence Moore OT Occupational Therapist Denise Ruiz PROTECTIVE SERVICES CASE WORKER Filler Picker Josh Dietrich PT Physical Therapist Estephania Coleman RN Registered Nurse Tonya Ratliff MD Primary Care Provider Continued Care and Services Coordination
--- OUTSIDE RECORDS SUMMARY | 2025-07-19 11:45 | XMS_ITS | Encounter Summary ---
Author Organization [facility] Address [address] [place] [address] Phone Care Team Providers Care Woodwork Salvage Inspector Name Role Phone Enrico Monzon MD Primary Care Prov ider Enrico Monzon MD Primary Care Prov ider Encounter Details Date Type Department Care Team (Latest Contact Info) Description 02/25/2023 Transcribe Orders [facility] [address] [id number] Krysta Carpio PA [address] [place] [address] Hyponatremia (Primary Dx); Chronic hiccups; Gastroesophageal reflux disease, unspecified whether esophagitis present Social History Tobacco Use Types Packs/Day Years [...] on file documented as of this encounter Results * Lipase (02/25/2023 12:01 PM EDT) LIPASE 27 16 - 63 U/L [facility] Blood 02/25/2023 12:0 1 PM EDT 02/25/2023 12:04 PM EDT us Krysta WIGGINS LAB BLOOD BKR ORDERABLES Fi nal Result Performing Organization Address [facility] Co de Phone Number [address] [address] * C-Reactive Protein (02/25/2023 12:01 PM EDT) C REACTIVE PROTEIN <3.0 0.0 - 4.0 mg/L [facility] Blood 02/25/2023 12:0 1 PM EDT 02/25/2023 12:04 PM EDT us Krysta WIGGINS LAB BLOOD BKR ORDERABLES Fi nal Result Performing Organization Address City/[facility]/ZIP Co de Phone Number [address] [address] * (ABNORMAL) Comprehensive metabolic panel (02/25/2023 12:01 PM EDT) SODIUM 134 133 - 146 mmol/L [facility] POTASSIUM 4.7 3.3 - 5.1 mmol/L [facility] CHLORIDE 96 96 - 108 mmol/L [facility] CO2 31 21 - 35 mmol/L [facility] BUN 10 6 - 19 mg/dL [facility] CREATININE 0.80 0.5 - 1.5 mg/dL [facility] GLUCOSE 167(H) 70 - 99 mg/dL [facility] ALBUMIN 4.2 3.9 - 4.8 g/dL [facility] TOTAL PROTEIN 7.0 6.5 - 8.0 g/dL [facility] CALCIUM 9.2 8.4 - 10.3 mg/dL [facility] ALKALINE PHOSPHATASE 58 39 - 117 U/L [facility] TOTAL BILIRUBIN 0.3 0.0 - 1.2 mg/dL [facility] AST 28 0 - 37 U/L [facility] ALT 14 0 - 40 U/L [facility] GLOBULIN 2.8 1 - 4.8 g/dL [facility] EGFR 92 >59 mL/min/1.7 3m2 [facility] Comment:Estimated glomerular filtration rate calculated using the CKD-EPI refit equation. ANION GAP 12 10 - 20 mmol/L [facility] Blood 02/25/2023 12:0 1 PM EDT 02/25/2023 12:04 PM EDT us Krysta WIGGINS LAB BLOOD BKR ORDERABLES Fi nal Result [facility] [address] [place], [place] [id number] * CBC and differential (02/25/2023 12:01 PM EDT) WBC 6.13 4.00 - 11.00 K/uL [facility] RBC 4.59 3.90 - 5.69 M/uL [facility] HGB 13.6 12.4 - 17.3 g/dL [facility] HCT 41.5 37.0 - 51.0 % [facility] PLT 256 140 - 430 K/uL [facility] MCV 90.4 78.0 - 97.0 fL [facility] MCH 29.6 25.0 - 33.0 pg [facility] MCHC 32.8 32.0 - 36.0 g/dL [facility] RDW 12.8 11.0 - 15.0 % [facility] MPV 9.8 8.4 - 12.8 fl [facility] DIFF METHOD Auto [facility] NEUTS 61.5 43.0 - 75.0 % [facility] LYMPHS 23.8 18.2 - 47.4 % [facility] MONOS 10.4 4.00 - 11.00 % [facility] EOS 3.1 0.0 - 8.0 % [facility] BASOS 1.0 0.0 - 2.0 % [facility] Granulocytes, immature (%) 0.2 0.0 - 0.9 % [facility] ABSOLUTE NEUTS 3.77 1.80 - 7.70 K/uL [facility] ABSOLUTE LYMPHS 1.46 1.00 - 3.10 K/uL [facility] ABSOLUTE MONOS 0.64 0.20 - 0.80 K/uL [facility] ABSOLUTE EOS 0.19 0.00 - 0.80 K/uL [facility] ABSOLUTE BASOS 0.06 0.00 - 0.09 K/uL [facility] Granulocytes, immature 0.01 0.00 - 0.05 K/uL [facility] Blood 02/25/2023 12:0 1 PM EDT 02/25/2023 12:04 PM EDT us Krysta WIGGINS LAB BLOOD BKR ORDERABLES Fi nal Result Performing Organization Address City/State/[facility] Co de Phone Number [facility] [address] [place] [address] documented in this encounter Visit Diagnoses Diagnosis Hyponatremia- Primary Hyposmolality and/or hyponatremia Chronic hiccups Gastroesophageal reflux disease, unspecified whether esophagitis present documented in this encounter Additional Health Concerns Infection Onset Date Last Indicated Resolved Time CoV-Risk Comment:Neg covid 07/20/2023 07/20/2023 07/21/2023 6:[address] CoV-Risk Comment:2 neg covid 08/03/2023 08/03/2023 08/04/2023 6:[address] C. diff 08/03/2023 08/03/2023 09/02/2023 1:23 AM EST documented as of this encounter Care Teams Woodwork Salvage Inspector Relationship Specialty Start Date End Date Enrico Monzon MD [phone] (work) [email or web address] PCP - General Family Medicine 05/24/19 Enrico Monzon MD [address] [place] [address] [email or web address] PCP - General Family Medicine 08/03/23 documented as of this encounter Additional Source Comments The information contained in this document represents components of the legal health record. It is not the complete legal health record.[facility]
--- OUTSIDE RECORDS SUMMARY | 2025-07-19 11:45 | XMS_ITS | Encounter Summary ---
Author Organization [facility] Address [address] [place] [address] Phone Care Team Providers Care President Financial Institution Name Role Phone Enrico Monzon MD Primary Care Prov ider Encounter Details Date Type Department Care Team (Late st Contact Info) Description 08/03/2023 Procedure Pass [facility], Ct Scan - [facility] [address] [place] [address] Social History Tobacco Use Types Packs/Day Years [...] 08/06/2023 10:00 AM Marybeth Saez RN * [place] Suicide Severity Rating Scale (Screener/Recent Self-Report) Question [...] documented as of this encounter Care Teams President Financial Institution Relationship Specialty Start Date End Date Enrico Monzon MD [address] [place] [address] [email or web address] PCP - General Family Medicine 08/03/23 documented as of this encounter Additional Source Comments The information contained in this document represents components of the legal health record. It is not the complete legal health record.[facility]
--- OUTSIDE RECORDS SUMMARY | 2025-07-19 11:45 | XMS_ITS | Encounter Summary ---
Author Organization [facility] Address [address] [place] [address] Phone Care Team Providers Care Automobile Spring Repairer Name Role Phone Enrico Monzon MD Primary Care Prov ider Encounter Details Date Type Department Care Team (Late st Contact Info) Description 08/03/2023 Procedure Pass [facility] [address] [place] [address] Social History Tobacco Use Types Packs/Day Years [...] 08/06/2023 10:00 AM Marybeth Saez RN * [place] Suicide Severity Rating Scale (Screener/Recent Self-Report) Question [...] documented as of this encounter Care Teams Automobile Spring Repairer Relationship Specialty Start Date End Date Enrico Monzon MD [address] [place] [address] [email or web address] PCP - General Family Medicine 08/03/23 documented as of this encounter Additional Source Comments The information contained in this document represents components of the legal health record. It is not the complete legal health record.[facility]
--- OUTSIDE RECORDS SUMMARY | 2025-07-19 11:45 | XMS_ITS | Encounter Summary ---
Author Organization [facility] Address [address] [place] [address] Phone Care Team Providers Care Shuttle Veneering Supervisor Name Role Phone Enrico Monzon MD Primary Care Prov ider Enrico Monzon MD Primary Care Prov ider Encounter Details Date Type Department Care Team (Late st Contact Info) Description 07/30/2020 Procedure Pass [facility], Ct Scan - [address] [address] Social History Tobacco Use Types Packs/Day Years [...] Date of Assessment Author No Risk Indicated 07/30/2020 5:34 PM Ana Cristina Orantes RN * [place] Suicide Severity Rating Scale (Screener/Recent Self-Report) Question Answer Date of Assessment Author 1. Wish to be (Past 1 Month) No 020 5:34 PM EST Ana Cristina Huang RN 2. Non-Specific Active Suici adirano Thoughts (Past 1 Month) No 07/30/2020 5:34 PM EST Tanner Huang, ROGELIO 6. Suicidal Behavior (Lifetime) No 0 5:34 PM EST Ana Cristina Huang, ROGELIO documented as of this encounter Plan of Treatment Not on file documented as of this encounter Visit Diagnoses Not on filedocumented in this encounter Additional Health Concerns Infection Onset Date Last Indicated Resolved Time CoV-Risk Comment:Per note documentation 07/31/2020 07/31/2020 0 11:32 AM EST CoV-Risk Comment:Neg covid 07/20/2023 07/20/2023 07/21/2023 6:[address] CoV-Risk Comment:2 neg covid 08/03/2023 08/03/2023 08/04/2023 6:[address] C. diff 08/03/2023 08/03/2023 09/02/2023 1:23 AM EST documented as of this encounter Care Teams Shuttle Veneering Supervisor Relationship Specialty Start Date End Date Enrico Monzon MD [email or web address] PCP - General Family Medicine 05/24/19 Enrico Monzon MD [address] [place] [address] [email or web address] PCP - General Family Medicine 08/03/23 documented as of this encounter Additional Source Comments The information contained in this document represents components of the legal health record. It is not the complete legal health record.[facility]
--- OUTSIDE RECORDS SUMMARY | 2025-07-19 11:45 | XMS_ITS | Encounter Summary ---
Author Organization [facility] Address [address] [place] [address] Phone Care Team Providers Care Mover Helper Name Role Phone Enrico Monzon MD Primary Care Prov ider Encounter Details Date Type Department Care Team (Late st Contact Info) Description 08/03/2023 Procedure Pass [facility], Ct Scan - [facility] [address] [place] [address] Social History Tobacco Use Types Packs/Day Years [...] 08/06/2023 10:00 AM Marybeth Saez RN * [place] Suicide Severity Rating Scale (Screener/Recent Self-Report) Question [...] documented as of this encounter Care Teams Mover Helper Relationship Specialty Start Date End Date Enrico Monzon MD [address] [place] [address] [email or web address] PCP - General Family Medicine 08/03/23 documented as of this encounter Additional Source Comments The information contained in this document represents components of the legal health record. It is not the complete legal health record.[facility]
--- OUTSIDE RECORDS SUMMARY | 2025-07-19 11:45 | XMS_ITS | Encounter Summary ---
Author Organization [facility] Address [address] [place] [address] Phone Care Team Providers Care Washer Repairman Name Role Phone Enrico Monzon MD Primary Care Prov ider Enrico Monzon MD Primary Care Prov ider Encounter Details Date Type Department Care Team (Late st Contact Info) Description 07/16/2023 Procedure Pass [facility], Ct Scan - [address] [address] Social History Tobacco Use Types Packs/Day Years [...] Date of Assessment Author No Risk Indicated 07/16/2023 5:36 PM Maryellen Starkey RN * [place] Suicide Severity Rating Scale (Screener/Recent Self-Report) Question Answer Date of Assessment Author 1. Wish to be (Past 1 Month) No 023 5:36 PM Maryellen Starkey RN 2. Non-Specific Active Suici adriano Thoughts (Past 1 Month) No 07/16/2023 5:36 PM Anastasia Starkey RN 6. Suicidal Behavior (Lifetime) No 5:36 PM Maryellen Starkey RN documented as of this encounter Plan [...] documented as of this encounter Care Teams Washer Repairman Relationship Specialty Start Date End Date Enrico Monzon MD PCP - General Family Medicine 05/24/19 Enrico Monzon MD [address] [place] [address] [email or web address] PCP - General Family Medicine 08/03/23 documented as of this encounter Additional Source Comments The information contained in this document represents components of the legal health record. It is not the complete legal health record.[facility]
--- OUTSIDE RECORDS SUMMARY | 2025-07-19 11:45 | XMS_ITS | Encounter Summary ---
Author Organization [facility] Address [address] [place] [address] Phone Care Team Providers Care Handtools Repairer Name Role Phone Enrico Monzon MD Primary Care Prov ider Enrico Monzon MD Primary Care Prov ider Encounter Details Date Type Department Care Team (Late st Contact Info) Description 06/07/2020 Procedure Pass [facility], Ct Scan - [address] [address] Social History Tobacco Use Types Packs/Day Years [...] documented as of this encounter Care Teams Handtools Repairer Relationship Specialty Start Date End Date Enrico Monzon MD [email or web address] PCP - General Family Medicine 05/24/19 Enrico Monzon MD [address] [place] [phone] [email or web address] PCP - General Family Medicine 08/03/23 documented as of this encounter Additional Source Comments The information contained in this document represents components of the legal health record. It is not the complete legal health record.[facility]
--- OUTSIDE RECORDS SUMMARY | 2025-07-19 11:46 | XMS_ITS | Encounter Summary ---
Author Organization [facility] Address [address] [place] [address] Care Team Providers Care Electric Shaver Mechanic Name Role Phone Wandy Rivera CORPORATE ETHICS OFFICER Primary Care Provider [phone] Encounter Details Date Type Department Care Team (Late st Contact Info) Description 01/02/2025 Health Home Core Service [facility] [address] [place] [phone] Phan Castillo NP [address] [address] Social History Tobacco Use Types Packs/Day Years [...] [facility] [place] [facility] [address] [place] [address] 07/24/2025 9:00 AM EST PACE Attendance/Day Center [facility] Day [facility] [address] [place] [address] 07/25/2025 10:30 AM EST PACE Assessment [facility] Clinic [address] [place] [address] Wandy Rivera NP [address] [address] 07/25/2025 1:15 PM EST Office Visit [facility] Hematology Oncology [address] [place] [address] Rene Kurtz MD [address] [place] [address] 07/26/2025 9:00 AM EST [facility] Attend[place] [facility] [place] [facility] [address] [place] [phone] 07/27/2025 12:00 PM EST PACE Home Care / [facility] Home [place] [facility] [place] [facility] [address] [place] [phone] Collette Villarreal 07/28/2025 9:00 AM EST PACE Attendance/Day Center [facility] [address] [place] [address] 07/31/2025 9:00 AM EST PACE Attendance[place] [facility] [place] [facility] [address] [place] [address] 08/01/2025 12:30 PM EST PACE Home Care / PACE Home Visit [facility] In Home Nursing and Aide Services [address] [place] [address] Nurse, [place] 08/02/2025 9:00 AM EST [facility] Attendance[facility] [facility] [place] [facility] [address] [place] [address] 08/03/2025 12:00 PM EST PACE Home Care / [place] [facility] [place] [facility] [address] [place] [phone] Nurse, Collette 08/04/2025 9:00 AM EST [place] Att[place] [facility] [place] [facility] [address] [place] [address] 08/07/2025 9:00 AM EST [place] Att[place] [facility] [place] [facility] [address] [place] [address] 08/08/2025 12:30 PM EST PACE Home Care / [place] [facility] [place] [facility] [address] [place] [phone] Nurse, Collette 08/09/2025 9:00 AM EST [facility] Att[place] [facility] [place] [facility] [address] [place] [phone] 08/10/2025 12:00 PM EST PACE Home Care / [place] [facility] [place] [facility] [address] [place] [phone] NurseCollette 08/11/2025 9:00 AM EST [place] Attend[place] [facility] [place] [facility] [address] [place] [address] 08/14/2025 9:00 AM EST [facility] Att[facility] [facility] [place] [facility] [address] [place] [phone] 08/15/2025 12:30 PM EST PACE Home Care / [place] [facility] [place] [facility] [address] [place] [phone] NurseCollette 08/16/2025 9:00 AM EST [place] Attend[place] [facility] [place] [facility] [address] [place] [address] 08/17/2025 12:00 PM EST PACE Home Care / [place] [facility] [place] [facility] [address] [place] [address] Nurse, Collette 08/18/2025 9:00 AM EST [place] Attend[place] [facility] [place] [facility] [address] [place] [address] 08/21/2025 9:00 AM EST [facility] Attend[place] [facility] [place] [facility] [address] [place] [address] 08/22/2025 12:30 PM EST PACE Home Care / [place] [facility] [place] [facility] [address] [place] [phone] Nurse, Collette 08/23/2025 9:00 AM EST [place] Att[place] [facility] [place] [facility] [address] [place] [address] 08/24/2025 12:00 PM EST PACE Home Care / [place] [facility] [place] [facility] [address] [place] [address] NurseCollette 08/25/2025 9:00 AM EST [facility] Att[place] [facility] [place] [facility] [address] [place] [address] 08/28/2025 9:00 AM EST [place] Att[place] [facility] [place] [facility] [address] [place] [address] 08/29/2025 12:30 PM EST PACE Home Care / [place] [facility] [place] [facility] [address] [place] [address] NurseCollette 08/30/2025 9:00 AM EST [place] Att[place] [facility] [place] [facility] [address] [place] [address] 08/31/2025 12:00 PM EST PACE Home Care / [place] [facility] [place] [facility] [address] [place] [address] Nurse, Collette 09/01/2025 9:00 AM EST [place] Attend[place] [facility] [place] [facility] [address] [place] [address] 09/04/2025 9:00 AM EST [place] Attendance[place] [facility] [place] [facility] [address] [place] [address] 09/05/2025 12:30 PM EST PACE Home Care / [place] [facility] [place] [facility] [address] [place] [phone] Nurse, Collette 09/06/2025 9:00 AM EST [place] Att[place] [facility] [place] [facility] [address] [place] [phone] 09/07/2025 12:00 PM EST PACE Home Care / [place] [facility] [place] [facility] [address] [place] [phone] Nurse, Collette 09/08/2025 9:00 AM EST [place] Attendance[place] [facility] [place] [facility] [address] [place] [address] 09/11/2025 9:00 AM EST [place] Att[place] [facility] [place] [facility] [address] [place] [phone] 09/12/2025 12:30 PM EST PACE Home Care / [place] [facility] [place] [facility] [address] [place] [phone] Nurse, Collette 09/13/2025 9:00 AM EST [place] Attend[place] [facility] [place] [facility] [address] [place] [address] 09/14/2025 12:00 PM EST PACE Home Care / [place] [facility] [place] [facility] [address] [place] [address] NurseCollette 09/15/2025 9:00 AM EST [place] Attendance[place] [facility] [place] [facility] [address] [place] [address] 09/18/2025 9:00 AM EST [place] Attendance[place] [facility] [place] [facility] [address] [place] [address] 09/20/2025 9:00 AM EST [place] Attendance[place] [facility] [place] [facility] [address] [place] [address] 09/22/2025 9:00 AM EST [place] Attendance[place] [facility] [place] [facility] [address] [place] [address] 09/25/2025 9:00 AM EST [place] Attendance[place] [facility] [place] [facility] [address] [place] [phone] 09/27/2025 9:00 AM EST [place] Attend[place] [facility] [place] [facility] [address] [place] [address] 09/29/2025 9:00 AM EST [place] Attend[place] [facility] [place] [facility] [address] [place] [phone] 10/02/2025 9:00 AM EST [place] Attend[place] [facility] [place] [facility] [address] [place] [address] 10/04/2025 9:00 AM EST [place] Attend[place] [facility] [place] [facility] [address] [place] [address] 10/09/2025 9:00 AM EST [place] Attend[place] [facility] [place] [facility] [address] [place] [address] 10/16/2025 9:00 AM EST [place] Attend[place] [facility] [place] [facility] [address] [place] [address] 10/23/2025 9:00 AM EST [place] Attend[place] [facility] [place] [facility] [address] [place] [address] 10/30/2025 9:00 AM EDT [facility] Attendance[facility] [facility] [place] [facility] [address] [place] [address] 11/06/2025 9:00 AM EDT [place] Attendance[place] [facility] [place] [facility] [address] [place] [phone] 11/13/2025 9:00 AM EDT [place] Attendance[place] [facility] [place] [facility] [address] [place] [address] 11/20/2025 9:00 AM EDT [place] Attend[place] [facility] [place] [facility] [address] [place] [phone] 11/27/2025 9:00 AM EDT [place] Attend[place] [facility] [place] [facility] [address] [place] [phone] 12/04/2025 9:00 AM EDT [place] Att[place] [facility] [place] [facility] [address] [place] [phone] 12/11/2025 9:00 AM EDT [place] Att[place] [facility] [place] [facility] [address] [place] [address] 12/18/2025 9:00 AM EDT [place] Att[place] [facility] [place] [facility] [address] [place] [phone] 12/25/2025 9:00 AM EDT [place] Att[place] [facility] [place] [facility] [address] [place] [phone] 01/01/2026 9:00 AM EDT [facility] Att[place] [facility] [place] [facility] [address] [place] [address] 01/08/2026 9:00 AM EDT [place] Attendance[place] [facility] [place] [facility] [address] [place] [address] 01/15/2026 9:00 AM EDT [place] Attend[place] [facility] [place] [facility] [address] [place] [address] 01/22/2026 9:00 AM EDT [place] Att[place] [facility] [place] [facility] [address] [place] [address] 01/29/2026 9:00 AM EDT [place] Attendance[facility] [facility] [place] [facility] [address] [place] [address] 02/05/2026 9:00 AM EDT [place] Attend[place] [facility] [place] [facility] [address] [place] [address] 02/12/2026 9:00 AM EDT [place] Att[place] [facility] [place] [facility] [address] [place] [phone] 02/19/2026 9:00 AM EDT [place] Att[place] [facility] [place] [facility] [address] [place] [address] 02/26/2026 9:00 AM EDT [place] Att[place] [facility] [place] [facility] [address] [place] [address] 03/05/2026 9:00 AM EDT [place] Att[place] [facility] [place] [facility] [address] [place] [address] 03/12/2026 9:00 AM EDT [place] Att[place] [facility] [place] [facility] [address] [place] [address] 03/19/2026 9:00 AM EDT [facility] Attend[facility] [place] [facility] [address] [place] [phone] 03/26/2026 9:00 AM EDT PACE Attendance/Day Center [facility] Day Center [address] [place] [phone] 04/02/2026 9:00 AM EDT PACE Attendance/Day Center [facility] Day Center [address] [place] [phone] 04/09/2026 9:00 AM EDT PACE Attendance/Day Center [facility] Day [address] [address] 04/16/2026 9:00 AM EDT PACE Attendance/Day Center [address] [address] 04/23/2026 9:00 AM EDT PACE Attendance/Day Center [address] [address] 06/26/2026 11:15 AM EST Office Visit Pulmonology - [address] [place] [phone] Azul Cohen MD [address] [place] [phone] documented as of this encounter Visit Diagnoses Not on filedocumented in this encounter Care Teams Electric Shaver Mechanic Relationship Specialty Start Date End Date Wandy Rivera NP [address] [place] [address] PCP - General Family Medicine 06/14/24 documented as of this encounter
--- OUTSIDE RECORDS SUMMARY | 2025-07-19 11:46 | XMS_ITS | Encounter Summary ---
Author Organization [facility] Address [address] [place] [address] Phone Care Team Providers Care Wharf Tender Name Role Phone Enrico Monzon MD Primary Care Prov ider Enrico Monzon MD Primary Care Prov ider Encounter Details Date Type Department Care Team (Late st Contact Info) Description 12/31/2021 Procedure Pass [facility], Ct Scan - [address] [address] Social History Tobacco Use Types Packs/Day Years [...] Date of Assessment Author No Risk Indicated 12/31/2021 10:22 AM EDT Jacki Beltran RN * [place] Suicide Severity Rating Scale (Screener/Recent Self-Report) Question Answer Date of Assessment Author 1. Wish to be (Past 1 Month) No 12/31/2021 10:22 AM EDStefany Gould cie, RN 2. Non-Specific Active Suicidal Thoughts (Past 1 Month) No 12/31/2021 10:22 AM EDStefany Gould cie, ROGELIO 6. Suicidal Behavior (Lifetime) No 12/31/2021 10:22 AM EDStefany Gould cie, RN documented as of this encounter Plan [...] documented as of this encounter Care Teams Wharf Tender Relationship Specialty Start Date End Date Enrico Monzon MD PCP - General Family Medicine 05/24/19 Enrico Monzon MD [address] [place] [address] [email or web address] PCP - General Family Medicine 08/03/23 documented as of this encounter Additional Source Comments The information contained in this document represents components of the legal health record. It is not the complete legal health record.[facility]
--- OUTSIDE RECORDS SUMMARY | 2025-07-19 11:46 | XMS_ITS | Encounter Summary ---
Author Organization [facility] Address [address] [place] [address] Phone Care Team Providers Care Information Consultant Name Role Phone Enrico Monzon MD Primary Care Prov ider Enrico Monzon MD Primary Care Prov ider Encounter Details Date Type Department Care Team (Late st Contact Info) Description 05/30/2020 Ancillary Orders [facility],Outside Imaging [address] [place], [place] [phone] System, Provider Not In, [place] [address] Social History Tobacco Use Types Packs/Day Years [...] documented as of this encounter Results * XR Chest Outside (No Interpretation) (05/17/2020 12:00 AM EDT) Narrative SYSTEMGENERATED, DOCUMENTATION - 05/30/2020 1:52 PM EDT This study is for PACS storage only and not for interpretation. us Provider Not In System PhD IMG OUTSIDE IMAGING W /OUT INTERPRETATION Final Result documented in this encounter Visit Diagnoses Not on filedocumented [...] documented as of this encounter Care Teams Information Consultant Relationship Specialty Start Date End Date Enrico Monzon MD PCP - General Family Medicine 05/24/19 Enrico Monzon MD [address] [place] [phone] [email or web address] PCP - General Family Medicine 08/03/23 documented as of this encounter Additional Source Comments The information contained in this document represents components of the legal health record. It is not the complete legal health record.[facility]
--- OUTSIDE RECORDS SUMMARY | 2025-07-19 11:46 | XMS_ITS | Encounter Summary ---
Author Organization [facility] Address [address] [place] [address] Phone Care Team Providers Care Punch Out Crew Member Name Role Phone Enrico Monzon MD Primary Care Prov ider Enrico Monzon MD Primary Care Prov ider Encounter Details Date Type Department Care Team (Late st Contact Info) Description 06/03/2019 Procedure Pass [facility] Endoscopy Admitting Dept Virtual Department [address] [place] [address] Social History Tobacco Use Types Packs/Day Years [...] documented as of this encounter Functional Status documented as of this encounter Plan of [...] documented as of this encounter Care Teams Punch Out Crew Member Relationship Specialty Start Date End Date Enrico Monzon MD [email or web address] PCP - General Family Medicine 05/24/19 Enrico Monzon MD [address] [place] [phone] [email or web address] PCP - General Family Medicine 08/03/23 documented as of this encounter Additional Source Comments The information contained in this document represents components of the legal health record. It is not the complete legal health record.[facility]
--- OUTSIDE RECORDS SUMMARY | 2025-07-19 11:46 | XMS_ITS | Encounter Summary ---
Author Organization [facility] Address [address] [place] [address] Phone Care Team Providers Care Space Scheduler Name Role Phone Enrico Monzon MD Primary Care Prov ider Enrico Monzon MD Primary Care Prov ider Encounter Details Date Type Department Care Team (Late st Contact Info) Description 12/31/2021 Procedure Pass [facility], Ct Scan - [address] [address] Social History Tobacco Use Types Packs/Day Years [...] 10:22 AM EDT Jacki Beltran RN * [place] Suicide Severity Rating Scale (Screener/Recent Self-Report) Question Answer Date of Assessment Author 1. Wish to be (Past 1 Month) No 12/31/2021 10:22 AM EDStefany Guold cie, RN 2. Non-Specific Active Suicidal Thoughts [...] documented as of this encounter Care Teams Space Scheduler Relationship Specialty Start Date End Date Enrico Monzon MD PCP - General Family Medicine 05/24/19 Enrico Monzon MD [address] [place] [address] [email or web address] PCP - General Family Medicine 08/03/23 documented as of this encounter Additional Source Comments The information contained in this document represents components of the legal health record. It is not the complete legal health record.[facility]
--- OUTSIDE RECORDS SUMMARY | 2025-07-19 11:46 | XMS_ITS | Encounter Summary ---
Author Organization [facility] Address [address] [place] [address] Phone Care Team Providers Care Oncology Radiation Physician Name Role Phone Enrico Monzon MD Primary Care Prov ider Encounter Details Date Type Department Care Team (Late st Contact Info) Description 01/22/2025 Procedure Pass [facility], Ct Scan - [facility] [address] [place] [address] Social History Tobacco Use Types Packs/Day Years [...] with a working camera? Not on file Intimate Partner Violence Answer Date R ecorded Are you denied basic needs s uch as food, clothing, or medical care? No 07/26/2024 In the past 12 months have y ou been in a relationship with a person who hurts, threatens, or tries to control you? No 07/26/2024 Are you denied basic needs s uch as food, clothing, or medical care? No 07/26/2024 In the past 12 months have y ou been in a relationship with a person who hurts, threatens, or tries to control you? No 07/26/2024 Sex and Gender Information Value Date Recorded Sex Assigned at Male 12/31/2021 10:22 AM EDT Legal Sex Male 10:07 PM EDT Gender Identity Male 12/31/2021 10:22 AM EDT Sexual Orientation Not on file documented as of this encounter Plan of Treatment Not on file documented as of this encounter Visit Diagnoses Not on filedocumented in this encounter Care Teams Oncology Radiation Physician Relationship Specialty Start Date End Date Enrico Monzon MD [address] [place] [phone] [email or web address] PCP - General Family Medicine 08/03/23 documented as of this encounter Additional Source Comments The information contained in this document represents components of the legal health record. It is not the complete legal health record.[facility]
--- OUTSIDE RECORDS SUMMARY | 2025-07-19 11:46 | XMS_ITS | Encounter Summary ---
Author Organization [facility] Address [address] [place] [address] Care Team Providers Care Validation Consultant Name Role Phone Wandy SYNCHRO ASSEMBLER Primary Care Provider [phone] Encounter Details Date Type Department Care Team (Late st Contact Info) Description 01/02/2025 Health Home Core Service [facility] [address] [place] [phone] Chery Cesar RN Social History Tobacco Use Types Packs/Day Years [...] 07/21/2025 9:00 AM EST PACE Attendance[facility] [place] [facility] [address] [place] [address] 07/24/2025 9:00 AM EST PACE Attendance/[facility] [place] [facility] [address] [place] [address] 07/25/2025 10:30 AM EST P[facility] Assessment [facility] Clinic [address] [place] [address] Wandy Rivera NP [address] [address] 07/25/2025 1:15 PM EST Office Visit [facility] Hematology Oncology [address] [place] [address] Rene Kurtz MD [address] [place] [address] 07/26/2025 9:00 AM EST PACE Attendance/[facility] [place] [facility] [address] [place] [phone] 07/27/2025 12:00 PM EST PACE Home Care / [facility] [place] [facility] [address] [place] [address] Collette Villarreal 07/28/2025 9:00 AM EST PACE Attendance/Day [facility] [place] [facility] [address] [place] [address] 07/31/2025 9:00 AM EST PACE Attendance[facility] [place] [facility] [facility] [address] [place] [address] 08/01/2025 12:30 PM EST PACE Home Care / [facility] [place] [facility] [address] [place] [address] Collette Villarreal 08/02/2025 9:00 AM EST PACE Attendance/[place] [facility] [place] [facility] [address] [place] [address] 08/03/2025 12:00 PM EST PACE Home Care / PACE Home Visit [facility] [place] [facility] [address] [place] [phone] Nurse, Collette 08/04/2025 9:00 AM EST PACE Attendance/[place] [facility] [place] [facility] [address] [place] [address] 08/07/2025 9:00 AM EST PACE Attendance/[place] [facility] [place] [facility] [address] [place] [phone] 08/08/2025 12:30 PM EST PACE Home Care / PACE Home Visit [facility] [place] [facility] [address] [place] [phone] Nurse, Collette 08/09/2025 9:00 AM EST PACE Attendance/[place] [facility] [place] [address] [place] [phone] 08/10/2025 12:00 PM EST PACE Home Care / PACE Home Visit [facility] [place] [facility] [address] [place] [phone] Nurse, Collette 08/11/2025 9:00 AM EST PACE Attendance/Day Center [facility] [place] [facility] [address] [place] [phone] 08/14/2025 9:00 AM EST PACE Attendance/[place] [facility] [place] [facility] [address] [place] [phone] 08/15/2025 12:30 PM EST PACE Home Care / PACE Home Visit [facility] [place] [facility] [address] [place] [phone] NurseCollette 08/16/2025 9:00 AM EST PACE Attendance/[place] [facility] [place] [facility] [address] [place] [phone] 08/17/2025 12:00 PM EST PACE Home Care / PACE Home Visit [facility] [place] [facility] [address] [place] [address] Nurse, Collette 08/18/2025 9:00 AM EST PACE Attendance/[place] [facility] [place] [facility] [address] [place] [address] 08/21/2025 9:00 AM EST PACE Attendance/[place] [facility] [place] [address] [place] [address] 08/22/2025 12:30 PM EST PACE Home Care / PACE Home Visit [facility] [place] [facility] [address] [place] [address] Nurse, Collette 08/23/2025 9:00 AM EST PACE Attendance/[place] [facility] [place] [facility] [address] [place] [phone] 08/24/2025 12:00 PM EST PACE Home Care / PACE Home Visit [facility] [place] [facility] [address] [place] [phone] Nurse, Collette 08/25/2025 9:00 AM EST PACE Attendance/[place] [facility] [place] [address] [place] [address] 08/28/2025 9:00 AM EST PACE Attendance/[place] [facility] [place] [address] [place] [address] 08/29/2025 12:30 PM EST PACE Home Care / PACE Home Visit [facility] [place] [facility] [address] [place] [phone] NurseCollette 08/30/2025 9:00 AM EST PACE Attendance/[place] [facility] [place] [address] [place] [address] 08/31/2025 12:00 PM EST PACE Home Care / PACE Home Visit [facility] [place] [facility] [address] [place] [address] Nurse, Collette 09/01/2025 9:00 AM EST PACE Attendance/[place] [facility] [place] [address] [place] [address] 09/04/2025 9:00 AM EST PACE Attendance/[place] [facility] [place] [address] [place] [address] 09/05/2025 12:30 PM EST PACE Home Care / PACE Home Visit [facility] [place] [facility] [address] [place] [phone] Nurse, Collette 09/06/2025 9:00 AM EST PACE Attendance/[place] [facility] [place] [facility] [address] [place] [phone] 09/07/2025 12:00 PM EST PACE Home Care / PACE Home Visit [facility] [place] [facility] [address] [place] [phone] Nurse, Collette 09/08/2025 9:00 AM EST PACE Attendance/[place] [facility] [place] [facility] [address] [place] [phone] 09/11/2025 9:00 AM EST PACE Attendance/[place] [facility] [place] [facility] [address] [place] [phone] 09/12/2025 12:30 PM EST PACE Home Care / PACE Home Visit [facility] [place] [facility] [address] [place] [phone] Nurse, Collette 09/13/2025 9:00 AM EST PACE Attendance/[place] [facility] [place] [address] [place] [phone] 09/14/2025 12:00 PM EST PACE Home Care / PACE Home Visit [facility] [place] [facility] [address] [place] [phone] Collette Villarreal 09/15/2025 9:00 AM EST PACE Attendance/Day Center [facility] [place] [facility] [address] [place] [address] 09/18/2025 9:00 AM EST PACE Attendance/[facility] [place] [facility] [address] [place] [address] 09/20/2025 9:00 AM EST PACE Attendance/Day Center [facility] [place] [address] [place] [phone] 09/22/2025 9:00 AM EST PACE Attendance/Day Center [facility] [place] [address] [place] [phone] 09/25/2025 9:00 AM EST PACE Attendance/Day Center [facility] [place] [address] [place] [phone] 09/27/2025 9:00 AM EST PACE Attendance/Day Center [facility] [place] [facility] [address] [place] [phone] 09/29/2025 9:00 AM EST PACE Attendance/Day Center [facility] [place] [facility] [address] [place] [phone] 10/02/2025 9:00 AM EST PACE Attendance/Day Center [facility] [place] [facility] [address] [place] [phone] 10/04/2025 9:00 AM EST PACE Attendance/Day Center [facility] [place] [facility] [address] [place] [phone] 10/09/2025 9:00 AM EST PACE Attendance/Day Center [facility] [place] [facility] [address] [place] [phone] 10/16/2025 9:00 AM EST PACE Attendance/Day Center [facility] [place] [facility] [address] [place] [phone] 10/23/2025 9:00 AM EST PACE Attendance/Day [place] [facility] [place] [address] [place] [address] 10/30/2025 9:00 AM EDT PACE Attendance/Day [place] [facility] [place] [address] [place] [address] 11/06/2025 9:00 AM EDT PACE Attendance/[place] [facility] [place] [address] [place] [address] 11/13/2025 9:00 AM EDT PACE Attendance/[place] [facility] [place] [facility] [address] [place] [phone] 11/20/2025 9:00 AM EDT PACE Attendance/[place] [facility] [place] [facility] [address] [place] [phone] 11/27/2025 9:00 AM EDT PACE Attendance/[place] [facility] [place] [facility] [address] [place] [phone] 12/04/2025 9:00 AM EDT PACE Attendance/[place] [facility] [place] [facility] [address] [place] [phone] 12/11/2025 9:00 AM EDT PACE Attendance/[place] [facility] [place] [facility] [address] [place] [phone] 12/18/2025 9:00 AM EDT PACE Attendance/[place] [facility] [place] [facility] [address] [place] [phone] 12/25/2025 9:00 AM EDT PACE Attendance/[place] [facility] [place] [facility] [address] [place] [phone] 01/01/2026 9:00 AM EDT PACE Attendance/[place] [facility] [place] [facility] [address] [place] [phone] 01/08/2026 9:00 AM EDT PACE Attendance/Day [place] [facility] [place] [facility] [address] [place] [address] 01/15/2026 9:00 AM EDT PACE Attendance/[place] [facility] [place] [facility] [address] [place] [address] 01/22/2026 9:00 AM EDT PACE Attendance/[place] [facility] [place] [facility] [address] [place] [address] 01/29/2026 9:00 AM EDT PACE Attendance/[place] [facility] [place] [facility] [address] [place] [phone] 02/05/2026 9:00 AM EDT PACE Attendance/[place] [facility] [place] [facility] [address] [place] [phone] 02/12/2026 9:00 AM EDT PACE Attendance/[place] [facility] [place] [facility] [address] [place] [phone] 02/19/2026 9:00 AM EDT PACE Attendance/[place] [facility] [place] [facility] [address] [place] [phone] 02/26/2026 9:00 AM EDT PACE Attendance/[place] [facility] [place] [facility] [address] [place] [phone] 03/05/2026 9:00 AM EDT PACE Attendance/[place] [facility] [place] [facility] [address] [place] [address] 03/12/2026 9:00 AM EDT PACE Attendance/[place] [facility] [place] [facility] [facility] [address] [place] [address] 03/19/2026 9:00 AM EDT PACE Attendance/[place] [facility] [place] [facility] [address] [place] [phone] 03/26/2026 9:00 AM EDT PACE Att[facility]ance[facility] [place] [facility] [address] [place] [address] 04/02/2026 9:00 AM EDT PACE Attendance[facility] P[facility] Day Center [address] [place] [phone] 04/09/2026 9:00 AM EDT PACE Attendance/Day Center [facility] PACE Day Center [address] [place] [phone] 04/16/2026 9:00 AM EDT PACE Attendance/Day Center [facility] Day [address] [address] 04/23/2026 9:00 AM EDT PACE Attendance/Day Center [facility] Day [address] [address] 06/26/2026 11:15 AM EST Office Visit Pulmonology - [address] [place] [phone] Azul Cohen MD [address] [place] [phone] documented as of this encounter Visit Diagnoses Not on filedocumented in this encounter Care Teams Validation Consultant Relationship Specialty Start Date End Date Wandy Rivera NP [address] [place] [phone] PCP - General Family Medicine 06/14/24 documented as of this encounter
--- OUTSIDE RECORDS SUMMARY | 2025-07-19 11:46 | XMS_ITS | Encounter Summary ---
Author Organization [facility] Address [address] [place] [address] Care Team Providers Care Insurance Actuary Name Role Phone Wandy Rivera WASH TUB MACHINE OPERATOR Primary Care Provider [phone] Encounter Details Date Type Department Care Team (Late st Contact Info) Description 01/02/2025 Health Home Core Service [facility] [address] [place] [phone] Phan Castillo NP [address] [address] Social History Tobacco Use Types Packs/Day Years [...] [facility] [place] [address] [place] [address] 07/24/2025 9:00 AM EST [facility] Att[facility]ance[facility] P[facility] Day Center [address] [place] [address] 07/25/2025 10:30 AM EST PACE Assessment [facility] PACE Clinic [address] [place] [address] Wandy Rivera NP [address] [address] 07/25/2025 1:15 PM EST Office Visit [facility] Hematology Oncology [address] [place] [address] Rene Kurtz MD [address] [place] [address] 07/26/2025 9:00 AM EST PACE Attendance/[place] [facility] [place] [address] [place] [phone] 07/27/2025 12:00 PM EST PACE Home Care / PACE Home Visit [facility] [place] [facility] [address] [place] [phone] Collette Villarreal 07/28/2025 9:00 AM EST PACE Attendance/Day Center [facility] [employer] [place] [facility] [address] [place] [address] 07/31/2025 9:00 AM EST PACE Attendance/[place] [facility] [place] [address] [place] [address] 08/01/2025 12:30 PM EST PACE Home Care / [facility] In Home Nursing and Aide Services [address] [place] [address] Nurse, Collette 08/02/2025 9:00 AM EST PACE Attendance/[place] [facility] [place] [facility] [address] [place] [address] 08/03/2025 12:00 PM EST PACE Home Care / PACE Home Visit [facility] [place] [facility] [address] [place] [phone] Nurse, Collette 08/04/2025 9:00 AM EST PACE Attendance/[place] [facility] [place] [facility] [address] [place] [address] 08/07/2025 9:00 AM EST PACE Attendance/[place] [facility] [place] [address] [place] [address] 08/08/2025 12:30 PM EST PACE Home Care / PACE Home Visit [facility] [place] [facility] [address] [place] [phone] Nurse, Collette 08/09/2025 9:00 AM EST PACE Attendance[facility] [facility] [place] [facility] [address] [place] [phone] 08/10/2025 12:00 PM EST PACE Home Care / PACE Home Visit [facility] [place] [facility] [address] [place] [phone] NurseCollette 08/11/2025 9:00 AM EST PACE Attendance/[place] [facility] [place] [address] [place] [address] 08/14/2025 9:00 AM EST PACE Attendance/[place] [facility] [place] [facility] [address] [place] [phone] 08/15/2025 12:30 PM EST PACE Home Care / PACE Home Visit [facility] [place] [facility] [address] [place] [phone] NurseCollette 08/16/2025 9:00 AM EST PACE Attendance/[place] [facility] [place] [address] [place] [address] 08/17/2025 12:00 PM EST PACE Home Care / PACE Home Visit [facility] [place] [facility] [address] [place] [address] Nurse, Collette 08/18/2025 9:00 AM EST PACE Attendance/[place] [facility] [place] [facility] [address] [place] [address] 08/21/2025 9:00 AM EST PACE Attendance/[place] [facility] [place] [address] [place] [address] 08/22/2025 12:30 PM EST PACE Home Care / PACE Home Visit [facility] [place] [facility] [address] [place] [phone] Nurse, Collette 08/23/2025 9:00 AM EST PACE Attendance/[place] [facility] [place] [address] [place] [address] 08/24/2025 12:00 PM EST PACE Home Care / PACE Home Visit [facility] [place] [facility] [address] [place] [address] NurseCollette 08/25/2025 9:00 AM EST PACE Attendance/[place] [facility] [place] [address] [place] [address] 08/28/2025 9:00 AM EST PACE Attendance/[place] [facility] [place] [address] [place] [address] 08/29/2025 12:30 PM EST PACE Home Care / PACE Home Visit [facility] [place] [facility] [address] [place] [address] NurseCollette 08/30/2025 9:00 AM EST PACE Attendance/[place] [facility] [place] [address] [place] [address] 08/31/2025 12:00 PM EST PACE Home Care / PACE Home Visit [facility] [place] [facility] [address] [place] [address] Nurse, Collette 09/01/2025 9:00 AM EST PACE Attendance/[place] [facility] [place] [address] [place] [address] 09/04/2025 9:00 AM EST PACE Attendance/[place] [facility] [place] [address] [place] [address] 09/05/2025 12:30 PM EST PACE Home Care / PACE Home Visit [facility] [place] [facility] [address] [place] [phone] Nurse, Collette 09/06/2025 9:00 AM EST PACE Attendance/[place] [facility] [place] [address] [place] [phone] 09/07/2025 12:00 PM EST PACE Home Care / PACE Home Visit [facility] [place] [facility] [address] [place] [phone] Nurse, Collette 09/08/2025 9:00 AM EST PACE Attendance/[place] [facility] [place] [address] [place] [address] 09/11/2025 9:00 AM EST PACE Attendance/[place] [facility] [place] [address] [place] [phone] 09/12/2025 12:30 PM EST PACE Home Care / PACE Home Visit [facility] [place] [facility] [address] [place] [phone] Nurse, Collette 09/13/2025 9:00 AM EST PACE Attendance/[place] [facility] [place] [address] [place] [address] 09/14/2025 12:00 PM EST PACE Home Care / PACE Home Visit [facility] [place] [facility] [address] [place] [address] NurseCollette 09/15/2025 9:00 AM EST PACE Attendance/[place] [facility] [place] [address] [place] [address] 09/18/2025 9:00 AM EST PACE Attendance/[place] [facility] [place] [address] [place] [address] 09/20/2025 9:00 AM EST PACE Attendance/[place] [facility] [place] [address] [place] [address] 09/22/2025 9:00 AM EST PACE Attendance/[place] [facility] [place] [address] [place] [address] 09/25/2025 9:00 AM EST PACE Attendance/[place] [facility] [place] [address] [place] [phone] 09/27/2025 9:00 AM EST PACE Attendance/[place] [facility] [place] [address] [place] [address] 09/29/2025 9:00 AM EST PACE Attendance/[place] [facility] [place] [facility] [address] [place] [phone] 10/02/2025 9:00 AM EST PACE Attendance/[place] [facility] [place] [address] [place] [address] 10/04/2025 9:00 AM EST PACE Attendance/[place] [facility] [place] [address] [place] [address] 10/09/2025 9:00 AM EST PACE Attendance/[place] [facility] [place] [address] [place] [address] 10/16/2025 9:00 AM EST PACE Attendance/[place] [facility] [place] [address] [place] [address] 10/23/2025 9:00 AM EST PACE Attendance/[place] [facility] [place] [address] [place] [address] 10/30/2025 9:00 AM EDT PACE Attendance/[place] [facility] [place] [address] [place] [address] 11/06/2025 9:00 AM EDT PACE Attendance/[place] [facility] [place] [address] [place] [phone] 11/13/2025 9:00 AM EDT PACE Attendance/[place] [facility] [place] [address] [place] [address] 11/20/2025 9:00 AM EDT PACE Attendance/[place] [facility] [place] [address] [place] [phone] 11/27/2025 9:00 AM EDT PACE Attendance/[place] [facility] [place] [facility] [address] [place] [phone] 12/04/2025 9:00 AM EDT PACE Attendance/[place] [facility] [place] [facility] [address] [place] [phone] 12/11/2025 9:00 AM EDT PACE Attendance/[place] [facility] [place] [address] [place] [address] 12/18/2025 9:00 AM EDT PACE Attendance/[place] [facility] [place] [facility] [address] [place] [phone] 12/25/2025 9:00 AM EDT PACE Attendance/[place] [facility] [place] [facility] [address] [place] [phone] 01/01/2026 9:00 AM EDT PACE Attendance/[place] [facility] [place] [address] [place] [address] 01/08/2026 9:00 AM EDT PACE Attendance/[place] [facility] [place] [address] [place] [address] 01/15/2026 9:00 AM EDT PACE Attendance/[place] [facility] [place] [address] [place] [address] 01/22/2026 9:00 AM EDT PACE Attendance/[place] [facility] [place] [address] [place] [address] 01/29/2026 9:00 AM EDT PACE Attendance/[place] [facility] [place] [address] [place] [address] 02/05/2026 9:00 AM EDT PACE Attendance/[place] [facility] [place] [address] [place] [address] 02/12/2026 9:00 AM EDT PACE Attendance/[place] [facility] [place] [address] [place] [phone] 02/19/2026 9:00 AM EDT PACE Attendance/[place] [facility] [place] [address] [place] [address] 02/26/2026 9:00 AM EDT PACE Attendance/[place] [facility] [place] [facility] [address] [place] [address] 03/05/2026 9:00 AM EDT PACE Attendance/[place] [facility] [place] [address] [place] [address] 03/12/2026 9:00 AM EDT PACE Attendance/[place] [facility] [place] [address] [place] [address] 03/19/2026 9:00 AM EDT PACE Attendance/[facility] [place] [facility] [address] [place] [phone] 03/26/2026 9:00 AM EDT PACE Attendance/Day Center [facility] Day Center [address] [place] [phone] 04/02/2026 9:00 AM EDT PACE Attendance/Day Center [facility] Day Center [address] [place] [phone] 04/09/2026 9:00 AM EDT PACE Attendance/Day Center [facility] Day [address] [address] 04/16/2026 9:00 AM EDT PACE Attendance/Day Center [address] [address] 04/23/2026 9:00 AM EDT PACE Attendance/Day Center [address] [address] 06/26/2026 11:15 AM EST Office Visit Pulmonology - [address] [place] [phone] Azul Cohen MD [address] [place] [phone] documented as of this encounter Visit Diagnoses Not on filedocumented in this encounter Care Teams Insurance Actuary Relationship Specialty Start Date End Date Wandy Rivera NP [address] [place] [phone] PCP - General Family Medicine 06/14/24 documented as of this encounter
--- OUTSIDE RECORDS SUMMARY | 2025-07-19 11:46 | XMS_ITS | Encounter Summary ---
Author Organization [facility] Address [address] [place] [phone] Phone Care Team Providers Care Data Collection Interviewer Name Role Phone Enrico Monzon MD Primary Care Prov ider Enrico Monzon MD Primary Care Prov ider Encounter Details Date Type Department Care Team (Late st Contact Info) Description 07/08/2021 Procedure Pass [facility] Endoscopy Admitting Dept Virtual Department [address] [place] [address] Social History Tobacco Use Types Packs/Day Years [...] documented as of this encounter Care Teams Data Collection Interviewer Relationship Specialty Start Date End Date Enrico Monzon MD [email or web address] PCP - General Family Medicine 05/24/19 Enrico Monzon MD [address] [place] [phone] [email or web address] PCP - General Family Medicine 08/03/23 documented as of this encounter Additional Source Comments The information contained in this document represents components of the legal health record. It is not the complete legal health record.[facility]
--- OUTSIDE RECORDS SUMMARY | 2025-07-19 11:46 | XMS_ITS | Encounter Summary ---
Author Organization [facility] Address [address] [place] [address] Phone Care Team Providers Care Bottle Gauger Name Role Phone Enrico Monzon MD Primary Care Prov ider Encounter Details Date Type Department Care Team (Late st Contact Info) Description 01/22/2025 Procedure Pass [facility], Ct Scan [facility] [address] [place] [address] Social History Tobacco Use Types Packs/Day Years [...] on filedocumented in this encounter Care Teams Bottle Gauger Relationship Specialty Start Date End Date Enrico Monzon MD [address] [place] [phone] [email or web address] PCP - General Family Medicine 08/03/23 documented as of this encounter Additional Source Comments The information contained in this document represents components of the legal health record. It is not the complete legal health record.[facility]
--- OUTSIDE RECORDS SUMMARY | 2025-07-19 11:47 | XMS_ITS | Encounter Summary ---
Author Organization [facility] Address [address] [place] [phone] Phone Care Team Providers Care Nail Polish Brush Machine Feeder Name Role Phone Enrico Monzon MD Primary Care Prov ider Enrico Monzon MD Primary Care Prov ider Encounter Details Date Type Department Care Team (Late st Contact Info) Description 11/09/2020 Procedure Pass [facility], [address] [address] Social History Tobacco Use Types Packs/Day Years [...] documented as of this encounter Care Teams Nail Polish Brush Machine Feeder Relationship Specialty Start Date End Date Enrico Monzon MD [email or web address] PCP - General Family Medicine 05/24/19 Enrico Monzon MD [address] [place] [phone] [email or web address] PCP - General Family Medicine 08/03/23 documented as of this encounter Additional Source Comments The information contained in this document represents components of the legal health record. It is not the complete legal health record.[facility]
--- OUTSIDE RECORDS SUMMARY | 2025-07-19 11:47 | XMS_ITS | Encounter Summary ---
Author Organization [facility] Address [address] [place] [address] Phone Care Team Providers Care Resident Care Manager Rn Name Role Phone Enrico Monzon MD Primary Care Prov ider Enrico Monzon MD Primary Care Prov ider Encounter Details Date Type Department Care Team (Latest Contact Info) Description 10/21/2021 Transcribe Orders Virtual Department [address] [place] [address] Roel Zhou MD [address] [place] [address], [address] [place] [address] [email or web address] Chronic hiccoughs (Primary Dx) Social History Tobacco Use Types Packs/Day Years Used Date Smoking Tobacco: Former Cigarettes 0.5 15 1 575 - 2000 Smokeless Tobacco: Never Alcohol Use [...] of this encounter Visit Diagnoses Diagnosis Chronic hiccoughs- Primary documented in this encounter Additional Health Concerns Infection Onset Date Last Indicated Resolved Time CoV-Risk Comment:Neg covid 07/20/2023 07/20/2023 07/21/2023 6:[address] CoV-Risk Comment:2 neg covid 08/03/2023 08/03/2023 08/04/2023 6:[address] C. diff 08/03/2023 08/03/2023 09/02/2023 1:23 AM EST documented as of this encounter Care Teams Resident Care Manager Rn Relationship Specialty Start Date End Date Enrico Monzon MD PCP - General Family Medicine 05/24/19 Enrico Monzon MD [address] [place] [phone] [email or web address] PCP - General Family Medicine 08/03/23 documented as of this encounter Additional Source Comments The information contained in this document represents components of the legal health record. It is not the complete legal health record.[facility]
--- OUTSIDE RECORDS SUMMARY | 2025-07-19 11:47 | XMS_ITS | Encounter Summary ---
Author Organization [facility] Address [address] [place] [address] Care Team Providers Care Class B Truck Driver Name Role Phone Wandy Rivera Aisha MACHINE I COREMAKER Primary Care Provider [phone] Reason for Visit * Reason Onset Date Comments Fall 01/22/2025 Encounter Details Date Type Department Care Team (Late st Contact Info) Description 01/22/2025 PACE On-Call [facility] [address] [place] [phone] Kelsey Cyr LPN Social History Tobacco Use Types Packs/Day Years [...] AM EST documented as of this encounter Progress Notes * Kelsey Cyr LPN - 01/22/2025 5:41 PM EDT Received a phone call from participant's relative reporting an unwitnessed fall. Per relative, the participant followed his outside when he tripped and fell, striking his head on a senior biostatistician. reported that approximately one minute later, she turned around and observed the participant sitting up on the ground. She did not witness the fall directly. Participant reportedly did not lose consciousness, per and relative. He sustained a bump to the left side of the head and a laceration to the back of the head that will likely require sutures. No assistive device was being used at the time of the fall; participant was noted to ambulate independently prior to the incident. Participant currently being evaluated at [facility] in [place], [place] documented in this encounter Plan of Treatment Upcoming Encounters Date Type Department Care Team (Late st Contact Info) Description 07/21/2025 9:00 AM EST PACE Attendance/Day Center [facility] [address] [place] [address] 07/24/2025 9:00 AM EST PACE Attendance/Day Center [address] [phone] 07/25/2025 10:30 AM EST PACE Assessment [facility] [address] [place] [address] Wandy Rivera NP [address] [address] 07/25/2025 1:15 PM EST Office Visit [facility] Hematology Oncology [address] [place] [phone] Rene Kurtz MD [address] [place] [address] 07/26/2025 9:00 AM EST PACE Attendance/Day Center [facility] [address] [place] [address] 07/27/2025 12:00 PM EST PACE Home Care / [facility] [address] [place] [address] [facility] 07/28/2025 9:00 AM EST [facility] Attendance[facility] [facility] [place] [facility] [address] [place] [address] 07/31/2025 9:00 AM EST PACE Attendance[facility] [facility] [place] [facility] [address] [place] [address] 08/01/2025 12:30 PM EST PACE Home Care / [facility] [address] [place] [phone] Nurse, [place] 08/02/2025 9:00 AM EST PACE Attendance[facility] [facility] [place] [facility] [address] [place] [address] 08/03/2025 12:00 PM EST PACE Home Care / [facility] [address] [place] [phone] [facility] 08/04/2025 9:00 AM EST PACE Attendance[facility] [facility] [place] [facility] [address] [place] [address] 08/07/2025 9:00 AM EST [facility]ACE Attendance[facility] [facility] [place] [facility] [address] [place] [address] 08/08/2025 12:30 PM EST PACE Home Care / [facility] [place] [facility] [address] [place] [phone] Nurse[facility] 08/09/2025 9:00 AM EST [facility]ACE Attendance[facility] [facility] [place] [facility] [address] [place] [address] 08/10/2025 12:00 PM EST PACE Home Care / [facility] [place] [facility] [address] [place] [address] NurseCollette 08/11/2025 9:00 AM EST [place] [place] [facility] [place] [facility] [address] [place] [address] 08/14/2025 9:00 AM EST [place] Att[place] [facility] [place] [facility] [address] [place] [address] 08/15/2025 12:30 PM EST PACE Home Care / [place] [place] [facility] [place] [facility] [address] [place] [address] Nurse[facility] 08/16/2025 9:00 AM EST [facility] Attend[facility] [facility] [place] [facility] [address] [place] [address] 08/17/2025 12:00 PM EST PACE Home Care / [facility] [place] [facility] [place] [facility] [address] [place] [address] Nurse[facility] 08/18/2025 9:00 AM EST [facility] Attend[place] [facility] [place] [facility] [address] [place] [address] 08/21/2025 9:00 AM EST [facility] Attend[place] [facility] [place] [facility] [address] [place] [address] 08/22/2025 12:30 PM EST PACE Home Care / [place] [place] [facility] [place] [facility] [address] [place] [address] Nurse[facility] 08/23/2025 9:00 AM EST [place] Att[place] [facility] [place] [facility] [address] [place] [address] 08/24/2025 12:00 PM EST PACE Home Care / [facility] [place] [facility] [address] [place] [address] Nurse, Collette 08/25/2025 9:00 AM EST [facility]ACE Attendance[facility] [facility] [place] [facility] [address] [place] [address] 08/28/2025 9:00 AM EST [facility] Attendance[facility] [facility] [place] [facility] [address] [place] [address] 08/29/2025 12:30 PM EST PACE Home Care / [facility] [place] [facility] [address] [place] [phone] Nurse, Collette 08/30/2025 9:00 AM EST [facility] Attendance[facility] [facility] [place] [facility] [address] [place] [phone] 08/31/2025 12:00 PM EST PACE Home Care / [facility] [place] [facility] [place] [facility] [address] [place] [phone] Nurse, Collette 09/01/2025 9:00 AM EST [facility] Attendance[facility] [facility] [place] [facility] [address] [place] [address] 09/04/2025 9:00 AM EST [facility] Attendance[facility] [facility] [place] [facility] [address] [place] [address] 09/05/2025 12:30 PM EST PACE Home Care / [facility] [address] [place] [phone] Nurse, Collette 09/06/2025 9:00 AM EST [place] Attend[place] [facility] [place] [facility] [address] [place] [phone] 09/07/2025 12:00 PM EST PACE Home Care / [facility] [address] [place] [phone] Nurse, Collette 09/08/2025 9:00 AM EST [place] Attend[place] [facility] [place] [facility] [address] [place] [address] 09/11/2025 9:00 AM EST [place] Attend[place] [facility] [place] [facility] [address] [place] [phone] 09/12/2025 12:30 PM EST PACE Home Care / [place] [facility] [place] [facility] [address] [place] [phone] Nurse, Collette 09/13/2025 9:00 AM EST [place] Attend[place] [facility] [place] [facility] [address] [place] [phone] 09/14/2025 12:00 PM EST PACE Home Care / [facility] [address] [place] [phone] Nurse, Collette 09/15/2025 9:00 AM EST [facility] Attendance[facility] [facility] [place] [facility] [address] [place] [phone] 09/18/2025 9:00 AM EST [place] Attendance[facility] [facility] [place] [facility] [address] [place] [phone] 09/20/2025 9:00 AM EST [facility] Attend[place] [facility] [place] [facility] [address] [place] [address] 09/22/2025 9:00 AM EST [facility] Attendance[place] [facility] [place] [facility] [address] [place] [phone] 09/25/2025 9:00 AM EST [facility] Attendance[facility] [facility] [place] [facility] [address] [place] [phone] 09/27/2025 9:00 AM EST [facility] Attendance[facility] [facility] [place] [facility] [address] [place] [address] 09/29/2025 9:00 AM EST [facility] Attendance[facility] [facility] [place] [facility] [address] [place] [address] 10/02/2025 9:00 AM EST [facility] Attend[place] [facility] [place] [facility] [address] [place] [phone] 10/04/2025 9:00 AM EST [facility] Attendance[facility] [facility] [place] [facility] [address] [place] [address] 10/09/2025 9:00 AM EST [facility] Attendance[facility] [facility] [place] [facility] [address] [place] [address] 10/16/2025 9:00 AM EST [facility] Attend[place] [facility] [place] [facility] [address] [place] [phone] 10/23/2025 9:00 AM EST [facility] Attend[facility] [facility] [place] [facility] [address] [place] [phone] 10/30/2025 9:00 AM EDT [facility] Attendance[facility] [facility] [place] [facility] [address] [place] [phone] 11/06/2025 9:00 AM EDT [facility] Attendance[place] [facility] [place] [facility] [address] [place] [phone] 11/13/2025 9:00 AM EDT [facility] Attendance[facility] [facility] [place] [facility] [address] [place] [phone] 11/20/2025 9:00 AM EDT [facility] Attendance[facility] [place] [facility] [place] [facility] [address] [place] [phone] 11/27/2025 9:00 AM EDT [facility] Attend[facility] [facility] [place] [facility] [address] [place] [phone] 12/04/2025 9:00 AM EDT P[facility] Attendance[facility] [facility] [place] [facility] [address] [place] [address] 12/11/2025 9:00 AM EDT P[facility] Attendance[facility] [facility] [place] [facility] [address] [place] [address] 12/18/2025 9:00 AM EDT P[facility] Attendance[facility] [facility] [place] [facility] [address] [place] [address] 12/25/2025 9:00 AM EDT P[facility] Attendance[facility] [facility] [place] [facility] [address] [place] [phone] 01/01/2026 9:00 AM EDT P[facility] Attendance[facility] [facility] [place] [facility] [address] [place] [phone] 01/08/2026 9:00 AM EDT P[facility] Attendance[facility] [facility] [place] [facility] [address] [place] [phone] 01/15/2026 9:00 AM EDT P[facility] Attendance[facility] [facility] [place] [facility] [address] [place] [phone] 01/22/2026 9:00 AM EDT P[facility] Attendance[facility] [facility] [place] [facility] [address] [place] [phone] 01/29/2026 9:00 AM EDT [facility] Attend[facility] [facility] [place] [facility] [address] [place] [phone] 02/05/2026 9:00 AM EDT [facility] Attend[facility] [facility] [place] [facility] [address] [place] [phone] 02/12/2026 9:00 AM EDT [facility] Attend[facility] [facility] [place] [facility] [address] [place] [phone] 02/19/2026 9:00 AM EDT [facility] Attend[facility] [facility] [place] [facility] [address] [place] [address] 02/26/2026 9:00 AM EDT [facility] Attend[facility] [facility] [place] [facility] [address] [place] [address] 03/05/2026 9:00 AM EDT [facility] Attend[facility] [facility] [place] [facility] [address] [place] [address] 03/12/2026 9:00 AM EDT [facility] [place] [facility] [address] [place] [phone] 03/19/2026 9:00 AM EDT [facility] Day [facility] [address] [place] [phone] 03/26/2026 9:00 AM EDT PACE Attendance/Day Center [facility] Day [facility] [address] [place] [phone] 04/02/2026 9:00 AM EDT [facility] [place] [facility] [address] [place] [phone] 04/09/2026 9:00 AM EDT P[facility] Day Center [address] [place] [phone] 04/16/2026 9:00 AM EDT PACE Attendance/Day Center [facility] PACE Day Center [address] [place] [phone] 04/23/2026 9:00 AM EDT PACE Attendance/Day [place] [facility] [place] [facility] [address] [place] [phone] 06/26/2026 11:15 AM EST Office Visit Pulmonology - [address] [place] [phone] Azul Cohen MD [address] [place] [phone] documented as of this encounter Visit Diagnoses Not on filedocumented in this encounter Care Teams Class B Truck Driver Relationship Specialty Start Date End Date Wandy Rivera NP [address] [place] [address] PCP - General Family Medicine 06/14/24 documented as of this encounter
--- OUTSIDE RECORDS SUMMARY | 2025-07-19 11:47 | XMS_ITS | Encounter Summary ---
Author Organization [facility] Address [address] [place] [address] Phone Care Team Providers Care Building Performance Consultant Name Role Phone Enrico Monzon MD Primary Care Prov ider Enrico Monzon MD Primary Care Prov ider Encounter Details Date Type Department Care Team (Late st Contact Info) Description 01/01/2022 Procedure Pass [facility] Endoscopy Admitting Dept Virtual Department [address] [place] [address] Social History Tobacco Use Types Packs/Day Years [...] documented as of this encounter Care Teams Building Performance Consultant Relationship Specialty Start Date End Date Enrico Monzon MD [email or web address] PCP - General Family Medicine 05/24/19 Enrico Monzon MD [address] [place] [phone] [email or web address] PCP - General Family Medicine 08/03/23 documented as of this encounter Additional Source Comments The information contained in this document represents components of the legal health record. It is not the complete legal health record.[facility]
--- OUTSIDE RECORDS SUMMARY | 2025-07-19 11:47 | XMS_ITS | Clinical Summary ---
Author Organization [facility] Address [address] [place] [address] Phone Care Team Providers Care Theater Education Teacher Name Role Phone Enrico Monzon MD Primary Care Prov ider Allergies No known active allergies Medications pravastatin (PRAVACHOL) 10 MG tablet Take 40 mg by mouth nightly at bedtime. Active albuterol 90 mcg/actuation inhaler Inhale 2 puffs into the lungs every 4 (four) hours as needed for shortness of breath/dyspne a or wheezing. 0 Active thiamine (VITAMIN B-1) 100 MG tablet Take 100 mg by mouth daily. Active famotidine (PEPCID) 40 MG tablet TAKE 1 TABLET BY MOUTH EVERY DAY IN THE EVENING FOR 90 DAYS NEEDED 3 Active memantine (NAMENDA) 10 MG tablet TAKE 1 TABLET TWICE A DAY BY ORAL ROUTE FOR 90 DAYS. 3 Active solifenacin (VESICARE) 10 MG tablet Take 1 tablet by mouth every morning. 3 Active insulin lispro (ADMELOG, HUMALOG) 100 unit/mL injection vial Inject 0-12 Units under the skin 4 (four) times a day with meals and nightly. 14.4 mL 3 Active OLANZapine (ZYPREXA ZYDIS) 5 MG disintegrating tablet Take 0.5 tablets (2.5 mg total) by mouth nightly at bedtime. 3 Active metoprolol tartrate (LOPRESSOR) 50 MG tablet Take 0.5 tablets (25 mg total) by mouth 2 (two) times a day. 30 tablet 3 Active mirtazapine (REMERON) 15 MG tablet Take 1 tablet (15 mg total) by mouth nightly at bedtime. 30 tablet 3 Active ferrous sulfate 325 mg (65 mg [place] iron) tablet Take 325 mg by mouth every other day. Active glipiZIDE (GLUCOTROL) 5 MG tablet Take 5 mg by mouth 2 (two) times a day before meals. Active OLANZapine (ZYPREXA ZYDIS) 5 MG disintegrating tabletIndications: mood Take 5 mg by mouth daily. Indications: mood Active omeprazole (PRILOSEC) 40 MG capsule Take 40 mg by mouth daily. Active Medication-Free TextIndications:AN GUI ELLIPTA 62.5-25 MCG Inhale 62.5 mcg into the lungs daily. Indications: ANORO ELLIPTA 62.5-25 MCG Active Active Problems Problem Noted Date Diagnosed Date Urinary retention 08/07/2023 Assessment & Plan (08/10/2023 11:55 AM EST): Urinary retention. Adames placed 08/04. Renal function stable. - TOV continue to monitor pt is incontinent - Follow I&O and bladder scan PRN - Flomax added C. difficile colitis 08/04/2023 Assessment & Plan (08/10/2023 11:54 AM EST): C.Diff + on 08/03 Pt completed Flagyl IV x 5 days and continued on Vanco PO for 10 days end 08/13 Continue Probiotics Pt was on antibiotics for aspiration pneumonia on prior admission. BCx sent 08/03 final no growth 5 days Broad spectrum abx stopped 08/04 Hypokalemia, hypomagnesemia, hypophosphatemia from diarrhea and poor nutrition, supplementation ordered PRN Dementia 08/03/2023 Edema of left lower extremity 08/03/2023 Proctocolitis 08/03/2023 Assessment & Plan (08/10/2023 11:54 AM EST): GI consulted pt seen by Dr. Padilla - Recommended transition from vanc to Fidaxomicin 200 mg orally twice daily for 10 days to treat severe c.diff (Fidaxomicin is non-formulary) - No role for endoscopy at this time - Stool culture: no salmonella, shigella, campylobacter isolated - Ova and parasites: no parasite present - giardia/crypto: negative Dysphagia 07/23/2023 Assessment & Plan (08/10/2023 12:59 PM EST): Pt wears dentures [employer] [facility] following: trial of puree with thickened liquid today NGT was placed in the ICU but pulled out 08/06-08/07 overnight. NGT replaced 08/08 no bridled tube available, pulled out 08/10 plan to monitor calorie count and replace with bridled tube if caloric intake insufficient. Continue to monitor for improvement as acute infection resolves, [employer] [facility] follow up Assessment & Plan (07/23/2023 5:21 PM EST): Has been followed by [employer] [facility]. Initial bedside evaluation patient with mild dysphagia. He then had an aspiration event on 07/21 with marked desaturation. Underwent modified barium swallow on 07/22 showing moderate oropharyngeal dysphagia resulting in aspiration of thin liquids. -- Diet has been downgraded to minced and moist with mildly thickened liquids -- Should have 1: 1 assistance with feeding, small bites and sips Acute delirium 07/18/2023 Assessment & Plan (08/10/2023 12:43 PM EST): Altered mental status on admission likely d/t delirium w dementia and infection. Head CT on admission without acute finding. Has made some improvements in his mental status since ICU admission where he required Precedex --Routine delirium prevention measures. Aspiration precautions --Follow neuro exam as acute infection improves --Aspiration precautions, fall precaution, delirium prevention --Geriatrics consulted plan to increase day time activity and stimulation as tolerated -- Qtc 498 Zyprexa PRN dose decreased continue to monitor, am EKG 08/11 ordered Assessment & Plan (07/23/2023 5:17 PM EST): On 07/18-Met with at bedside with the use of [place] accounting auditor. states that at baseline patient is forgetful at home but does not know where he is she does note that he gets more confused when he is in an familiar environment. Acute delirium suspected. TSH, B12, folate, HI nonreactive. He has not undergone formal memory testing. He had an aspiration episode on 07/21 with significant desaturation. Clinically improved. [employer] [facility] has been following for dysphagia -- Continue p.m. dose of olanzapine to help promote sleep - Minimize KETTLE SKIMMER active agents. Encourage daytime activity, PT following --See below for dysphagia management Rhabdomyolysis 07/16/2023 Assessment & Plan (07/21/2023 1:32 PM EST): CPK 3267 consistent with rhabdomyolysis. He had fallen 1 day prior to admission and was on the ground for several minutes. --Resolved Pneumonia 07/16/2023 Assessment & Plan (07/23/2023 5:24 PM EST): Developed cough, shortness of breath and oxygen requirement at time of admission. Chest x-ray showed bilateral patchy opacities. Was placed on IV antibiotics then transition to cefpodoxime. Legionella and strep pneumo antigens negative. MRSA screen negative. Chest x-ray on 07/21 similar appearance with bibasilar infiltrates. Antibiotics temporarily broadened to Zosyn out of concern for new aspiration episode. Very likely he is having recurrent aspiration Plan --Given no fever, leukocytosis or new pulmonary concerns, will DC Zosyn. Has received a 7-day course of antibiotics - [employer] following for dysphagia management Esophagitis 02/01/2023 Assessment & Plan (02/01/2023 11:37 PM EDT): Patient with a history of GI bleed back in December 2021. Upper endoscopy at that time shows severe distal esophagitis with small hiatal hernia but no active bleeding. PPI was increased at that time to twice daily. Patient's symptoms improved significantly with IV Protonix and Carafate. No significant acute abdomen on examination. Suspect poor oral intake resulting in gastric irritation. No excessive use of aspirin or NSAIDs recently. -Continue Carafate 3 times a day with meals -Continue Protonix 40 mg twice daily -Serial abdominal examination. May consider imaging if clinically worsens. Transient alteration of awareness 01/01/2022 Assessment & Plan (01/04/2022 8:52 AM EDT): Appears to be at baseline, follow-up with Dr. Han Upper GI bleed 12/31/2021 Assessment & Plan (01/04/2022 8:52 AM EDT): CBC stable this morning, home on PPI Follow-up with [facility] Essential (primary) hypertension 09/05/2020 Assessment & Plan (07/23/2023 5:22 PM EST): BP persistently elevated on home regimen of Norvasc 10 mg daily and Benzepril 40mg daily. Metoprolol was added and uptitrated. Most recent SBP has been in the 130s to 160s Delirium may be contributing to some of his hypertension. SBP improved over last 24 hours to 120s-140s -Continue medications as scheduled including amlodipine, Lotensin and metoprolol Assessment & Plan (02/01/2023 11:39 PM EDT): History of severe hypertension with systolics in the 170s to 190s during his hospitalization. -We will continue his benazepril 40 mg daily along with amlodipine 10 mg daily with holding parameters. -If blood pressure continues to be elevated, may consider as needed hydralazine. Would avoid diuretics. Type 2 diabetes mellitus without complication Overview (08/03/2023): Last Assessment & Plan: Patient taking glipizide 5 mg twice daily and documented to be taking metformin prior to admission. The dose of Metformin was not identified Hemoglobin A1c of 6.4% on admission Blood sugars improved to 130s today Continue with Lantus 5 units nightly and sliding scale insulin, continue glipizide Assessment & Plan (08/10/2023 12:58 PM EST): A1C 6.4 on 06/2023 FS ACHS Continue SS insulin coverage, add basal coverage NGT pulled out twice, currently on trial of PO diet with calorie count May need insulin adjusted as nutrition improves Assessment & Plan (07/21/2023 1:33 PM EST): Hemoglobin A1c is 6.4. Sugar levels currently in the 100-200 range --Holding p.o. antiglycemics Assessment & Plan (02/01/2023 11:35 PM EDT): Asymptomatic hypoglycemia of 64. Likely due to poor oral intake recently. Improved to 159 in the ED. -Holding glipizide -We will start [id number] testing with low-dose insulin sliding as needed Assessment & Plan (01/04/2022 8:48 AM EDT): Resume outpatient medication regimen Assessment & Plan (08/06/2020 5:35 PM EST): Patient taking glipizide 5 mg twice daily and documented to be taking metformin prior to admission. The dose of Metformin was not identified Hemoglobin A1c of 6.4% on admission Blood sugars improved to 130s today Continue with Lantus 5 units nightly and sliding scale insulin, continue glipizide Hyponatremia 07/30/2020 Assessment & Plan (07/23/2023 5:23 PM EST): Sodium level at time of admission was 127, treated with IV fluids with improvement. Most recent labs show sodium level 143 --Continue to monitor. Assessment & Plan (02/01/2023 11:34 PM EDT): Patient had a previous episode of hyponatremia down to 108 requiring ICU monitoring and hypertonic saline. Suspected due to alcohol/low caloric protein intake in his interstitial lung disease. Patient now represents with hyponatremia 123. Appears hypoosmolality hyponatremia. No significant mental status change. Neurologically intact. I suspect epigastric pain is unrelated to the hyponatremia. As symptoms improved with Carafate and Protonix. ED spoke with nephrology, recommended fluid restriction and may consider normal saline fluid if needed. But given his increased free fluid intake over the past few days, likely the culprit for his hyponatremia. -Patient will be observed on MedSurg -Repeating BMP now and in the morning -Fluid restriction of 1500 mL - Tsh w/reflex in am -Nephrology consultation Assessment & Plan (01/04/2022 8:52 AM EDT): Follow-up with Dr. Larios 133 this morning Assessment & Plan (08/06/2020 5:33 PM EST): Sodium has improved only slightly today to 130, we will continue with the 1 L fluid restriction. Trend BMP We will also continue the patient on recommended urea packet twice daily We will send the area to the pharmacy for processing to determine if it is covered by insurance Assessment & Plan (08/04/2020 2:38 PM EST): Improved to 127 this morning. Fluid restriction 1500mL. Tolerating fluid restriction well. Appreciate nephrology input. Discussed with nephrology, appreciate input. Recommending 15 gm urea powder BID. Will start today, recheck labs in the morning. Interstitial lung disease 07/18/2020 Assessment & Plan (08/09/2023 10:38 AM EST): - CT chest on admission showing worsening ILD and LLL pulmonary nodule. - Pt currently on room air. - F/u with pulmonary and imaging as an outpatient regarding pulmonary nodule on CT scan. - Aspiration precautions Assessment & Plan (02/01/2023 11:34 PM EDT): Clinically stable. Continue albuterol as needed. Assessment & Plan (01/03/2022 10:50 AM EDT): Continue albuterol as needed. Assessment & Plan (08/05/2020 4:50 PM EST): Patient diagnosed as an outpatient with interstitial lung disease. He is maintaining O2 sats at 95% to 99% on room air. Continue with albuterol inhaler as needed Assessment & Plan (08/03/2020 12:59 PM EST): Remains on room air. Plan for continued outpatient workup, possibly outpatient bronchoscopy. Chronic hiccups Assessment & Plan (02/01/2023 11:40 PM EDT): History of chronic hiccups previously on baclofen. This was discontinued due to concern for delirium during last hospitalization. Additionally, previously Thorazine was used but caused significant sedation. Patient received 1 dose of Reglan for treatment in the ED. -May consider additional doses of Reglan Resolved Problems Problem Noted Date Diagnosed Date Resolved Date Septic shock 08/03/2023 08/06/2023 Fever 08/03/2023 08/06/2023 NANCY (acute kidney injury) 08/03/2023 Immunizations Immunization Administration Dates Next Due Influenza High-Dose Quadriva lent Preservative Free IM 08/11/2023(Deferred: Patient Refused) Pneumococcal conjugate PCV13 07/31/2020(Deferred : Contraindication) Tdap 01/22/2025 Social History Tobacco Use Types Packs/Day Years Used Date Smoking Tobacco: Former Cigarettes 0.5 15 1 985 - 2000 Smokeless Tobacco: Never Tobacco Cessation:Counseling Given: Not Answered Alcohol Use Standard Drinks/Week Comments Yes 0 [...] AM EDT Sexual Orientation Not on file Last Filed Vital Signs Vital Sign Reading Time Taken Comments Blood Pressure 212/83 01/22/2025 5:40 PM EDT Pulse 68 01/22/2025 3:30 PM EDT Temperature 37.6 C (99.7 F) 07/26/2024 7:21 PM EST Respiratory Rate 16 01/22/2025 3:30 PM EDT Oxygen Saturation 98% 01/22/2025 3:41 PM EDT Inhaled Oxygen Concentration - - Weight 71.7 kg (158 lb) 07/26/2024 4:21 PM EST Height 182.9 cm (6') 07/26/2024 4:21 PM EST Body Mass Index 21.43 07/26/2024 4:21 PM EST Plan of Treatment Health Maintenance Due Date Last Done Comments BLOOD PRESSURE 1946 DEPRESSION SCREENING 1958 HEPATITIS C SCREENING 1964 ZOSTER VACCINES (1 of 2) 1996 DIABETIC EYE EXAM 08/05/2020 URINE MICROALBUMIN/CREATININE RATIO 08/05/2020 RSV VACCINE (1 - 1-dose 75+ series) 2021 INFLUENZA VACCINE (#1) 2025 COVID-19 VACCINE (2024- season) 2025 12/01/2020, 11/08/2020 HEMOGLOBIN A1C 07/21/2025 01/18/2025, 06/25, 02/03/2023, Additional history exists LIPID PANEL 01/18/2026 01/18/2025 Adult Td,Tdap Booster 01/22/2035 01/22/2025, 012 PNEUMOCOCCAL VACCINES (50+ years) Completed 01/29/2016, 11/04/2011 SMOKING STATUS SCREENING (Once After 26 Yrs) Completed 08/10/2023 HEPATITIS A VACCINES Aged Out No long er eligible based on patient's age to complete this topic HIB VACCINES Aged Out No longer eligi ble based on patient's age to complete this topic MENINGOCOCCAL VACCINES (ACWY) Aged Out No longer eligible based on patient's age to complete this topic MENINGOCOCCAL VACCINES (B) Aged Out N o longer eligible based on patient's age to complete this topic Medical Devices Not on file Procedures Procedure Name Priority Date/Time Associated Diagnosis Comments HEMOGLOBIN A1C Routine 07/17/2023 6:31 AM EST from Last 3 Months or Most Recently Relevant to Health Maintenance Results * (ABNORMAL) Hemoglobin A1c (07/17/2023 6:31 AM EST) HEMOGLOBIN A1C 6.4(H) 4.3 - 5.8 % [facility] Blood 07/17/2023 6:31 AM EST 07/17/2023 7:35 AM EST us Pam Quintero DO LAB BLOOD BKR ORDERABLES Ana l Result [address] [address] from Last 3 Months or Most Recently Relevant to Health Maintenance Insurance MEDICARE PART A & B [facility] RE[facility]AC[facility] MEDICARE PART A & B [facility] RE[facility] MEDICARE PART A & [place] [facility] MEDICARE PART A & [place] [facility] MEDICARE PART A & B [facility] REPLACEMENT MEDICARE PART A & B [place] REPLACEMENT Advance Directives For more information, please contact: [phone] (9AM - 5PM [facility], Thursday-Thursday) Documents on File Type Date 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 Healthcare Proxy 07/23/2023 2:20 PM healt hcare proxy Healthcare Proxy 07/22/2023 3:04 PM healt hcare proxy MOLST 07/22/2023 3:03 PM molst * Full Code (Latest Code Status on File) Date Activated Date Inactivated Comments 08/03/2023 7:36 PM Question Answer Comments Code Status Confirmed With: FamilySurrogate * Full Code Date Activated Date Inactivated Comments 07/16/2023 8:35 PM 08/03/2023 7:36 PM Question Answer Comments Code Status Confirmed With: Family * Full Code Date Activated Date Inactivated Comments 02/01/2023 11:18 PM 07/16/2023 8:35 PM Question Answer Comments Code Status Confirmed With: Patient Code Status Communicated To: Inpatient Attending * Full Code Date Activated Date Inactivated Comments 12/31/2021 5:00 PM 02/01/2023 11:18 PM Question Answer Comments Code Status Confirmed With: Patient * Full Code Date Activated Date Inactivated Comments 07/30/2020 9:39 PM 12/31/2021 5:00 PM Question Answer Comments Code Status Confirmed With: Family Code Status Communicated To: Inpatient Attending Healthcare Agents on File Name Relationship Healthcare Agent Relationshi p Communication Virgilio Marroquin Spouse .Primary Heal th Care Agent (Proxy form on file) Care Teams Theater Education Teacher Relationship Specialty Start Date End Date Enrico Monzon MD [address] [place] [phone] [email or web address] PCP - General Family Medicine 08/03/23 Additional Source Comments The information contained in this document represents components of the legal health record. It is not the complete legal health record.[facility]
--- OUTSIDE RECORDS SUMMARY | 2025-07-19 11:47 | XMS_ITS | Encounter Summary ---
Author Organization [facility] Address [address] [place] [phone] Phone Care Team Providers Care Care Program Resident Name Role Phone Enrico Monzon MD Primary Care Prov ider Enrico Monzon MD Primary Care Prov ider Reason for Referral * MRI/CAT Scan - Closed Specialty Diagnoses / Procedures Referred By Graciela song Referred To Contact Radiology Diagnoses Memory loss Procedures MRI Brain Roel Zhou MD Phone: tel: fax: [email or web address] Referral ID Status Reason Start Date Expiration Date Visits Re quested Visits Authorized [id number] Closed 11/09/2020 11/09/2021 1 1 Encounter Details Date Type Department Care Team (Latest Contact Info) Description 11/09/2020 Transcribe Orders Virtual Department [address] [place], [place] [id number] Roel Zhou MD [address] [place] [address], [address] [place], [place] [id number] [email or web address] Memory loss (Primary Dx) Social History Tobacco Use Types [...] documented as of this encounter Results * MRI BRAIN WITH AND WITHOUT CONTRAST (11/27/2020 8:10 AM EDT) Anatomical Region Laterality Modality Head Magnetic Resonan ce 11/27/2020 8:01 AM EDT Impressions 11/27/2020 8:26 AM EDT No findings to account for the patient's symptoms. Narrative 11/27/2020 8:26 AM EDT COMPARISON: CT head 07/30/2020. TECHNIQUE: Exam performed on a 1.5 Pallavi high-field MRI scanner. Axial T1, GRE, T2, FLAIR and diffusion-weighted with ADC map, sagittal FLAIR and T1, followed by post-gadolinium axial and sagittal T1 sequences were obtained. MRI BRAIN FINDINGS: Brain: No cerebellar tonsil herniation. Pituitary gland is not enlarged. No restricted diffusion to indicate acute or subacute ischemia. No intraparenchymal susceptibility artifact to indicate hemorrhage. Mild generalized cortical atrophy. Minimal T2 hyperintense periventricular changes which may be due to chronic microangiopathy. No significant white matter disease. No mass, mass effect, midline shift or extra-axial fluid collections. No abnormal enhancement. Ventricles: No hydrocephalus. Stable mild enlargement due to generalized atrophy. Vasculature: Normal vascular flow-voids. Orbits: Normal. Mastoids/Middle Ear/Paranasal Sinuses: Moderate left nasal septal deviation. No acute findings. Soft Tissues: Unremarkable. Bone Marrow: Unremarkable. Procedure Note Rickie Wilson MD - 11/27/2020 COMPARISON: CT head 07/30/2020. TECHNIQUE: Exam performed on a 1.5 Pallavi high-field MRI scanner. AxialT1, GRE, T2, FLAIR and diffusion-weighted with ADC map, sagittal FLAIR andT1, followed by post-gadolinium axial and sagittal T1 sequences wereobtained. MRI BRAIN FINDINGS: Brain: No cerebellar tonsil herniation. Pituitary gland is not enlarged.No restricted diffusion to indicate acute or subacute ischemia. Nointraparenchymal susceptibility artifact to indicate hemorrhage. Mildgeneralized cortical atrophy. Minimal T2 hyperintense periventricularchanges which may be due to chronic microangiopathy. No significant whitematter disease. No mass, mass effect, midline shift or extra- axial fluidcollections. No abnormal enhancement. Ventricles: No hydrocephalus. Stable mild enlargement due to generalizedatrophy. Vasculature: Normal vascular flow-voids. Orbits: Normal. Mastoids/Middle Ear/Paranasal Sinuses: Moderate left nasal septaldeviation. No acute findings. Soft Tissues: Unremarkable. Bone Marrow: Unremarkable. IMPRESSION: No findings to account for the patient's symptoms. us Roel Zhou MD IMG MR HEAD/NECK Final Resul t documented in this encounter Visit Diagnoses Diagnosis Memory loss- Primary Memory loss documented in this encounter Additional Health Concerns Infection Onset Date Last Indicated Resolved Time CoV-Risk Comment:Neg covid 07/20/2023 07/20/2023 07/21/2023 6:[address] CoV-Risk Comment:2 neg covid 08/03/2023 08/03/2023 08/04/2023 6:[address] C. diff 08/03/2023 08/03/2023 09/02/2023 1:23 AM EST documented as of this encounter Care Teams Care Program Resident Relationship Specialty Start Date End Date Enrico Monzon MD [email or web address] PCP - General Family Medicine 05/24/19 Enrico Monzon MD [address] [place] [phone] [email or web address] PCP - General Family Medicine 08/03/23 documented as of this encounter Additional Source Comments The information contained in this document represents components of the legal health record. It is not the complete legal health record.[facility]
== END 2025-07-19 10:23 | disposition home or self-care (01) ==
LOC: HO.HUSH 10:05
PROVIDERS: PCP Nurse Practitioner Family; Visit Provider Urology
DX: C61 Malignant neoplasm of prostate (principal); N30.40 Irradiation cystitis without hematuria
CPT/HCPCS: 99213; G2211